=== PATIENT | male | born 1965 | race African-American/Black ===

== ENCOUNTER 2017-06-13 09:14 | Inpatient (IN) | payer OTHER ==
[2017-06-13 11:40] VITALS: BMI 24.5
--- NOTE | 2017-06-13 12:09 | HP ---
CIWA Score - CIWA Score Nausea/Vomitin Muscle Tremors: 3 Anxiety: 3 Agitation: 2 Paroxysmal Sweats: 1-Minimal Palms Moist Orientation: 0-Oriented Tacttile Disturbances: 2-Mild Itch/Numbness/Burn Auditory Disturbances: 2-Mild Harshness/Frighten Visual Disturbances: 2-Mild Sensitivity Headache: 2-Mild CIWA-Ar Total Score: 20 Admission ROS BHS - HPI Chief Complaint: I NEED HELP TO STOP DRINKING ALCOHOL AND COCAINE Allergies/Adverse Reactions: Allergies Allergy/AdvReac Type Severity Reaction Status Date / Time No Known Drug Allergies Allergy Verified 06/13/17 12:00 turkey Allergy Mild Uncoded 06/13/17 12:00 History of Present Illness: THIS 51 YEARS OLD WITH ALCOHOL AND COCAINE DEPENDENCE,SEEKING DETOX,LAST TREATMENT IN 05/2012 COMPLETED SYNCOPE NICOTINE DEPENDENCE INSOMNIA LONGEST SOBRIETY 5 YEARS Exam Limitations: No Limitations - Ebola screening Have you traveled outside of the country in the last 21 days: No Have you had contact with anyone from an Ebola affected area: No Have you been sick,other than usual withdrawal symptoms: No Do you have a fever: No - Review of Systems Constitutional: Loss of Appetite, Malaise, Night Sweats, Changes in sleep, Weakness, Unintentional Wgt. Loss EENT: reports: Nose Congestion Respiratory: reports: No Symptoms reported, Other (ASTHMA) Cardiac: reports: Palpitations GI: reports: Diarrhea, Nausea, Vomiting, Abdominal cramping : reports: No Symptoms Reported Musculoskeletal: reports: Back Pain, Muscle Pain Integumentary: reports: Dryness Neuro: reports: Headache, Tremors Endocrine: reports: No Symptoms Reported Hematology: reports: No Symptoms Reported Psychiatric: reports: No Sypmtoms Reported, Mood/Affect Appropiate, Orientated x3 (INSOMNIA) Patient History - Patient Medical History Hx Anemia: No Hx Asthma: Yes (albuterol , advair) Hx Chronic Obstructive Pulmonary Disease (COPD): No Hx Cancer: No Hx Cardiac Disorders: No Hx Congestive Heart Failure: No Hx Hypertension: No Hx Hypercholesterolemia: No Hx Pacemaker: No HX Cerebrovascular Accident: No Hx Seizures: No Hx Dementia: No Hx Diabetes: No Hx Gastrointestinal Disorders: No Hx Liver Disease: No Hx Genitourinary Disorders: No Hx Sexually Transmitted Disorders: No Hx Renal Disease (ESRD): No Hx Thyroid Disease: No Hx Human Immunodeficiency Virus (HIV): No (02/2012- negative) Hx Hepatitis C: No Hx Depression: Yes (lexapro 20mg/day) Hx Suicide Attempt: No Hx Bipolar Disorder: No Hx Schizophrenia: No Other Medical History: NO SUICIDAL,NO HOMICIDAL - Patient Surgical History Past Surgical History: No Hx Neurologic Surgery: No Hx Cataract Extraction: No Hx Cardiac Surgery: No Hx Lung Surgery: No Hx Breast Surgery: No Hx Breast Biopsy: No Hx Abdominal Surgery: No Hx Appendectomy: No Hx Cholecystectomy: No Hx Genitourinary Surgery: No Hx Section: No Hx Orthopedic Surgery: No Anesthesia Reaction: No - PPD History Documented Results: Negative w/o proof Implanted On Prior [facility] Admission?: Yes Date: 03/26/12 Results: 0 MM PPD to be Administered?: Yes - Smoking Cessation Smoking history: Current every day smoker Have you smoked in the past 12 months: Yes Aproximately how many cigarettes per day: 10 Cigars Per Day: 0 Hx Chewing Tobacco Use: No Initiated information on smoking cessation: Yes 'Breaking Loose' booklet given: 06/13/17 - Substance & Tx. History Hx Alcohol Use: Yes Hx Substance Use: Yes Substance Use Type: Alcohol, Cocaine Hx Substance Use Treatment: Yes ([facility] [place] 05/27) - Substances Abused Alcohol Route: Oral Frequency: Daily Amount used: 12PK BEER/ 1 PINT Age of first use: 24 Date of Last Use: 06/13/17 Crack Route: Smoking Frequency: Daily Amount used: $40 Age of first use: 28 Date of Last Use: 06/13/17 Family Disease History - Family Disease History Family History: Denies Admission Physical Exam [facility] - Vital Signs Vital Signs: Vital Signs - 24 hr 06/13/17 11:33 Temperature 98.5 F Pulse Rate 106 H Respiratory 18 Rate Blood Pressure 122/82 - Physical General Appearance: Yes: Moderate Distress, Tremorous, Irritable, Sweating, Anxious HEENTM: Yes: Normal ENT Inspection, BJ, Pharynx Normal Respiratory: Yes: Lungs Clear, Normal Breath Sounds, No Respiratory Distress Neck: Yes: Within Normal Limits, Supple, Trachea in good position Breast: Yes: Within Normal Limits Cardiology: Yes: Within Normal Limits, Regular Rhythm, Regular Rate, S1, S2 Abdominal: Yes: Within Normal Limits, Normal Bowel Sounds, Non Tender, Flat, Soft Genitourinary: Yes: Within Normal Limits Back: Yes: Muscle Spasm Musculoskeletal: Yes: Back pain, Muscle Pain Extremities: Yes: Tremors Neurological: Yes: licensed sales assistant II-XII NML intact, Fully Oriented, Alert, Motor Strength 5/5 Integumentary: Yes: Dry Lymphatic: Yes: Within Normal Limits - Diagnostic (1) Alcohol dependence with uncomplicated withdrawal Current Visit: Yes Status: Acute (2) Cocaine dependence Current Visit: Yes Status: Acute (3) Nicotine dependence Current Visit: Yes Status: Acute (4) Asthma Current Visit: Yes Status: Acute (5) Major depressive disorder Current Visit: No Status: Active (6) Weight loss Current Visit: Yes Status: Acute (7) Insomnia Current Visit: Yes Status: Acute Cleared for Admission S - Detox or Rehab [facility] Level of Care: Medically Managed Detox Regimen/Protocol: Librium [facility] Breath Alcohol Content Breath Alcohol Content: 0.172 Urine Drug Screen - Results Drug Screen Negative: No Urine Drug Screen Results: DORA-Cocaine
[2017-06-13] MEDS ORDERED: chlordiazePOXIDE HCL 25 MG CAPSULE PO PRN (12:20)
[2017-06-13] MEDS ORDERED: MAGNESIUM CITRATE 300 ML BOTTLE PO PRN (12:20)
[2017-06-13] MEDS ORDERED: ACETAMINOPHEN 325 MG TABLET (FP) PO PRN (12:20)
[2017-06-13] MEDS ORDERED: P-EPHED 60MG/TRIPROLIDI 2.5MG TABLET PO PRN (12:20)
[2017-06-13] MEDS ORDERED: IBUPROFEN 400 MG TABLET (FP) PO PRN (12:20)
[2017-06-13] MEDS ORDERED: LOPERAMIDE HCL 2 MG CAPSULE PO PRN (12:20)
[2017-06-13] MEDS ORDERED: MENTHOL/PHENOL 1 EACH UD MM PRN (12:20)
[2017-06-13] MEDS ORDERED: MAG HYDROX/AL HYDROX/SIMETH 30 ML UNIT-DOSE CUP PO PRN (12:20)
[2017-06-13] MEDS ORDERED: guaiFENesin/D-METHORPHAN HB 10 ML UNIT-DOSE CUPS PO PRN (12:20)
[2017-06-13] MEDS ORDERED: MAGNESIUM HYDROX 2400MG/30ML ORAL SUSPENSION 30 ML CUP PO PRN (12:20)
[2017-06-13] MEDS ORDERED: hydrOXYzine PAMOATE 50 MG CAPSULE (FP) PO PRN (12:20)
[2017-06-13] MEDS ORDERED: diphenhydrAMINE HCL 50 MG CAPSULE PO PRN (12:20)
[2017-06-13] MEDS ORDERED: chlordiazePOXIDE HCL 25 MG CAPSULE PO ONE (14:09)
[2017-06-13] MEDS: NICOTINE 21 MG/24 HOURS TOPICAL PATCH TD SCH (15:13)
[2017-06-13] MEDS: chlordiazePOXIDE HCL 25 MG CAPSULE PO SCH ×2 (17:55→22:17)
[2017-06-13] MEDS: THIAMINE HCL 100 MG TABLET (FP) PO SCH (22:18)
[2017-06-13 23:28] LABS: URINE APPEARANCE CLEAR; URINE BILIRUBIN NEGATIVE (NEGATIVE); URINE BLOOD NEGATIVE (NEGATIVE); URINE COLOR STRAW; URINE GLUCOSE (UA) NEGATIVE (NEGATIVE); URINE KETONE NEGATIVE (NEGATIVE); URINE LEUK ESTERASE NEGATIVE (NEGATIVE); URINE NITRITE NEGATIVE (NEGATIVE); URINE PROTEIN NEGATIVE (NEGATIVE); URINE UROBILINOGEN NEGATIVE mg/dL (0.2-1.0)
[2017-06-14] MEDS: chlordiazePOXIDE HCL 25 MG CAPSULE PO SCH ×4 (06:44→22:12)
[2017-06-14] MEDS: NICOTINE 21 MG/24 HOURS TOPICAL PATCH TD SCH (10:18)
[2017-06-14] MEDS: PRENATAL VITAMINS W/ FOLIC ACID TABLET (FP) PO SCH (10:18)
[2017-06-14 10:27] LABS: ALBUMIN 4.2 g/dl (3.4-5.0); ANION GAP 12 (8-16); BILIRUBIN,TOTAL 1.3 mg/dL (0.2-1.0); CALCIUM 8.7 mg/dL (8.5-10.1); CO2 23 mmol/L (21-32); CREATININE 1.1 mg/dL (0.7-1.3); GLUCOSE,RANDOM 102 mg/dL (74-106); SGOT/AST 17 U/L (15-37); SGPT/ALT 19 U/L (12-78); TOT PROT 7.6 g/dl (6.4-8.2)
[2017-06-14 10:28] LABS: ALK PHOS 61 U/L (45-117)
[2017-06-14] MEDS ORDERED: FLU VACCINE QUAD 60 MCG/0.5 ML (MDV 17-18) IM ONE (12:00)
--- NOTE | 2017-06-14 13:08 | EKG ---
Test Reason : Blood Pressure : / mmHG Vent. Rate : 080 BPM Atrial Rate : 080 BPM P-R Int : 172 ms QRS Dur : 082 ms QT Int : 390 ms P-R-T Axes : 072 070 074 degrees QTc Int : 449 ms NORMAL SINUS RHYTHM NORMAL ECG NO PREVIOUS ECGS AVAILABLE Confirmed by GABBY CHAN MD ([id number]) on 06/14/2017 1:08:16 PM Referred By: Confirmed By:GABBY CHAN MD
--- NOTE | 2017-06-14 14:03 | PN ---
[facility] CIWA - CIWA Score Nausea/Vomitin Muscle Tremors: 3 Anxiety: 3 Agitation: 2 Paroxysmal Sweats: 1-Minimal Palms Moist Orientation: 0-Oriented Tacttile Disturbances: 1-Very Mild Itch/Numbness Auditory Disturbances: 1-Very Mild Visual Disturbances: 1-Very Mild Sensitivity Headache: 2-Mild CIWA-Ar Total Score: 17 BHS Progress Note (SOAP) Subjective: ALERT,IRRITABLE,ANXIOUS,INTERRUPTED SLEEP,TREMOR,PAIN IN THE BODY Objective: 06/14/17 14:00 Vital Signs Temperature 96.3 F L 06/14/17 13:36 Pulse Rate 116 H 06/14/17 13:36 Respiratory Rate 20 06/14/17 13:36 Blood Pressure 108/72 06/14/17 13:36 O2 Sat by Pulse Oximetry (%) EKG NSR,NORMAL ECG Laboratory Last Values Sodium 135 mmol/L (136-145) L 06/14/17 06:00 Potassium 3.2 mmol/L (3.5-5.1) L D 06/14/17 06:00 Chloride 100 mmol/L (98-107) 06/14/17 06:00 Carbon Dioxide 23 mmol/L (21-32) D 06/14/17 06:00 Anion Gap 12 (8-16) 06/14/17 06:00 BUN 4 mg/dL (7-18) L D 06/14/17 06:00 Creatinine 1.1 mg/dL (0.7-1.3) 06/14/17 06:00 Creat Clearance w eGFR > 60 (>60) 06/14/17 06:00 Random Glucose 102 mg/dL (74-106) D 06/14/17 06:00 Calcium 8.7 mg/dL (8.5-10.1) 06/14/17 06:00 Total Bilirubin 1.3 mg/dL (0.2-1.0) H 06/14/17 06:00 AST 17 U/L (15-37) D 06/14/17 06:00 ALT 19 U/L (12-78) D 06/14/17 06:00 Alkaline Phosphatase 61 U/L (45-117) 06/14/17 06:00 Total Protein 7.6 g/dl (6.4-8.2) 06/14/17 06:00 Albumin 4.2 g/dl (3.4-5.0) 06/14/17 06:00 Urine Color Straw 06/13/17 22:23 Urine Appearance Clear 06/13/17 22:23 Urine pH 6.0 (5.0-8.0) 06/13/17 22:23 Ur Specific [place] <= 1.005 (1.005-1.025) 06/13/17 22:23 Urine Protein Negative (NEGATIVE) 06/13/17 22:23 Urine Glucose (UA) Negative (NEGATIVE) 06/13/17 22:23 Urine Ketones Negative (NEGATIVE) 06/13/17 22:23 Urine Blood Negative (NEGATIVE) 06/13/17 22:23 Urine Nitrite Negative (NEGATIVE) 06/13/17 22:23 Urine Bilirubin Negative (NEGATIVE) 06/13/17 22:23 Urine Urobilinogen Negative mg/dL (0.2-1.0) 06/13/17 22:23 RPR Titer Nonreactive (NONREACTIVE) 06/14/17 06:00 K IS 3.2 Assessment: 06/14/17 14:01 WITHDRAWAL SYMPTOM Plan: WITHDRAWAL SYMPTOM,HYPOKALEMIA K IS 3.2,K DUR 20 MEQ PO BID
[2017-06-14] MEDS ORDERED: POTASSIUM CHLORIDE TABS 20 MEQ TABLET.ER (FP) PO ONE (15:00)
--- NOTE | 2017-06-14 18:37 | CONSULT ---
[facility] Psychiatric Consult - Data Date of interview: 06/14/17 Admission source: [facility] Identifying data: Readmission to [facility] for this 51 y/o AA male seeking detox treatment on for alcohol and cocaine dependence.Patient is single without children,domiciled,uneployed and supporteed on SSI benefits. Substance Abuse History: Discussed with patient.Confirmed this report. Smoking Cessation. Smoking history: Current every day smoker. Have you smoked in the past 12 months: Yes. Aproximately how many cigarettes per day: 10. Cigars Per Day: 0. Hx Chewing Tobacco Use: No. Initiated information on smoking cessation : Yes. 'Breaking Loose' booklet given: 06/13/17. - Substance & Tx. History. Hx Alcohol Use: Yes. Hx Substance Use: Yes. Substance Use Type: Alcohol, Cocaine. Hx Substance Use Treatment: Yes ([facility] IN 05/27). - Substances Abused. Alcohol. Route: Oral. Frequency: Daily. Amount used: 12PK BEER/ 1 PINT. Age of first use: 24. Date of Last Use: 06/13/17. Crack. Route: Smoking. Frequency: Daily. Amount used: $40. Age of first use: 28. Date of Last Use: 06/13/17 Medical History: Bronchial asthma. Psychiatric History: Diagnosed with Bipolar Disorder.Prescribed lexapro 20 mg/ day + trazodone 100 mg/hs + zyprexa 20 mg/day.Patient is followed at [facility] in [facility].Mr Obrien reports one psychiatric hospitalization,in 2010,at the [facility].No history of suicide attempt but suicidal ideation to jump off a roof (reason of his hospitalization). Physical/Sexual Abuse/Trauma History: Patient denies. Additional Comment: Urine Drug Screen Results: DORA-Cocaine.Noted. Mental Status Exam - Mental Status Exam Alert and Oriented to: Time, Place, Person Cognitive Function: Good Patient Appearance: Well Groomed Mood: Hopeful, Euthymic Affect: Normal Range Patient Behavior: Appropriate, Cooperative (good historian) Speech Pattern: Clear Voice Loudness: Normal Thought Process: Goal Oriented Thought Disorder: Not Present Hallucinations: Denies Suicidal Ideation: Denies Homicidal Ideation: Denies Insight/Judgement: Poor Sleep: Poorly, Difficulty falling asleep Appetite: Good Muscle strength/Tone: Normal Gait/Station: Normal Psychiatric Findings - Problem List ([place] 1, 2,3) (1) Bipolar disorder Current Visit: Yes Status: Chronic (2) Alcohol dependence with uncomplicated withdrawal Current Visit: Yes Status: Acute (3) Cocaine dependence Current Visit: Yes Status: Acute (4) Nicotine dependence Current Visit: Yes Status: Acute (5) Insomnia Current Visit: Yes Status: Acute - Initial Treatment Plan Initial Treatment Plan: Psychoeducation.Detoxification.Medications : lexapro 10 mg po daily + trazodone 100 mg po hs + zyprexa 20 mg po hs (all confirmed by pharmacy claims of 06/13/17 at [facility]).Patient declines lithium ( 300 mg/day as per claims).Side effects/benfits of these drugs are discussed with patient.Made aware,in particular,of the risk for metabolic syndrome, suicidal ideation and priapism.History of good tolerability as per patient.He agrees to resume his medications in this hospital course.Observation.NO scripts needed at discharge from [facility].
[2017-06-14 20:37] LABS: MCH 34.1 pg (25.7-33.7); MCHC 34.1 g/dl (32.0-35.9); MEAN CELL VOLUME 100.2 fl (80-96); MEAN PLT VOLUME 9.6 fl (7.5-11.1); PLATELET COUNT 200 K/MM3 (134-434)
[2017-06-14] MEDS: THIAMINE HCL 100 MG TABLET (FP) PO SCH (22:12)
[2017-06-14] MEDS: OLANZapine 10 MG TABLET PO SCH (22:12)
[2017-06-14] MEDS: POTASSIUM CHLORIDE TABS 20 MEQ TABLET.ER (FP) PO SCH (22:12)
[2017-06-14] MEDS: traZODone HCL 100 MG TABLET (FP) PO SCH (22:13)
[2017-06-15] MEDS: chlordiazePOXIDE HCL 25 MG CAPSULE PO SCH ×2 (05:22→10:18)
[2017-06-15] MEDS: PRENATAL VITAMINS W/ FOLIC ACID TABLET (FP) PO SCH (10:18)
[2017-06-15] MEDS: NICOTINE 21 MG/24 HOURS TOPICAL PATCH TD SCH (10:18)
[2017-06-15] MEDS: ESCITALOPRAM OXALATE 10 MG TABLET (FP) PO SCH (10:18)
[2017-06-15] MEDS: POTASSIUM CHLORIDE TABS 20 MEQ TABLET.ER (FP) PO SCH ×2 (10:18→22:12)
--- NOTE | 2017-06-15 13:18 | PN ---
[facility] CIWA - CIWA Score Nausea/Vomitin Muscle Tremors: 2 Anxiety: 2 Agitation: 2 Paroxysmal Sweats: 1-Minimal Palms Moist Orientation: 0-Oriented Tacttile Disturbances: 1-Very Mild Itch/Numbness Auditory Disturbances: 1-Very Mild Visual Disturbances: 0-None Headache: 2-Mild CIWA-Ar Total Score: 14 BHS Progress Note (SOAP) Subjective: ALERT,IRRITABLE,ANXIOUS,INTERRUPTED SLEEP,PAIN IN THE BODY Objective: 06/15/17 13:17 Vital Signs Temperature 96.5 F L 06/15/17 11:46 Pulse Rate 77 06/15/17 11:46 Respiratory Rate 99 H 06/15/17 11:46 Blood Pressure 114/79 06/15/17 11:46 O2 Sat by Pulse Oximetry (%) Assessment: 06/15/17 13:17 WITHDRAWAL SYMPTOM Plan: CONTINUE DETOX
[2017-06-15] MEDS: chlordiazePOXIDE 5 MG CAPSULE PO SCH ×2 (19:50→22:12)
[2017-06-15] MEDS: traZODone HCL 100 MG TABLET (FP) PO SCH (22:12)
[2017-06-15] MEDS: OLANZapine 10 MG TABLET PO SCH (22:12)
[2017-06-15] MEDS: THIAMINE HCL 100 MG TABLET (FP) PO SCH (22:12)
[2017-06-16] MEDS: chlordiazePOXIDE 5 MG CAPSULE PO SCH ×2 (05:53→10:18)
[2017-06-16] MEDS: NICOTINE 21 MG/24 HOURS TOPICAL PATCH TD SCH (10:17)
[2017-06-16] MEDS: ESCITALOPRAM OXALATE 10 MG TABLET (FP) PO SCH (10:18)
[2017-06-16] MEDS: POTASSIUM CHLORIDE TABS 20 MEQ TABLET.ER (FP) PO SCH ×2 (10:18→22:29)
[2017-06-16] MEDS: PRENATAL VITAMINS W/ FOLIC ACID TABLET (FP) PO SCH (10:18)
--- NOTE | 2017-06-16 14:24 | PN ---
BHS Progress Note (SOAP) Subjective: feeling better little sweats no shakes/tremors Objective: 06/16/17 14:22 Vital Signs Temperature 97 F L 06/16/17 09:34 Pulse Rate 92 H 06/16/17 09:34 Respiratory Rate 16 06/16/17 09:34 Blood Pressure 133/70 06/16/17 09:34 O2 Sat by Pulse Oximetry (%) AAOx3 ambulating no acute distress Assessment: 06/16/17 14:22 no withdrawals noted Plan: pt may leave to rehab today
--- NOTE | 2017-06-16 14:25 | DS ---
[facility] Detox Discharge Summary Admission Date: 06/13/17 Discharge Date: 06/16/17 - History Present History: Alcohol Dependence, Cocaine Dependence - Physical Exam Results Vital Signs: Vital Signs Temperature 97 F L 06/16/17 09:34 Pulse Rate 92 H 06/16/17 09:34 Respiratory Rate 16 06/16/17 09:34 Blood Pressure 133/70 06/16/17 09:34 O2 Sat by Pulse Oximetry (%) - Treatment Hospital Course: Detox Protocol Followed, Detoxed Safely, Responded well, Discharged Condition Good, Rehab Referral Accepted - Medication Discharge Medications: Ambulatory Orders Albuterol Sulfate Inhaler - [Ventolin HFA Inhaler -] 2 inh IH Q4H PRN 03/24/12 Zolpidem Tartrate [Ambien] 10 mg PO HS 06/13/17 - AMA Did Patient Leave Against Medical Advice: No (accepted to rehab at [facility] )
[2017-06-16] MEDS: chlordiazePOXIDE HCL 10 MG CAPSULE PO SCH ×2 (17:53→22:29)
[2017-06-16] MEDS: THIAMINE HCL 100 MG TABLET (FP) PO SCH (22:29)
[2017-06-16] MEDS: traZODone HCL 100 MG TABLET (FP) PO SCH (22:29)
[2017-06-16] MEDS: OLANZapine 10 MG TABLET PO SCH (22:29)
[2017-06-17] MEDS: chlordiazePOXIDE HCL 10 MG CAPSULE PO SCH ×2 (05:44→10:00)
--- NOTE | 2017-06-17 09:22 | DS ---
[facility] Detox Discharge Summary Admission Date: 06/13/17 Discharge Date: 06/17/17 - History Present History: Alcohol Dependence, Cocaine Dependence - Physical Exam Results Vital Signs: Vital Signs Temperature 97.9 F 06/17/17 06:00 Pulse Rate 80 06/17/17 06:00 Respiratory Rate 18 06/17/17 06:00 Blood Pressure 128/76 06/17/17 06:00 O2 Sat by Pulse Oximetry (%) - Treatment Hospital Course: Detox Protocol Followed, Detoxed Safely, Responded well, Discharged Condition Good, Rehab Referral Accepted - Medication Discharge Medications: Ambulatory Orders Albuterol Sulfate Inhaler - [Ventolin HFA Inhaler -] 2 inh IH Q4H PRN 03/24/12 - AMA Did Patient Leave Against Medical Advice: No (rehab at [facility])
[2017-06-17] MEDS: NICOTINE 21 MG/24 HOURS TOPICAL PATCH TD SCH (10:00)
[2017-06-17] MEDS: POTASSIUM CHLORIDE TABS 20 MEQ TABLET.ER (FP) PO SCH (10:15)
[2017-06-17] MEDS: PRENATAL VITAMINS W/ FOLIC ACID TABLET (FP) PO SCH (10:15)
[2017-06-17] MEDS: ESCITALOPRAM OXALATE 10 MG TABLET (FP) PO SCH (10:15)
[2017-06-17 10:52] VITALS: BP 139/93; PULSE 86; TEMP 97.3
== END 2017-06-17 11:27 | disposition other institution (70) | DRG 774 ==
LOC: YASAS 09:14 → Y6N 13:28
PROVIDERS: ADMIT Internal Medicine; ATTEND Internal Medicine
PROC: HZ2ZZZZ Detoxification Services for Substance Abuse Treatment (ICD-10-PCS; principal; 2017-06-13)
DX: F10.230 Alcohol dependence with withdrawal, uncomplicated (principal); F14.20 Cocaine dependence, uncomplicated; F17.210 Nicotine dependence, cigarettes, uncomplicated; F31.9 Bipolar disorder, unspecified; G47.00 Insomnia, unspecified; J45.909 Unspecified asthma, uncomplicated; R63.4 Abnormal weight loss
CPT/HCPCS: 36415; 80053; 81003; 85027; 86593; 93005; 93010

== ENCOUNTER 2017-06-17 11:48 | Inpatient (IN) | payer OTHER ==
[2017-06-17] MEDS ORDERED: guaiFENesin/D-METHORPHAN HB 10 ML UNIT-DOSE CUPS PO PRN (15:23)
[2017-06-17] MEDS ORDERED: MENTHOL/PHENOL 1 EACH UD MM PRN (15:23)
[2017-06-17] MEDS ORDERED: P-EPHED 60MG/TRIPROLIDI 2.5MG TABLET PO PRN (15:23)
[2017-06-17] MEDS ORDERED: MAG HYDROX/AL HYDROX/SIMETH 30 ML UNIT-DOSE CUP PO PRN (15:23)
[2017-06-17] MEDS ORDERED: MAGNESIUM HYDROX 2400MG/30ML ORAL SUSPENSION 30 ML CUP PO PRN (15:23)
[2017-06-17] MEDS ORDERED: ACETAMINOPHEN 325 MG TABLET (FP) PO PRN (15:23)
[2017-06-17] MEDS ORDERED: hydrOXYzine PAMOATE 50 MG CAPSULE (FP) PO PRN (15:23)
[2017-06-17] MEDS ORDERED: MAGNESIUM CITRATE 300 ML BOTTLE PO PRN (15:23)
[2017-06-17] MEDS ORDERED: IBUPROFEN 400 MG TABLET (FP) PO PRN (15:23)
[2017-06-17] MEDS ORDERED: NICOTINE POLACRILEX 2 MG GUM BUC PRN (15:23)
[2017-06-17] MEDS ORDERED: LOPERAMIDE HCL 2 MG CAPSULE PO PRN (15:23)
--- NOTE | 2017-06-17 15:23 | HP ---
[facility] Rehab Assess/Revision - Admission History Admitted to Rehab from: [facility] [place] Date of Admission to Rehab: 06/17/2017 - Vital signs Vital Signs: Vital Signs Period Temp Pulse Resp BP Sys/Hollingsworth Pulse Ox Last 24 Hr 98.6 F 93 18 120/81 - Findings Detox History & Physical reviewed: Yes Concur with findings: Yes Comments/Additional Findings: hypokalemia noted. Will repeat. Inpatient Rehab Admission - Initial Determination Are CD services needed?: Yes Free of communicable disease: Yes Not in need of hospitalization: Yes - Rehab Admission Criteria Comorbidities: Yes Patient is meeting Inpatient Rehab admission criteria:: Yes
[2017-06-17] MEDS ORDERED: ALBUTEROL SO4 18 GM HFA INHALER IH PRN (15:27)
[2017-06-17] MEDS: diphenhydrAMINE HCL 50 MG CAPSULE PO PRN (21:51)
[2017-06-17] MEDS: THIAMINE HCL 100 MG TABLET (FP) PO SCH (21:51)
--- NOTE | 2017-06-18 06:22 | HP ---
Psychiatrist Admission - Data Date of interview: 06/18/17 Admission source: [facility] Identifying data: This is the second [facility] admission for this 51 years old single Black male, unemployed on SSI, domiciled Medical History: Significant for Bronchial asthma.Smokes 10 cigarettes daily Psychiatric History: Reports that his first psychiatric treatment was in 1984 when he was admitted to [facility] for command auditory hallucinations and suicidal ideations. He was diagnosed with Bipolar Disorder and treated with Zyprexa and Lexapro. Claims that he failed to follow up after discharge. Reports multiple subsequent admissions to various institutions([facility], [facility], [facility], [place]). Most recent one was in 2007 to [facility] for suicidal ideation. Reports receiving OPD care at [facility] in [facility] and he is prescribed Lexapro 20 mg po daily, Zyprexa 20 mg po HS and Trazadone 100 mg po HS. Denies history of suicidal attempt. At present, reports doing well. Denies experiencing psychotic, manic or depressive symptoms, S/H ideations Physical/Sexual Abuse/Trauma History: Denies history of verbal, physical or sexual abuse as well as DV relationship. No service Additional Comment: No criminal history Vital Signs: Vital Signs - 24 hr 06/17/17 06/18/17 06/18/17 12:29 00:28 04:23 Temperature 98.6 F Pulse Rate 93 H Respiratory 18 18 18 Rate Blood Pressure 120/81 Allergies/Adverse Reactions: Allergies Allergy/AdvReac Type Severity Reaction Status Date / Time No Known Drug Allergies Allergy Verified 06/17/17 12:15 turkey Allergy Mild Uncoded 06/17/17 12:15 Date of last physical exam: 06/13/17 Concur with the findings of this exam: Yes - Substance Abuse/Tx History Hx Alcohol Use: Yes Hx Substance Use: Yes Substance Use Type: Alcohol (Started drinking alcohol at age 24, consumes one pint of vodka & a 12pk of beer daily. Last drank on ), Cocaine (Started smoking crack cocaine at age 28, consumes $40 worth daily. Last smoked on ) Hx Substance Use Treatment: Yes (7 inpt detox & one inpt rehab @ [facility]) Mental Status Exam - Mental Status Exam Alert and Oriented to: Time, Place, Person Cognitive Function: Fair Patient Appearance: Well Groomed Mood: Hopeful, Euthymic Affect: Appropriate, Normal Range Patient Behavior: Cooperative Speech Pattern: Clear Voice Loudness: Normal Thought Process: Intact, Goal Oriented Hallucinations: Denies Suicidal Ideation: Denies Homicidal Ideation: Denies Insight/Judgement: Fair Sleep: Poorly Appetite: Good Muscle strength/Tone: Normal Gait/Station: Normal Psychiatric Findings - Problem List ([place] 1, 2,3) (1) Alcohol dependence Current Visit: Yes Status: Acute (2) Cocaine dependence Current Visit: No Status: Chronic (3) Nicotine dependence Current Visit: No Status: Chronic (4) Bipolar disorder Current Visit: No Status: Chronic (5) Asthma Current Visit: No Status: Chronic - Initial Treatment Plan Initial Treatment Plan: 1) Continue Lexapro 20 mg po daily, Zyprexa 20 mg po HS and Trazadone 100 mg po HS. 2) Monitor progress
[2017-06-18] MEDS: PRENATAL VITAMINS W/ FOLIC ACID TABLET (FP) PO SCH (10:22)
[2017-06-18] MEDS: ESCITALOPRAM OXALATE 10 MG TABLET (FP) PO SCH (10:23)
[2017-06-18] MEDS: NICOTINE 14 MG/24 HOURS TOPICAL PATCH TD SCH (10:24)
[2017-06-18 13:58] LABS: ANION GAP 8 (8-16); CALCIUM 8.2 mg/dL (8.5-10.1); CO2 29 mmol/L (21-32); CREATININE 0.9 mg/dL (0.7-1.3); GLUCOSE,RANDOM 140 mg/dL (74-106)
[2017-06-18] MEDS: THIAMINE HCL 100 MG TABLET (FP) PO SCH (21:15)
[2017-06-18] MEDS: OLANZapine 10 MG TABLET PO SCH (21:15)
[2017-06-18] MEDS: traZODone HCL 100 MG TABLET (FP) PO SCH (21:15)
[2017-06-19] MEDS: PRENATAL VITAMINS W/ FOLIC ACID TABLET (FP) PO SCH (09:34)
[2017-06-19] MEDS: ESCITALOPRAM OXALATE 10 MG TABLET (FP) PO SCH (09:34)
[2017-06-19] MEDS: NICOTINE 14 MG/24 HOURS TOPICAL PATCH TD SCH (09:34)
[2017-06-19] MEDS: OLANZapine 10 MG TABLET PO SCH (21:31)
[2017-06-19] MEDS: traZODone HCL 100 MG TABLET (FP) PO SCH (21:31)
[2017-06-19] MEDS: THIAMINE HCL 100 MG TABLET (FP) PO SCH (21:31)
[2017-06-20] MEDS: NICOTINE 14 MG/24 HOURS TOPICAL PATCH TD SCH (09:51)
[2017-06-20] MEDS: PRENATAL VITAMINS W/ FOLIC ACID TABLET (FP) PO SCH (09:51)
[2017-06-20] MEDS: ESCITALOPRAM OXALATE 10 MG TABLET (FP) PO SCH (09:51)
[2017-06-20] MEDS: THIAMINE HCL 100 MG TABLET (FP) PO SCH (21:23)
[2017-06-20] MEDS: OLANZapine 10 MG TABLET PO SCH (21:23)
[2017-06-20] MEDS: traZODone HCL 100 MG TABLET (FP) PO SCH (21:24)
[2017-06-21] MEDS: NICOTINE 14 MG/24 HOURS TOPICAL PATCH TD SCH (09:43)
[2017-06-21] MEDS: PRENATAL VITAMINS W/ FOLIC ACID TABLET (FP) PO SCH (09:43)
[2017-06-21] MEDS: ESCITALOPRAM OXALATE 10 MG TABLET (FP) PO SCH (09:43)
[2017-06-21] MEDS: THIAMINE HCL 100 MG TABLET (FP) PO SCH (21:12)
[2017-06-21] MEDS: traZODone HCL 100 MG TABLET (FP) PO SCH (21:13)
[2017-06-21] MEDS: OLANZapine 10 MG TABLET PO SCH (21:13)
[2017-06-22] MEDS: PRENATAL VITAMINS W/ FOLIC ACID TABLET (FP) PO SCH (09:34)
[2017-06-22] MEDS: ESCITALOPRAM OXALATE 10 MG TABLET (FP) PO SCH (09:34)
[2017-06-22] MEDS: NICOTINE 14 MG/24 HOURS TOPICAL PATCH TD SCH (09:34)
[2017-06-22] MEDS: THIAMINE HCL 100 MG TABLET (FP) PO SCH (21:20)
[2017-06-22] MEDS: OLANZapine 10 MG TABLET PO SCH (21:20)
[2017-06-22] MEDS: traZODone HCL 100 MG TABLET (FP) PO SCH (21:20)
[2017-06-23] MEDS: NICOTINE 14 MG/24 HOURS TOPICAL PATCH TD SCH (09:43)
[2017-06-23] MEDS: PRENATAL VITAMINS W/ FOLIC ACID TABLET (FP) PO SCH (09:43)
[2017-06-23] MEDS: ESCITALOPRAM OXALATE 10 MG TABLET (FP) PO SCH (09:43)
[2017-06-23] MEDS: traZODone HCL 100 MG TABLET (FP) PO SCH (21:20)
[2017-06-23] MEDS: OLANZapine 10 MG TABLET PO SCH (21:20)
[2017-06-23] MEDS: THIAMINE HCL 100 MG TABLET (FP) PO SCH (21:20)
[2017-06-24] MEDS: ESCITALOPRAM OXALATE 10 MG TABLET (FP) PO SCH (09:58)
[2017-06-24] MEDS: NICOTINE 14 MG/24 HOURS TOPICAL PATCH TD SCH (09:58)
[2017-06-24] MEDS: PRENATAL VITAMINS W/ FOLIC ACID TABLET (FP) PO SCH (09:58)
[2017-06-24] MEDS: THIAMINE HCL 100 MG TABLET (FP) PO SCH (21:07)
[2017-06-24] MEDS: OLANZapine 10 MG TABLET PO SCH (21:07)
[2017-06-24] MEDS: traZODone HCL 100 MG TABLET (FP) PO SCH (21:07)
[2017-06-24] MEDS: diphenhydrAMINE HCL 50 MG CAPSULE PO PRN (21:07)
[2017-06-25] MEDS: NICOTINE 14 MG/24 HOURS TOPICAL PATCH TD SCH (09:49)
[2017-06-25] MEDS: ESCITALOPRAM OXALATE 10 MG TABLET (FP) PO SCH (09:49)
[2017-06-25] MEDS: PRENATAL VITAMINS W/ FOLIC ACID TABLET (FP) PO SCH (09:49)
[2017-06-25] MEDS: OLANZapine 10 MG TABLET PO SCH (21:13)
[2017-06-25] MEDS: diphenhydrAMINE HCL 50 MG CAPSULE PO PRN (21:13)
[2017-06-25] MEDS: traZODone HCL 100 MG TABLET (FP) PO SCH (21:13)
[2017-06-25] MEDS: THIAMINE HCL 100 MG TABLET (FP) PO SCH (21:13)
[2017-06-26] MEDS: ESCITALOPRAM OXALATE 10 MG TABLET (FP) PO SCH (09:49)
[2017-06-26] MEDS: PRENATAL VITAMINS W/ FOLIC ACID TABLET (FP) PO SCH (09:49)
[2017-06-26] MEDS: NICOTINE 14 MG/24 HOURS TOPICAL PATCH TD SCH (09:50)
[2017-06-26] MEDS: OLANZapine 10 MG TABLET PO SCH (21:09)
[2017-06-26] MEDS: THIAMINE HCL 100 MG TABLET (FP) PO SCH (21:09)
[2017-06-26] MEDS: traZODone HCL 100 MG TABLET (FP) PO SCH (21:09)
[2017-06-27] MEDS: ESCITALOPRAM OXALATE 10 MG TABLET (FP) PO SCH (09:45)
[2017-06-27] MEDS: NICOTINE 14 MG/24 HOURS TOPICAL PATCH TD SCH (09:45)
[2017-06-27] MEDS: PRENATAL VITAMINS W/ FOLIC ACID TABLET (FP) PO SCH (09:45)
[2017-06-27] MEDS: OLANZapine 10 MG TABLET PO SCH (21:05)
[2017-06-27] MEDS: traZODone HCL 100 MG TABLET (FP) PO SCH (21:05)
[2017-06-27] MEDS: THIAMINE HCL 100 MG TABLET (FP) PO SCH (21:05)
[2017-06-28] MEDS: ESCITALOPRAM OXALATE 10 MG TABLET (FP) PO SCH (09:29)
[2017-06-28] MEDS: PRENATAL VITAMINS W/ FOLIC ACID TABLET (FP) PO SCH (09:29)
[2017-06-28] MEDS: NICOTINE 14 MG/24 HOURS TOPICAL PATCH TD SCH (09:29)
[2017-06-28] MEDS: diphenhydrAMINE HCL 50 MG CAPSULE PO PRN (21:12)
[2017-06-28] MEDS: THIAMINE HCL 100 MG TABLET (FP) PO SCH (21:12)
[2017-06-28] MEDS: traZODone HCL 100 MG TABLET (FP) PO SCH (21:12)
[2017-06-28] MEDS: OLANZapine 10 MG TABLET PO SCH (21:12)
[2017-06-29] MEDS: PRENATAL VITAMINS W/ FOLIC ACID TABLET (FP) PO SCH (09:42)
[2017-06-29] MEDS: NICOTINE 14 MG/24 HOURS TOPICAL PATCH TD SCH (09:42)
[2017-06-29] MEDS: ESCITALOPRAM OXALATE 10 MG TABLET (FP) PO SCH (09:42)
[2017-06-29] MEDS: traZODone HCL 100 MG TABLET (FP) PO SCH (21:07)
[2017-06-29] MEDS: THIAMINE HCL 100 MG TABLET (FP) PO SCH (21:07)
[2017-06-29] MEDS: diphenhydrAMINE HCL 50 MG CAPSULE PO PRN (21:07)
[2017-06-29] MEDS: OLANZapine 10 MG TABLET PO SCH (21:07)
[2017-06-30] MEDS: ESCITALOPRAM OXALATE 10 MG TABLET (FP) PO SCH (09:38)
[2017-06-30] MEDS: NICOTINE 14 MG/24 HOURS TOPICAL PATCH TD SCH (09:38)
[2017-06-30] MEDS: PRENATAL VITAMINS W/ FOLIC ACID TABLET (FP) PO SCH (09:39)
[2017-06-30] MEDS: OLANZapine 10 MG TABLET PO SCH (21:05)
[2017-06-30] MEDS: diphenhydrAMINE HCL 50 MG CAPSULE PO PRN (21:05)
[2017-06-30] MEDS: THIAMINE HCL 100 MG TABLET (FP) PO SCH (21:05)
[2017-06-30] MEDS: traZODone HCL 100 MG TABLET (FP) PO SCH (21:06)
[2017-07-01] MEDS: ESCITALOPRAM OXALATE 10 MG TABLET (FP) PO SCH (09:57)
[2017-07-01] MEDS: NICOTINE 14 MG/24 HOURS TOPICAL PATCH TD SCH (09:57)
[2017-07-01] MEDS: PRENATAL VITAMINS W/ FOLIC ACID TABLET (FP) PO SCH (09:57)
--- NOTE | 2017-07-01 15:10 | PN ---
Psychiatric Progress Note Vital Signs: Vital Signs Period Temp Pulse Resp BP Sys/Hollingsworth Pulse Ox Last 24 Hr 98.2 F 86 20-20 123/93 Date of Session: 07/01/17 Chief Complaint:: Discharge Note HPI: Patient addressing Alcohol, Cocaine Dependence comorbid with Nicotine Dependence and Bipolar Disorder ROS: Asthma was medically managed Current Medications: Active Medications Generic Name Dose Route Start Last Admin Trade Name Freq PRN Reason Stop Dose Admin Acetaminophen 650 mg 06/17/17 15:23 Tylenol - PO Q4H PRN FEVER OR PAIN Al Hydroxide/Mg Hydroxide 30 ml 06/17/17 15:23 Mylanta Oral Suspension - PO Q6H PRN DYSPEPSIA Albuterol Sulfate 2 puff 06/17/17 15:27 Ventolin Hfa Inhaler - IH Q4H PRN ASTHMA Diphenhydramine HCl 50 mg 06/17/17 15:23 06/30/17 21:05 Benadryl - PO 50 mg HSMR1 PRN Administration FOR ITCHING Escitalopram Oxalate 10 mg 06/18/17 10:00 07/01/17 09:57 Lexapro - PO 10 mg DAILY FRANCISCO Administration Eucalyptus/Menthol/Phenol/Sorbitol 1 each 06/17/17 15:23 Cepastat Lozenge - MM Q4H PRN SORE THROAT Guaifenesin 10 ml 06/17/17 15:23 Robitussin Dm - PO Q6H PRN COUGH Hydroxyzine Pamoate 50 mg 06/17/17 15:23 Vistaril - PO Q4H PRN AGITATION Ibuprofen 400 mg 06/17/17 15:23 Motrin - PO Q6H PRN PAIN Loperamide HCl 4 mg 06/17/17 15:23 Imodium - PO Q6H PRN DIARRHEA Magnesium Hydroxide 30 ml 06/17/17 15:23 Milk Of Magnesia - PO DAILY PRN CONSTIPATION Nicotine 14 mg 06/18/17 10:00 07/01/17 09:57 Nicoderm Patch - TD 14 mg DAILY FRANCISCO Administration Nicotine Polacrilex 2 mg 06/17/17 15:23 Nicorette Gum - BUC Q2H PRN NICOTINE REPLACEMENT RX Olanzapine 20 mg 06/18/17 22:00 06/30/17 21:05 Zyprexa - PO 20 mg HS FRANCISCO Administration Multivit/Folic Acid/Iron 1 tab 06/18/17 10:00 07/01/17 09:57 Vitamins (Sjr) - PO 1 tab DAILY FRANCISCO Administration Pseudoephedrine/Triprolidine 1 combo 06/17/17 15:23 Actifed - PO TID PRN NASAL CONGESTION Thiamine HCl 100 mg 06/17/17 22:00 06/30/17 21:05 Vitamin B1 - PO 100 mg HS FRANCISCO Administration Trazodone HCl 100 mg 06/18/17 22:00 06/30/17 21:06 Desyrel - PO 100 mg HS FRANCISCO Administration Current Side Effect: No Lab tests ordered: Yes Lab tests reviewed: Yes Provider note:: Patient will complete this program on 07/02/17. He has met his treatment goals and will continue to address his issues in outpatient treatment at [facility]/OPD. He verbalized understanding of the consequences of his addiction and the need to make positive changes to his lifestyle in order to maintain abstinence. He responded well to Lexapro 10 mg po daily, Zyprexa 20 mg po HS and Trazadone 100 mg po HS. Scripts for 30 days supply of these medications will be electronically transmitted to [facility] at [address] [place] [address]. He is stable for discharge on 07/02/17 Total face to face time:: 35 Mental Status Exam - Mental Status Exam Alert and Oriented to: Time, Place, Person Cognitive Function: Fair Patient Appearance: Well Groomed Mood: Hopeful, Euthymic Affect: Appropriate Patient Behavior: Cooperative Speech Pattern: Clear Voice Loudness: Normal Thought Process: Intact, Goal Oriented Thought Disorder: Not Present Hallucinations: Denies Suicidal Ideation: Denies Homicidal Ideation: Denies Insight/Judgement: Fair Sleep: Fair Appetite: Good Muscle strength/Tone: Normal Gait/Station: Normal Psychiatric Treatment Plan - Problem List (1) Alcohol dependence Current Visit: Yes (2) Cocaine dependence Current Visit: No (3) Nicotine dependence Current Visit: No (4) Bipolar disorder Current Visit: No (5) Asthma Current Visit: No Initial treatment plan: Patient is discharged tomorrow and Referred to [facility] for outpatient treatment
[2017-07-01] MEDS: OLANZapine 10 MG TABLET PO SCH (21:14)
[2017-07-01] MEDS: traZODone HCL 100 MG TABLET (FP) PO SCH (21:15)
[2017-07-01] MEDS: diphenhydrAMINE HCL 50 MG CAPSULE PO PRN (21:15)
[2017-07-01] MEDS: THIAMINE HCL 100 MG TABLET (FP) PO SCH (21:15)
[2017-07-02 06:59] VITALS: BP 149/98; PULSE 82; TEMP 98.6
[2017-07-02] MEDS: ESCITALOPRAM OXALATE 10 MG TABLET (FP) PO SCH (09:39)
[2017-07-02] MEDS: PRENATAL VITAMINS W/ FOLIC ACID TABLET (FP) PO SCH (09:39)
[2017-07-02] MEDS: NICOTINE 14 MG/24 HOURS TOPICAL PATCH TD SCH (09:40)
== END 2017-07-02 10:00 | disposition home or self-care (01) | DRG 772 ==
LOC: YASAS 11:48 → Y3W 11:49
PROVIDERS: ADMIT Psychiatry & Neurology Psychiatry; ATTEND Psychiatry & Neurology Psychiatry
PROC: HZ42ZZZ Group Counseling for Substance Abuse Treatment, Cognitive-Behavioral (ICD-10-PCS; principal; 2017-06-17)
DX: F10.20 Alcohol dependence, uncomplicated (principal); F14.20 Cocaine dependence, uncomplicated; F17.210 Nicotine dependence, cigarettes, uncomplicated; F31.9 Bipolar disorder, unspecified; J45.909 Unspecified asthma, uncomplicated
CPT/HCPCS: 36415; 80048

== ENCOUNTER 2017-09-04 10:31 | Inpatient (IN) | payer OTHER ==
[2017-09-04 11:01] VITALS: BMI 27.3
--- NOTE | 2017-09-04 15:08 | HP ---
CIWA Score - CIWA Score Nausea/Vomitin-No Nausea/No Vomiting Muscle Tremors: 4-Moderate,w/Arms Extend Anxiety: 3 Agitation: 4-Moderately Restless Paroxysmal Sweats: 3 Orientation: 0-Oriented Tacttile Disturbances: 0-None Auditory Disturbances: 0-None Visual Disturbances: 0-None Headache: 1-Very Mild CIWA-Ar Total Score: 15 Admission ROS BHS - HPI Chief Complaint: I am here to detox off the alcohol. Allergies/Adverse Reactions: Allergies Allergy/AdvReac Type Severity Reaction Status Date / Time No Known Drug Allergies Allergy Verified 09/04/17 11:39 turkey Allergy Mild Uncoded 09/04/17 11:39 History of Present Illness: pt is a 51yr old male with a history of alcohol and cocaine dependence seeking detox for treatment. Exam Limitations: No Limitations - Ebola screening Have you traveled outside of the country in the last 21 days: No (N) Have you had contact with anyone from an Ebola affected area: No Have you been sick,other than usual withdrawal symptoms: No Do you have a fever: No - Review of Systems Constitutional: Changes in sleep EENT: reports: No Symptoms Reported Respiratory: reports: No Symptoms reported Cardiac: reports: Syncope GI: reports: Diarrhea, Poor Appetite, Poor Fluid Intake : reports: No Symptoms Reported Musculoskeletal: reports: Back Pain Integumentary: reports: Flushing, Sweating Neuro: reports: Headache, Tingling, Tremors Endocrine: reports: Excessive Sweating, Flushing, Intolerance to Cold, Intolerance to Heat Hematology: reports: No Symptoms Reported Psychiatric: reports: Judgement Intact, Mood/Affect Appropiate, Orientated x3, Agitated, Anxious Other Systems: Reviewed and Negative Patient History - Patient Medical History Hx Anemia: No Hx Asthma: Yes Hx Chronic Obstructive Pulmonary Disease (COPD): No Hx Cancer: No Hx Cardiac Disorders: No Hx Congestive Heart Failure: No Hx Hypertension: No Hx Hypercholesterolemia: No Hx Pacemaker: No HX Cerebrovascular Accident: No Hx Seizures: No Hx Dementia: No Hx Diabetes: No Hx Gastrointestinal Disorders: No Hx Liver Disease: No Hx Genitourinary Disorders: No Hx Sexually Transmitted Disorders: No Hx Renal Disease (ESRD): No Hx Thyroid Disease: No Hx Human Immunodeficiency Virus (HIV): No (negative) Hx Hepatitis C: No (negative) Hx Depression: Yes Hx Suicide Attempt: Yes (denies any S/H ideation today. ) Hx Bipolar Disorder: No Hx Schizophrenia: No - Patient Surgical History Past Surgical History: No Hx Neurologic Surgery: No Hx Cataract Extraction: No Hx Cardiac Surgery: No Hx Lung Surgery: No Hx Breast Surgery: No Hx Breast Biopsy: No Hx Abdominal Surgery: No Hx Appendectomy: No Hx Cholecystectomy: No Hx Genitourinary Surgery: No Hx Section: No Hx Orthopedic Surgery: No Anesthesia Reaction: No - PPD History Previous Implant?: Yes Documented Results: Negative w/proof Implanted On Prior [facility] Admission?: Yes Date: 06/15/17 Results: 0 mm PPD to be Administered?: No - Reproductive History Patient is a Female of Child Bearing Age (11 -55 yrs old): No - Smoking Cessation Smoking history: Former smoker Have you smoked in the past 12 months: No Aproximately how many cigarettes per day: 10 If you are a former smoker, when did you quit?: 09/26 Cigars Per Day: 0 Hx Chewing Tobacco Use: No Initiated information on smoking cessation: No - Substance & Tx. History Hx Alcohol Use: Yes Hx Substance Use: Yes Substance Use Type: Alcohol, Cocaine Hx Substance Use Treatment: Yes ([facility] detox 06/2017) - Substances Abused Alcohol Route: Oral Frequency: Daily Amount used: vodka(2 pints)/beer(2-6pks-12 oz cans) Age of first use: 25 Date of Last Use: 09/04/17 Cocaine Route: Inhalation Frequency: Daily Amount used: $100 Age of first use: 30 Date of Last Use: 09/04/17 Family Disease History - Family Disease History Family Disease History: [place]: Father (prostate ca 1991 ) Admission Physical Exam [facility] - Vital Signs Vital Signs: Vital Signs - 24 hr 09/04/17 10:58 Temperature 97.3 F L Pulse Rate 86 Respiratory 20 Rate Blood Pressure 117/80 - Physical General Appearance: Yes: Appropriately Dressed, Moderate Distress, Tremorous, Irritable, Sweating, Anxious HEENTM: Yes: Hearing grossly Normal, Normal Voice, Nasal Congestion, Rhinorrhea Respiratory: Yes: Lungs Clear, Normal Breath Sounds, No Respiratory Distress Neck: Yes: No masses,lesions,Nodules Breast: Yes: Within Normal Limits Cardiology: Yes: Regular Rhythm, Regular Rate, S1, S2 Abdominal: Yes: Normal Bowel Sounds, Non Tender, Soft Genitourinary: Yes: Within Normal Limits Back: Yes: Normal Inspection Musculoskeletal: Yes: full range of Motion, Gait Steady, Back pain Extremities: Yes: Normal Capillary Refill, Normal Inspection, Tremors Neurological: Yes: Fully Oriented, Alert, Normal Response Integumentary: Yes: Normal Color, Diaphoresis Lymphatic: Yes: Within Normal Limits - Diagnostic (1) Major depressive disorder Current Visit: No Status: Active (2) Insomnia Current Visit: No Status: Acute (3) Weight loss Current Visit: No Status: Acute (4) Alcohol dependence with uncomplicated withdrawal Current Visit: Yes Status: Chronic (5) Asthma Current Visit: Yes Status: Chronic Qualifiers: Asthma severity: mild (6) Bipolar disorder Current Visit: No Status: Chronic (7) Cocaine dependence Current Visit: Yes Status: Chronic Qualifiers: Substance use status: uncomplicated Qualified Code(s): F14.20 - Cocaine dependence, uncomplicated (8) Nicotine dependence Current Visit: Yes Status: Chronic Qualifiers: Nicotine product type: cigarettes Substance use status: uncomplicated Qualified Code(s): F17.210 - Nicotine dependence, cigarettes, uncomplicated Cleared for Admission [facility] - Detox or Rehab [facility] Level of Care: Medically Managed Detox Regimen/Protocol: Librium [facility] Breath Alcohol Content Breath Alcohol Content: 0.186 Urine Drug Screen - Results Drug Screen Negative: No Urine Drug Screen Results: DORA-Cocaine
[2017-09-04] MEDS ORDERED: MAGNESIUM HYDROX 2400MG/30ML ORAL SUSPENSION 30 ML CUP PO PRN (15:10)
[2017-09-04] MEDS ORDERED: guaiFENesin/D-METHORPHAN HB 10 ML UNIT-DOSE CUPS PO PRN (15:10)
[2017-09-04] MEDS ORDERED: P-EPHED 60MG/TRIPROLIDI 2.5MG TABLET PO PRN (15:10)
[2017-09-04] MEDS ORDERED: MENTHOL/PHENOL 1 EACH UD MM PRN (15:10)
[2017-09-04] MEDS ORDERED: chlordiazePOXIDE HCL 25 MG CAPSULE PO ONE (15:10)
[2017-09-04] MEDS ORDERED: IBUPROFEN 400 MG TABLET (FP) PO PRN (15:10)
[2017-09-04] MEDS ORDERED: chlordiazePOXIDE HCL 25 MG CAPSULE PO PRN (15:10)
[2017-09-04] MEDS ORDERED: ACETAMINOPHEN 325 MG TABLET (FP) PO PRN (15:10)
[2017-09-04] MEDS ORDERED: MAG HYDROX/AL HYDROX/SIMETH 30 ML UNIT-DOSE CUP PO PRN (15:10)
[2017-09-04] MEDS ORDERED: hydrOXYzine PAMOATE 50 MG CAPSULE (FP) PO PRN (15:10)
[2017-09-04] MEDS ORDERED: MAGNESIUM CITRATE 300 ML BOTTLE PO PRN (15:10)
[2017-09-04] MEDS ORDERED: LOPERAMIDE HCL 2 MG CAPSULE PO PRN (15:10)
[2017-09-04] MEDS ORDERED: ALBUTEROL SO4 18 GM HFA INHALER IH PRN (15:12)
--- NOTE | 2017-09-04 17:16 | CONSULT ---
[facility] Psychiatric Consult - Data Date of interview: 09/04/17 Admission source: [facility] Identifying data: Pt. is a 51 year old single male, with no kids, unemployed, with pending SSI. This is one of patient's multiple admission to [facility]. Pt. admitted to for alcohol and cocaine dependence. Substance Abuse History: Following information confirmed with Mr. Scott: Smoking Cessation. Smoking history: Former smoker. Have you smoked in the past 12 months: No. Aproximately how many cigarettes per day: 10. If you are a former smoker, when did you quit?: 09/26. - Substance & Tx. History. Hx Alcohol Use: Yes. Hx Substance Use: Yes. Substance Use Type: Alcohol, Cocaine. Hx Substance Use Treatment: Yes ([facility] detox 06/2017). Alcohol : Route: Oral Frequency: Daily. Amount used: vodka(2 pints)/beer(2-6pks-12 oz cans). Age of first use: 25. Date of Last Use: 09/04/17. Cocaine: Route: Inhalation Frequency: Daily. Amount used: $100 Age of first use: 30. Date of Last Use: 09/04/17 Medical History: Asthma Psychiatric History: Pt. reports an extensive history of past psychiatric hospitalization consisting of approximately 15 hospitalizations. Patient's most recent hospitalization was at [facility] in [facility] of 2016. Pt. states he was admitted for depression, anxiety and command auditory hallucinations of the voices telling him to hurt himself. Pt.reports three suicide attempts in 2016 which consisted of jumping off the roof, jumping in front of a train and cutting self but states he was stopped by a friend during all encounters. Pt. is currently seeing a psychiatrist at the [facility] in [place]. Patient's current medication are Lexapro 20mg qam, Zyprexa 20mg qhs, and trazodone 100mg qhs. Physical/Sexual Abuse/Trauma History: Denies. Mental Status Exam - Mental Status Exam Alert and Oriented to: Time, Person Cognitive Function: Good Patient Appearance: Well Groomed Mood: Hopeful Affect: Appropriate Patient Behavior: Appropriate, Cooperative Speech Pattern: Clear, Appropriate Voice Loudness: Normal Thought Process: Goal Oriented Thought Disorder: Not Present Hallucinations: Denies Suicidal Ideation: Denies Homicidal Ideation: Denies Insight/Judgement: Poor Sleep: Poorly Appetite: Fair Muscle strength/Tone: Normal Gait/Station: Normal Psychiatric Findings - Problem List ([place] 1, 2,3) (1) Alcohol dependence with uncomplicated withdrawal Current Visit: Yes Status: Acute (2) Cocaine dependence Current Visit: Yes Status: Acute Qualifiers: Substance use status: uncomplicated Qualified Code(s): F14.20 - Cocaine dependence, uncomplicated (3) Nicotine dependence Current Visit: Yes Status: Chronic Qualifiers: Nicotine product type: cigarettes Substance use status: uncomplicated Qualified Code(s): F17.210 - Nicotine dependence, cigarettes, uncomplicated (4) Insomnia Current Visit: Yes Status: Acute (5) Bipolar disorder Current Visit: Yes Status: Chronic (6) Major depressive disorder Current Visit: Yes Status: Active - Initial Treatment Plan Initial Treatment Plan: Psychoeducation reviewed. Detox in progress. [employer] to resume patient's medication. Lexapro 20mg po daily + zyprexa 20mg po hs+ trazodone 100mg po hs. Pharmacy claims reviewed. Benefits and side effects discussed. Pt. made aware of the risk for metabolic syndrome,suicidal ideation, and priapism. Verbal consent given. Pt. agreeable with plan. Will continue to monitor patient.
[2017-09-04] MEDS: chlordiazePOXIDE HCL 25 MG CAPSULE PO SCH ×2 (17:23→22:11)
[2017-09-04] MEDS: THIAMINE HCL 100 MG TABLET (FP) PO SCH (22:11)
[2017-09-04] MEDS: traZODone HCL 100 MG TABLET (FP) PO SCH (22:11)
[2017-09-04] MEDS: OLANZapine 10 MG TABLET PO SCH (22:11)
[2017-09-05 01:59] LABS: URINE APPEARANCE CLEAR; URINE BILIRUBIN NEGATIVE (NEGATIVE); URINE BLOOD NEGATIVE (NEGATIVE); URINE COLOR COLORLESS; URINE GLUCOSE (UA) NEGATIVE (NEGATIVE); URINE KETONE NEGATIVE (NEGATIVE); URINE LEUK ESTERASE NEGATIVE (NEGATIVE); URINE NITRITE NEGATIVE (NEGATIVE); URINE PROTEIN NEGATIVE (NEGATIVE); URINE UROBILINOGEN NEGATIVE mg/dL (0.2-1.0)
[2017-09-05] MEDS: chlordiazePOXIDE HCL 25 MG CAPSULE PO SCH ×4 (05:09→22:19)
[2017-09-05 08:57] LABS: URINE LEUK ESTERASE Negative (NEGATIVE)
[2017-09-05 09:24] LABS: HIV 1 & 2 AB NEGATIVE; HIV 1 AGp24 NEGATIVE
[2017-09-05 10:09] LABS: MCH 31.4 pg (25.7-33.7); MCHC 32.8 g/dl (32.0-35.9); MEAN CELL VOLUME 95.6 fl (80-96); MEAN PLT VOLUME 8.9 fl (7.5-11.1); PLATELET COUNT 243 K/MM3 (134-434); RDW 13.4 % (11.9-15.9); WHITE BLOOD COUNT 8.8 K/mm3 (4.0-10.0)
[2017-09-05] MEDS: PRENATAL VITAMINS W/ FOLIC ACID TABLET (FP) PO SCH (10:31)
[2017-09-05] MEDS: ESCITALOPRAM OXALATE 20 MG TABLET (FP) PO SCH (10:31)
[2017-09-05] MEDS: NICOTINE 21 MG/24 HOURS TOPICAL PATCH TD SCH (10:32)
--- NOTE | 2017-09-05 10:47 | PN ---
S CIWA - CIWA Score Nausea/Vomitin-No Nausea/No Vomiting Muscle Tremors: 4-Moderate,w/Arms Extend Anxiety: 3 Agitation: 3 Paroxysmal Sweats: 3 Orientation: 0-Oriented Tacttile Disturbances: 0-None Auditory Disturbances: 0-None Visual Disturbances: 0-None Headache: 0-None Present CIWA-Ar Total Score: 13 BHS Progress Note (SOAP) Subjective: sweats agitation body aches mild shakes Objective: 09/05/17 10:46 Vital Signs Temperature 97.2 F L 09/05/17 09:57 Pulse Rate 105 H 09/05/17 09:57 Respiratory Rate 20 09/05/17 09:57 Blood Pressure 108/73 09/05/17 09:57 O2 Sat by Pulse Oximetry (%) Laboratory Tests 09/04/17 09/04/17 09/05/17 12:15 15:19 06:00 WBC 8.8 D RBC 4.81 Hgb 15.1 Hct 46.0 MCV 95.6 MCH 31.4 MCHC 32.8 RDW 13.4 Plt Count 243 D MPV 8.9 Sodium Potassium Chloride Urine Color Colorless Urine Appearance Clear Urine pH 5.0 Ur Specific [place] 1.002 Urine Protein Negative Urine Glucose (UA) Negative Urine Ketones Negative Urine Blood Negative Urine Nitrite Negative Urine Bilirubin Negative Urine Urobilinogen Negative Ur Leukocyte Esterase Negative HIV 1&2 Antibody Screen Negative HIV P24 Antigen Negative 09/05/17 06:00 WBC RBC Hgb Hct MCV MCH MCHC RDW Plt Count MPV Sodium 140 Potassium 4.2 Chloride 105 Urine Color Urine Appearance Urine pH Ur Specific [place] Urine Protein Urine Glucose (UA) Urine Ketones Urine Blood Urine Nitrite Urine Bilirubin Urine Urobilinogen Ur Leukocyte Esterase HIV 1&2 Antibody Screen HIV P24 Antigen rest of labs pending aaox3 ambulating no acute distress Assessment: 09/05/17 10:47 withdrawal sx Plan: continue detox increase fluids
[2017-09-05 10:54] LABS: ALBUMIN 4.3 g/dl (3.4-5.0); ALK PHOS 84 U/L (45-117); ANION GAP 14 (8-16); BILIRUBIN,TOTAL 0.8 mg/dL (0.2-1.0); CALCIUM 8.9 mg/dL (8.5-10.1); CO2 21 mmol/L (21-32); CREATININE 0.9 mg/dL (0.7-1.3); GLUCOSE,RANDOM 80 mg/dL (74-106); SGOT/AST 20 U/L (15-37); SGPT/ALT 27 U/L (12-78)
--- NOTE | 2017-09-05 14:02 | EKG ---
Test Reason : Blood Pressure : / mmHG Vent. Rate : 086 BPM Atrial Rate : 086 BPM P-R Int : 158 ms QRS Dur : 082 ms QT Int : 368 ms P-R-T Axes : 045 045 057 degrees QTc Int : 440 ms NORMAL SINUS RHYTHM CANNOT RULE OUT ANTERIOR INFARCT , AGE UNDETERMINED ABNORMAL ECG WHEN COMPARED WITH ECG OF 13-JUN-2017 14:23, NO SIGNIFICANT CHANGE WAS FOUND Confirmed by GABBY CHAN MD ([id number]) on 09/05/2017 2:01:56 PM Referred By: Confirmed By:GABBY CHAN MD
[2017-09-05] MEDS: traZODone HCL 100 MG TABLET (FP) PO SCH (22:19)
[2017-09-05] MEDS: THIAMINE HCL 100 MG TABLET (FP) PO SCH (22:19)
[2017-09-05] MEDS: OLANZapine 10 MG TABLET PO SCH (22:19)
[2017-09-06] MEDS: chlordiazePOXIDE HCL 25 MG CAPSULE PO SCH ×2 (05:10→10:20)
[2017-09-06] MEDS: NICOTINE 21 MG/24 HOURS TOPICAL PATCH TD SCH (10:21)
[2017-09-06] MEDS: ESCITALOPRAM OXALATE 20 MG TABLET (FP) PO SCH (10:21)
[2017-09-06] MEDS: PRENATAL VITAMINS W/ FOLIC ACID TABLET (FP) PO SCH (10:21)
--- NOTE | 2017-09-06 17:08 | PN ---
S CIWA - CIWA Score Nausea/Vomitin-No Nausea/No Vomiting Muscle Tremors: 3 Anxiety: 4-Mod. Anxious/Guarded Agitation: 3 Paroxysmal Sweats: 3 Orientation: 0-Oriented Tacttile Disturbances: 0-None Auditory Disturbances: 0-None Visual Disturbances: 0-None Headache: 0-None Present CIWA-Ar Total Score: 13 BHS Progress Note (SOAP) Subjective: Sweating,interrupted sleep,restless,tremors,anxiety Objective: 09/06/17 17:07 Vital Signs - 8 hr 09/06/17 09/06/17 10:00 15:27 Temperature 96.0 F L 97.7 F Pulse Rate 90 93 H Respiratory 18 20 Rate Blood Pressure 142/86 110/82 Laboratory Tests 09/04/17 09/04/17 09/05/17 12:15 15:19 06:00 WBC 8.8 D RBC 4.81 Hgb 15.1 Hct 46.0 MCV 95.6 MCH 31.4 MCHC 32.8 RDW 13.4 Plt Count 243 D MPV 8.9 Sodium Potassium Chloride Carbon Dioxide Anion Gap BUN Creatinine Creat Clearance w eGFR Random Glucose Calcium Total Bilirubin AST ALT Alkaline Phosphatase Total Protein Albumin Urine Color Colorless Urine Appearance Clear Urine pH 5.0 Ur Specific [place] 1.002 Urine Protein Negative Urine Glucose (UA) Negative Urine Ketones Negative Urine Blood Negative Urine Nitrite Negative Urine Bilirubin Negative Urine Urobilinogen Negative Ur Leukocyte Esterase Negative RPR Titer HIV 1&2 Antibody Screen Negative HIV P24 Antigen Negative 09/05/17 09/05/17 06:00 06:00 WBC RBC Hgb Hct MCV MCH MCHC RDW Plt Count MPV Sodium 140 Potassium 4.2 Chloride 105 Carbon Dioxide 21 D Anion Gap 14 BUN 11 Creatinine 0.9 Creat Clearance w eGFR > 60 Random Glucose 80 D Calcium 8.9 Total Bilirubin 0.8 D AST 20 ALT 27 D Alkaline Phosphatase 84 D Total Protein 8.0 Albumin 4.3 Urine Color Urine Appearance Urine pH Ur Specific [place] Urine Protein Urine Glucose (UA) Urine Ketones Urine Blood Urine Nitrite Urine Bilirubin Urine Urobilinogen Ur Leukocyte Esterase RPR Titer Nonreactive HIV 1&2 Antibody Screen HIV P24 Antigen labs noted Assessment: 09/06/17 17:07 Withdrawal sx. Plan: Continue detox
[2017-09-06] MEDS: chlordiazePOXIDE 5 MG CAPSULE PO SCH ×2 (17:39→22:22)
[2017-09-06] MEDS: OLANZapine 10 MG TABLET PO SCH (22:22)
[2017-09-06] MEDS: traZODone HCL 100 MG TABLET (FP) PO SCH (22:22)
[2017-09-06] MEDS: THIAMINE HCL 100 MG TABLET (FP) PO SCH (22:22)
[2017-09-07] MEDS: chlordiazePOXIDE 5 MG CAPSULE PO SCH ×2 (05:05→10:17)
--- NOTE | 2017-09-07 10:05 | PN ---
BHS Progress Note (SOAP) Subjective: Sweating,interrupted sleep,restless Objective: 09/07/17 10:05 Vital Signs - 8 hr 09/07/17 06:51 Temperature 98.1 F Pulse Rate 75 Respiratory 18 Rate Blood Pressure 136/81 Laboratory Tests 09/04/17 09/04/17 09/05/17 12:15 15:19 06:00 WBC 8.8 D RBC 4.81 Hgb 15.1 Hct 46.0 MCV 95.6 MCH 31.4 MCHC 32.8 RDW 13.4 Plt Count 243 D MPV 8.9 Sodium Potassium Chloride Carbon Dioxide Anion Gap BUN Creatinine Creat Clearance w eGFR Random Glucose Calcium Total Bilirubin AST ALT Alkaline Phosphatase Total Protein Albumin Urine Color Colorless Urine Appearance Clear Urine pH 5.0 Ur Specific [place] 1.002 Urine Protein Negative Urine Glucose (UA) Negative Urine Ketones Negative Urine Blood Negative Urine Nitrite Negative Urine Bilirubin Negative Urine Urobilinogen Negative Ur Leukocyte Esterase Negative RPR Titer HIV 1&2 Antibody Screen Negative HIV P24 Antigen Negative 09/05/17 09/05/17 06:00 06:00 WBC RBC Hgb Hct MCV MCH MCHC RDW Plt Count MPV Sodium 140 Potassium 4.2 Chloride 105 Carbon Dioxide 21 D Anion Gap 14 BUN 11 Creatinine 0.9 Creat Clearance w eGFR > 60 Random Glucose 80 D Calcium 8.9 Total Bilirubin 0.8 D AST 20 ALT 27 D Alkaline Phosphatase 84 D Total Protein 8.0 Albumin 4.3 Urine Color Urine Appearance Urine pH Ur Specific [place] Urine Protein Urine Glucose (UA) Urine Ketones Urine Blood Urine Nitrite Urine Bilirubin Urine Urobilinogen Ur Leukocyte Esterase RPR Titer Nonreactive HIV 1&2 Antibody Screen HIV P24 Antigen labs noted Assessment: 09/07/17 10:05 Withdrawal sx. Plan: Continue detox
[2017-09-07] MEDS: PRENATAL VITAMINS W/ FOLIC ACID TABLET (FP) PO SCH (10:16)
[2017-09-07] MEDS: ESCITALOPRAM OXALATE 20 MG TABLET (FP) PO SCH (10:16)
[2017-09-07] MEDS: NICOTINE 21 MG/24 HOURS TOPICAL PATCH TD SCH (13:25)
[2017-09-07] MEDS: chlordiazePOXIDE HCL 10 MG CAPSULE PO SCH ×2 (17:22→22:13)
[2017-09-07] MEDS: OLANZapine 10 MG TABLET PO SCH (22:13)
[2017-09-07] MEDS: THIAMINE HCL 100 MG TABLET (FP) PO SCH (22:13)
[2017-09-07] MEDS: traZODone HCL 100 MG TABLET (FP) PO SCH (22:13)
[2017-09-08] MEDS: chlordiazePOXIDE HCL 10 MG CAPSULE PO SCH ×2 (05:40→10:48)
[2017-09-08] MEDS: ESCITALOPRAM OXALATE 20 MG TABLET (FP) PO SCH (10:48)
[2017-09-08] MEDS: PRENATAL VITAMINS W/ FOLIC ACID TABLET (FP) PO SCH (10:48)
[2017-09-08] MEDS: NICOTINE 21 MG/24 HOURS TOPICAL PATCH TD SCH (10:50)
--- NOTE | 2017-09-08 13:26 | PN ---
BHS Progress Note (SOAP) Subjective: interrupted sleep,lbp, Objective: 09/08/17 13:24 Vital Signs Temperature 97.2 F L 09/08/17 09:29 Pulse Rate 82 09/08/17 09:29 Respiratory Rate 18 09/08/17 09:29 Blood Pressure 131/81 09/08/17 09:29 O2 Sat by Pulse Oximetry (%) Laboratory Tests 09/04/17 09/04/17 09/05/17 12:15 15:19 06:00 WBC 8.8 D RBC 4.81 Hgb 15.1 Hct 46.0 MCV 95.6 MCH 31.4 MCHC 32.8 RDW 13.4 Plt Count 243 D MPV 8.9 Sodium Potassium Chloride Carbon Dioxide Anion Gap BUN Creatinine Creat Clearance w eGFR Random Glucose Calcium Total Bilirubin AST ALT Alkaline Phosphatase Total Protein Albumin Urine Color Colorless Urine Appearance Clear Urine pH 5.0 Ur Specific [place] 1.002 Urine Protein Negative Urine Glucose (UA) Negative Urine Ketones Negative Urine Blood Negative Urine Nitrite Negative Urine Bilirubin Negative Urine Urobilinogen Negative Ur Leukocyte Esterase Negative RPR Titer HIV 1&2 Antibody Screen Negative HIV P24 Antigen Negative 09/05/17 09/05/17 06:00 06:00 WBC RBC Hgb Hct MCV MCH MCHC RDW Plt Count MPV Sodium 140 Potassium 4.2 Chloride 105 Carbon Dioxide 21 D Anion Gap 14 BUN 11 Creatinine 0.9 Creat Clearance w eGFR > 60 Random Glucose 80 D Calcium 8.9 Total Bilirubin 0.8 D AST 20 ALT 27 D Alkaline Phosphatase 84 D Total Protein 8.0 Albumin 4.3 Urine Color Urine Appearance Urine pH Ur Specific [place] Urine Protein Urine Glucose (UA) Urine Ketones Urine Blood Urine Nitrite Urine Bilirubin Urine Urobilinogen Ur Leukocyte Esterase RPR Titer Nonreactive HIV 1&2 Antibody Screen HIV P24 Antigen pt aox3 in nad ambulating Assessment: 09/08/17 13:25 withdrawal sx's Plan: cont. detox increase fluids motrin prn d/c in am
[2017-09-08] MEDS: THIAMINE HCL 100 MG TABLET (FP) PO SCH (22:16)
[2017-09-08] MEDS: traZODone HCL 100 MG TABLET (FP) PO SCH (22:17)
[2017-09-08] MEDS: OLANZapine 10 MG TABLET PO SCH (22:17)
[2017-09-09] MEDS: NICOTINE 21 MG/24 HOURS TOPICAL PATCH TD SCH (10:26)
[2017-09-09] MEDS: PRENATAL VITAMINS W/ FOLIC ACID TABLET (FP) PO SCH (10:26)
[2017-09-09] MEDS: ESCITALOPRAM OXALATE 20 MG TABLET (FP) PO SCH (10:27)
[2017-09-09 11:08] VITALS: BP 111/77; PULSE 90; TEMP 97.3
--- NOTE | 2017-09-09 13:17 | DS ---
[facility] Detox Discharge Summary Admission Date: 09/04/17 - History Present History: Alcohol Dependence, Cocaine Dependence Pertinent Past History: Asthma - Physical Exam Results Vital Signs: Vital Signs Temperature 97.3 F L 09/09/17 10:00 Pulse Rate 90 09/09/17 10:00 Respiratory Rate 20 09/09/17 10:00 Blood Pressure 111/77 09/09/17 10:00 O2 Sat by Pulse Oximetry (%) Pertinent Admission Physical Exam Findings: Withdrawal symptoms Laboratory Tests 09/04/17 09/04/17 09/05/17 12:15 15:19 06:00 WBC 8.8 D RBC 4.81 Hgb 15.1 Hct 46.0 MCV 95.6 MCH 31.4 MCHC 32.8 RDW 13.4 Plt Count 243 D MPV 8.9 Sodium Potassium Chloride Carbon Dioxide Anion Gap BUN Creatinine Creat Clearance w eGFR Random Glucose Calcium Total Bilirubin AST ALT Alkaline Phosphatase Total Protein Albumin Urine Color Colorless Urine Appearance Clear Urine pH 5.0 Ur Specific [place] 1.002 Urine Protein Negative Urine Glucose (UA) Negative Urine Ketones Negative Urine Blood Negative Urine Nitrite Negative Urine Bilirubin Negative Urine Urobilinogen Negative Ur Leukocyte Esterase Negative RPR Titer HIV 1&2 Antibody Screen Negative HIV P24 Antigen Negative 09/05/17 09/05/17 06:00 06:00 WBC RBC Hgb Hct MCV MCH MCHC RDW Plt Count MPV Sodium 140 Potassium 4.2 Chloride 105 Carbon Dioxide 21 D Anion Gap 14 BUN 11 Creatinine 0.9 Creat Clearance w eGFR > 60 Random Glucose 80 D Calcium 8.9 Total Bilirubin 0.8 D AST 20 ALT 27 D Alkaline Phosphatase 84 D Total Protein 8.0 Albumin 4.3 Urine Color Urine Appearance Urine pH Ur Specific [place] Urine Protein Urine Glucose (UA) Urine Ketones Urine Blood Urine Nitrite Urine Bilirubin Urine Urobilinogen Ur Leukocyte Esterase RPR Titer Nonreactive HIV 1&2 Antibody Screen HIV P24 Antigen Labs noted - Treatment Hospital Course: Detox Protocol Followed, Detoxed Safely, Responded well, Discharged Condition Good - Medication Discharge Medications: Ambulatory Orders Albuterol Sulfate Inhaler - [Ventolin HFA Inhaler -] 2 inh IH Q4H PRN 03/24/12 Escitalopram Oxalate [Lexapro -] 20 mg PO DAILY 06/17/17 Olanzapine [Zyprexa] 20 mg PO HS 06/17/17 Trazodone HCl 100 mg PO HS 06/17/17 - Diagnosis (1) Major depressive disorder Status: Chronic (2) Insomnia Status: Acute (3) Alcohol dependence with uncomplicated withdrawal Status: Acute (4) Asthma Status: Chronic Qualifiers: Asthma severity: mild Asthma complication type: unspecified (5) Bipolar disorder Status: Chronic Qualifiers: Most recent bipolar episode type: most recent episode unspecified type (6) Cocaine dependence Status: Chronic Qualifiers: Substance use status: uncomplicated Qualified Code(s): F14.20 - Cocaine dependence, uncomplicated (7) Nicotine dependence Status: Chronic Qualifiers: Nicotine product type: cigarettes Substance use status: uncomplicated Qualified Code(s): F17.210 - Nicotine dependence, cigarettes, uncomplicated - AMA Did Patient Leave Against Medical Advice: No (F/U with PCP within 1 week)
== END 2017-09-09 12:05 | disposition other institution (70) | DRG 774 ==
LOC: YASAS 10:31 → Y6N 11:58
PROVIDERS: ADMIT Internal Medicine; ATTEND Internal Medicine
PROC: HZ2ZZZZ Detoxification Services for Substance Abuse Treatment (ICD-10-PCS; principal; 2017-09-04)
DX: F10.230 Alcohol dependence with withdrawal, uncomplicated (principal); F14.20 Cocaine dependence, uncomplicated; F17.210 Nicotine dependence, cigarettes, uncomplicated; F31.9 Bipolar disorder, unspecified; G47.00 Insomnia, unspecified; J45.909 Unspecified asthma, uncomplicated; Z91.5 Personal history of self-harm
CPT/HCPCS: 36415; 80053; 81003; 85027; 86593; 87389; 93005; 93010

== ENCOUNTER 2017-09-09 12:23 | Inpatient (IN) | payer OTHER ==
[2017-09-09] MEDS ORDERED: ACETAMINOPHEN 325 MG TABLET (FP) PO PRN (12:28)
[2017-09-09] MEDS ORDERED: MAGNESIUM CITRATE 300 ML BOTTLE PO PRN (12:28)
[2017-09-09] MEDS ORDERED: P-EPHED 60MG/TRIPROLIDI 2.5MG TABLET PO PRN (12:28)
[2017-09-09] MEDS ORDERED: MAG HYDROX/AL HYDROX/SIMETH 30 ML UNIT-DOSE CUP PO PRN (12:28)
[2017-09-09] MEDS ORDERED: LOPERAMIDE HCL 2 MG CAPSULE PO PRN (12:28)
[2017-09-09] MEDS ORDERED: MENTHOL/PHENOL 1 EACH UD MM PRN (12:28)
[2017-09-09] MEDS ORDERED: MAGNESIUM HYDROX 2400MG/30ML ORAL SUSPENSION 30 ML CUP PO PRN (12:28)
[2017-09-09] MEDS ORDERED: IBUPROFEN 400 MG TABLET (FP) PO PRN (12:28)
[2017-09-09] MEDS ORDERED: guaiFENesin/D-METHORPHAN HB 10 ML UNIT-DOSE CUPS PO PRN (12:28)
[2017-09-09] MEDS ORDERED: ALBUTEROL SO4 18 GM HFA INHALER IH PRN (12:36)
--- NOTE | 2017-09-09 13:49 | HP ---
Psychiatrist Admission - Data Date of interview: 09/09/17 Admission source: Identifying data: This is the third inpatient rehanbilitation admission for this 51 year old AA single without children male, who is unemployed and domiciled. Medical History: Bronchial astma. Psychiatric History: Patient reports first psychiatric treatment in 1988 was admitted to [facility] to address depressed mood and auditory hallucinations, reports several subsequent psychiatric hospitalizations aroubd 10-15 with most recent at [facility] in 08/31, reports was depressed and had command hallucinations "voices telling to hurt myself". Reports he ewas diagnosed as bipolar, depression and anxiety, he sees psychiatrist at [facility] in [facility] and currently on Zyprexa 20 mg po hs and Lexapro 20 mg po daily. He continued medications while in detox at [facility]. Physical/Sexual Abuse/Trauma History: Patient denies. Allergies/Adverse Reactions: Allergies Allergy/AdvReac Type Severity Reaction Status Date / Time No Known Drug Allergies Allergy Verified 09/04/17 11:39 turkey Allergy Mild Uncoded 09/04/17 11:39 Date of last physical exam: 09/04/17 Concur with the findings of this exam: Yes - Substance Abuse/Tx History Hx Alcohol Use: Yes (daily 2 pints of vodka, 2-6 packs 12 oz of beer ) Hx Substance Use: Yes Substance Use Type: Cocaine ($100 daily use) Hx Substance Use Treatment: Yes ([facility] x 2) Mental Status Exam - Mental Status Exam Alert and Oriented to: Time, Place, Person Cognitive Function: Fair Patient Appearance: Well Groomed Mood: Hopeful Affect: Appropriate, Mood Congruent Patient Behavior: Appropriate, Cooperative Speech Pattern: Clear, Appropriate Voice Loudness: Normal Thought Process: Intact, Goal Oriented Thought Disorder: Not Present Hallucinations: Denies, Auditory (3 days ago "mumbling") Suicidal Ideation: Denies Homicidal Ideation: Denies Insight/Judgement: Fair Sleep: Fair Appetite: Poor, Weight loss Muscle strength/Tone: Normal Gait/Station: Normal Psychiatric Findings - Problem List ([place] 1, 2,3) (1) Alcohol dependence Current Visit: Yes Status: Acute (2) Cocaine dependence Current Visit: Yes Status: Chronic Qualifiers: (3) Bipolar disorder Current Visit: No Status: Chronic - Initial Treatment Plan Initial Treatment Plan: to continue Zyprexa and Lexapro, monitor progress as needed.
--- NOTE | 2017-09-09 16:36 | HP ---
[facility] Rehab Assess/Revision - Admission History Admitted to Rehab from: [facility] Date of Admission to Rehab: 09/09/17 - Vital signs Vital Signs: Vital Signs Period Temp Pulse Resp BP Sys/[place] Pulse Ox Last 24 Hr 97.6 F 100 18 120/79 - Findings Detox History & Physical reviewed: Yes Concur with findings: Yes Comments/Additional Findings: transferred from detox to rehab admission as per protocol
--- NOTE | 2017-09-09 16:38 | HP ---
[facility] Rehab Assess/Revision - Vital signs Vital Signs: Vital Signs Period Temp Pulse Resp BP Sys/[place] Pulse Ox Last 24 Hr 97.6 F 100 18 120/79 Inpatient Rehab Admission - Initial Determination Are CD services needed?: Yes Free of communicable disease: Yes Not in need of hospitalization: Yes - Rehab Admission Criteria Previous failed treatment: Yes Poor recovery environment: Yes Comorbidities: Yes Lacks judgement: No Patient is meeting Inpatient Rehab admission criteria:: Yes
[2017-09-09] MEDS: OLANZapine 10 MG TABLET PO SCH (21:33)
[2017-09-09] MEDS: THIAMINE HCL 100 MG TABLET (FP) PO SCH (21:33)
[2017-09-09] MEDS: traZODone HCL 100 MG TABLET (FP) PO SCH (21:33)
[2017-09-10] MEDS: PRENATAL VITAMINS W/ FOLIC ACID TABLET (FP) PO SCH (10:10)
[2017-09-10] MEDS: ESCITALOPRAM OXALATE 20 MG TABLET (FP) PO SCH (10:10)
[2017-09-10] MEDS: traZODone HCL 100 MG TABLET (FP) PO SCH (21:26)
[2017-09-10] MEDS: THIAMINE HCL 100 MG TABLET (FP) PO SCH (21:26)
[2017-09-10] MEDS: OLANZapine 10 MG TABLET PO SCH (21:26)
[2017-09-11] MEDS: PRENATAL VITAMINS W/ FOLIC ACID TABLET (FP) PO SCH (10:47)
[2017-09-11] MEDS: ESCITALOPRAM OXALATE 20 MG TABLET (FP) PO SCH (10:47)
[2017-09-11] MEDS: THIAMINE HCL 100 MG TABLET (FP) PO SCH (21:26)
[2017-09-11] MEDS: OLANZapine 10 MG TABLET PO SCH (21:27)
[2017-09-11] MEDS: traZODone HCL 100 MG TABLET (FP) PO SCH (21:27)
[2017-09-12 07:01] VITALS: BP 136/93; PULSE 84; TEMP 98
[2017-09-12] MEDS: ESCITALOPRAM OXALATE 20 MG TABLET (FP) PO SCH (09:24)
[2017-09-12] MEDS: PRENATAL VITAMINS W/ FOLIC ACID TABLET (FP) PO SCH (09:24)
--- NOTE | 2017-09-12 11:36 | PN ---
[facility] Progress Note Note: patient left treatment AMA stated " I have to go to court today", he refused prescriptions for current medications stating that " I have all my meds at home ".
== END 2017-09-12 09:25 | disposition left against medical advice (07) | DRG 770 ==
LOC: YASAS 12:23 → Y5N 12:24
PROVIDERS: ADMIT Psychiatry & Neurology Psychiatry; ATTEND Psychiatry & Neurology Psychiatry
PROC: HZ42ZZZ Group Counseling for Substance Abuse Treatment, Cognitive-Behavioral (ICD-10-PCS; principal; 2017-09-09)
DX: F10.20 Alcohol dependence, uncomplicated (principal); F14.20 Cocaine dependence, uncomplicated; F31.9 Bipolar disorder, unspecified

== ENCOUNTER 2018-08-28 10:27 | Inpatient (IN) | payer OTHER ==
[2018-08-28 11:01] VITALS: BMI 22.8
--- NOTE | 2018-08-28 11:53 | HP ---
CIWA Score Nausea/Vomitin Muscle Tremors: None Anxiety: 3 Agitation: 1-Slight > Activity Paroxysmal Sweats: 2 Orientation: 0-Oriented Tacttile Disturbances: 0-None Auditory Disturbances: 0-None Visual Disturbances: 0-None Headache: 0-None Present CIWA-Ar Total Score: 8 - Admission Criteria OASAS Guidelines: Admission for Medically Managed Detox: Requires at least one of the followin. CIWA greater than 12 2. Seizures within the past 24 hours 3. Delirium tremens within the past 24 hours 4. Hallucinations within the past 24 hours 5. Acute intervention needed for co occurring medical disorder 6. Acute intervention needed for co occurring psychiatric disorder 7. Severe withdrawal that cannot be handled at a lower level of care (continued vomiting, continued diarrhea, abnormal vital signs) requiring intravenous medication and/or fluids 8. Admission ROS S - HPI Allergies/Adverse Reactions: Allergies Allergy/AdvReac Type Severity Reaction Status Date / Time No Known Drug Allergies Allergy Verified 08/28/18 11:26 History of Present Illness: patient here requesting detox from ETOH use , reports 2-3 pints and 2 x 6-pk / day since 1999 when his father , prior detox x 7 , most recently 2017 at this facility , sober x 1 year , relapsed 1 month ago , current symptoms as above , latest use this morning , reports chills and tremors if not drinking , denies seizures, + blackouts, denies falls while intoxicated . MARIA A 0.068 cocaine : 4 bags/day since 1999 tobacco - denies PMHX : asthma , depression, anxiety PShx : denies meds: zyprexa, lexapro, trazodone - did not bring meds Shx : lives alone , finances lifestyle through public assistance funds. Exam Limitations: No Limitations - Ebola screening Have you traveled outside of the country in the last 21 days: No Have you had contact with anyone from an Ebola affected area: No Have you been sick,other than usual withdrawal symptoms: No Do you have a fever: No - Review of Systems Constitutional: See HPI EENT: reports: Other (denies vision loss) Respiratory: reports: No Symptoms reported Cardiac: reports: No Symptoms Reported GI: reports: See HPI : reports: No Symptoms Reported Integumentary: reports: No Symptoms Reported Endocrine: reports: No Symptoms Reported Psychiatric: reports: Orientated x3, Agitated, Anxious Patient History - Patient Medical History Hx Anemia: No Hx Asthma: No Hx Chronic Obstructive Pulmonary Disease (COPD): No Hx Cancer: No Hx Cardiac Disorders: No Hx Congestive Heart Failure: No Hx Hypertension: No Hx Hypercholesterolemia: No Hx Pacemaker: No HX Cerebrovascular Accident: No Hx Seizures: No Hx Dementia: No Hx Diabetes: No Hx Gastrointestinal Disorders: No Hx Liver Disease: No Hx Genitourinary Disorders: No Hx Sexually Transmitted Disorders: No Hx Renal Disease (ESRD): No Hx Thyroid Disease: No Hx Human Immunodeficiency Virus (HIV): No (negative) Hx Hepatitis C: No (negative) Hx Depression: Yes Hx Suicide Attempt: No Hx Bipolar Disorder: No Hx Schizophrenia: No - Patient Surgical History Past Surgical History: No Hx Neurologic Surgery: No Hx Cataract Extraction: No Hx Cardiac Surgery: No Hx Lung Surgery: No Hx Breast Surgery: No Hx Breast Biopsy: No Hx Abdominal Surgery: No Hx Appendectomy: No Hx Cholecystectomy: No Hx Genitourinary Surgery: No Hx Section: No Hx Orthopedic Surgery: No Anesthesia Reaction: No - PPD History Previous Implant?: Yes Documented Results: Negative w/o proof Implanted On Prior R Admission?: Yes Date: 06/15/17 Results: 0 mm - Smoking Cessation Smoking history: Current some day smoker Have you smoked in the past 12 months: No Aproximately how many cigarettes per day: 2 If you are a former smoker, when did you quit?: 09/26 Cigars Per Day: 0 Hx Chewing Tobacco Use: No Initiated information on smoking cessation: No - Substances Abused Alcohol Frequency: Daily Amount used: 6PK BEER/ 2 PINTS RUM Age of first use: 21 Date of Last Use: 08/28/18 Cocaine Route: Inhalation Frequency: Daily Amount used: 3 BAGS Age of first use: 24 Date of Last Use: 08/28/18 Family Disease History - Family Disease History Family Disease History: CA: Father (prostate ca 1990 ) Admission Physical Exam BHS - Vital Signs Vital Signs: Vital Signs - 24 hr 08/28/18 11:00 Temperature 96.9 F L Pulse Rate 98 H Respiratory 18 Rate Blood Pressure 131/69 - Physical General Appearance: Yes: Mild Distress, Anxious HEENTM: Yes: EOMI, Normocephalic, Normal Voice Respiratory: Yes: Chest Non-Tender, Lungs Clear, Normal Breath Sounds Neck: Yes: No masses,lesions,Nodules, Trachea in good position Cardiology: Yes: Regular Rhythm, Regular Rate, S1, S2, Tachycardia Abdominal: Yes: Normal Bowel Sounds, Soft Back: Yes: Normal Inspection Musculoskeletal: Yes: full range of Motion Extremities: Yes: Normal Capillary Refill Neurological: Yes: Alert, Motor Strength 5/5 - Diagnostic (1) Alcohol dependence with uncomplicated withdrawal Current Visit: Yes Status: Acute (2) Asthma Current Visit: No Status: Chronic Qualifiers: Asthma severity: mild Asthma complication type: unspecified (3) Cocaine dependence Current Visit: Yes Status: Chronic Qualifiers: Substance use status: uncomplicated Qualified Code(s): F14.20 - Cocaine dependence, uncomplicated BHS Breath Alcohol Content Breath Alcohol Content: 0.068 Urine Drug Screen - Results Drug Screen Negative: No Urine Drug Screen Results: DORA-Cocaine
[2018-08-28] MEDS ORDERED: chlordiazePOXIDE HCL 25 MG CAPSULE PO PRN (11:57)
[2018-08-28] MEDS ORDERED: ACETAMINOPHEN 325 MG TABLET (FP) PO PRN (11:57)
[2018-08-28] MEDS ORDERED: MENTHOL/PHENOL 1 EACH UD MM PRN (11:57)
[2018-08-28] MEDS ORDERED: MAGNESIUM CITRATE 300 ML BOTTLE PO PRN (11:57)
[2018-08-28] MEDS ORDERED: P-EPHED 60MG/TRIPROLIDI 2.5MG TABLET PO PRN (11:57)
[2018-08-28] MEDS ORDERED: MAGNESIUM HYDROX 2400MG/30ML ORAL SUSPENSION 30 ML CUP PO PRN (11:57)
[2018-08-28] MEDS ORDERED: guaiFENesin/D-METHORPHAN HB 10 ML UNIT-DOSE CUPS PO PRN (11:57)
[2018-08-28] MEDS ORDERED: MAG HYDROX/AL HYDROX/SIMETH 30 ML UNIT-DOSE CUP PO PRN (11:57)
[2018-08-28] MEDS ORDERED: IBUPROFEN 400 MG TABLET (FP) PO PRN (11:57)
[2018-08-28] MEDS ORDERED: ALBUTEROL SO4 8 GM HFA INHALER IH PRN (11:58)
[2018-08-28] MEDS: chlordiazePOXIDE HCL 25 MG CAPSULE PO SCH ×2 (17:23→22:22)
--- NOTE | 2018-08-28 17:46 | CONSULT ---
[facility] Psychiatric Consult - Data Date of interview: 08/28/18 Admission source: [facility] Identifying data: This is one of multiple admissions to [facility] for this 52 y/ o AA male seeking detoxification treatment, on 3 , for alcohol and cocaine dependence. Patient is single without children, domiciled, unemployed and supported on welfare. Substance Abuse History: Confirmed by the patient. Details in current [facility] report : Smoking history: Current some day smoker. Have you smoked in the past 12 months: No. Aproximately how many cigarettes per day: 2. If you are a former smoker, when did you quit?: 09/26. Cigars Per Day: 0. Hx Chewing Tobacco Use: No. Initiated information on smoking cessation: Yes. - Substances Abused. Alcohol. Frequency: Daily. Amount used: 6PK BEER/ 2 PINTS RUM. Age of first use: 21. Date of Last Use: 08/28/18. Cocaine. Route: Inhalation. Frequency: Daily. Amount used: 3 BAGS. Age of first use: 24. Date of Last Use: 08/28/18 Medical History: Bronchial asthma. Psychiatric History: History of multiple psychiatric hospitalizations ([facility], [facility], [facility]). Patient is diagnosed with Bipolar Disorder. Sees a psychiatrist at the [facility] in [facility]. Maintained on a regimen of citalopram 20 mg/day + trazodone 50 mg/hs + zyprexa 15 mg/day. Mr Monsivais admits to a history of multiple suicide attempts (overdose, ideation to defenestrate, self- mutilation, deliberate jump onto path on oncoming traffic). Last suicide attempt reported to having occurred in 2017 (exposure to traffic). Physical/Sexual Abuse/Trauma History: Patient denies. Additional Comment: Urine Drug Screen Results: DORA-Cocaine. Noted. Mental Status Exam - Mental Status Exam Alert and Oriented to: Time, Place, Person Cognitive Function: Good Patient Appearance: Well Groomed Mood: Nervous, Withdrawn Affect: Mood Congruent, Constricted Patient Behavior: Fatigued, Cooperative Speech Pattern: Clear, Appropriate Voice Loudness: Normal Thought Process: Goal Oriented Thought Disorder: Not Present Hallucinations: Denies Suicidal Ideation: Denies Homicidal Ideation: Denies Insight/Judgement: Poor Sleep: Fair Appetite: Good Muscle strength/Tone: Normal Gait/Station: Other (not observed. Resting in bed during interview.) Psychiatric Findings - Problem List ([place] 1, 2,3) (1) Alcohol dependence with uncomplicated withdrawal Current Visit: Yes Status: Acute (2) Cocaine dependence Current Visit: Yes Status: Chronic Qualifiers: Substance use status: uncomplicated Qualified Code(s): F14.20 - Cocaine dependence, uncomplicated (3) Substance induced mood disorder Current Visit: Yes Status: Acute (4) Schizoaffective disorder Current Visit: Yes Status: Chronic Comment: As per patient. (5) Insomnia Current Visit: Yes Status: Acute - Initial Treatment Plan Initial Treatment Plan: Psychoeducation. Seep hygiene. Detoxification in progress. Medications : citalopram 20 mg po daily + trazodone 50 mg po hs + zyprexa 10 mg po hs. Side effects/benefits of each medication are discussed with the patient. Risk of priapism, cardiovascular adverse events and metabolic syndrome : discussed with patient. Mr Monsivais is in agreement with this plan of care. Observation. Pharmacy claims of 08/07/18 at [facility] : reviewed (citalopram 20 mg/day + olanzapine 20 mg/hs + trazodone 50 mg/hs).
[2018-08-28] MEDS ORDERED: MELATONIN 5 MG TABLETS PO PRN (22:00)
[2018-08-28] MEDS: traZODone HCL 50 MG TABLET (FP) PO SCH (22:22)
[2018-08-28] MEDS: OLANZapine 10 MG TABLET PO SCH (22:22)
[2018-08-28] MEDS: THIAMINE HCL 100 MG TABLET (FP) PO SCH (22:22)
[2018-08-29] MEDS: chlordiazePOXIDE HCL 25 MG CAPSULE PO SCH ×4 (05:20→22:33)
[2018-08-29] MEDS ORDERED: ESCITALOPRAM OXALATE 20 MG TABLET (FP) PO SCH (10:00)
[2018-08-29] MEDS: PRENATAL VITAMINS W/ FOLIC ACID TABLET (FP) PO SCH (10:27)
[2018-08-29 11:00] LABS: ALBUMIN 4.1 g/dl (3.4-5.0); ALK PHOS 67 U/L (45-117); ANION GAP 11 MMOL/L (8-16); BILIRUBIN,TOTAL 0.8 mg/dL (0.2-1); BLOOD UREA NITROGEN 11 mg/dL (7-18); CALCIUM 8.8 mg/dL (8.5-10.1); CHLORIDE 104 mmol/L (98-107); CO2 24 mmol/L (21-32); CREATININE 1.1 mg/dL (0.55-1.3); GLUCOSE,RANDOM 87 mg/dL (74-106); POTASSIUM 3.4 mmol/L (3.5-5.1); SGOT/AST 26 U/L (15-37); SGPT/ALT 23 U/L (13-61); SODIUM 139 mmol/L (136-145); TOT PROT 7.2 g/dl (6.4-8.2)
--- NOTE | 2018-08-29 11:00 | PN ---
BHS CIWA - CIWA Score Nausea/Vomitin Muscle Tremors: 2 Anxiety: 2 Agitation: 2 Paroxysmal Sweats: 2 Orientation: 0-Oriented Tacttile Disturbances: 1-Very Mild Itch/Numbness Auditory Disturbances: 0-None Visual Disturbances: 0-None Headache: 2-Mild CIWA-Ar Total Score: 13 BHS Progress Note (SOAP) Subjective: Interrupted sleep, tremors, sweats, fatigue Objective: 08/29/18 11:00 Vital Signs Temperature 97.8 F 08/29/18 09:44 Pulse Rate 86 08/29/18 09:44 Respiratory Rate 18 08/29/18 09:44 Blood Pressure 109/70 08/29/18 09:44 O2 Sat by Pulse Oximetry (%) Labs pending Assessment: 08/29/18 11:00 Withdrawal sx Plan: Continue detox
[2018-08-29 11:10] LABS: HEMOGLOBIN 13.8 GM/dL (11.7-16.9); MEAN PLT VOLUME 9.4 fl (7.5-11.1); PLATELET COUNT 198 K/MM3 (134-434)
[2018-08-29 11:13] LABS: HEMATOCRIT 42.1 % (35.4-49); MCH 33.1 pg (25.7-33.7); MCHC 32.7 g/dl (32.0-35.9); MEAN CELL VOLUME 101.3 fl (80-96); RBC 4.16 M/mm3 (4.00-5.60); RDW 13.2 % (11.9-15.9); WHITE BLOOD COUNT 6.6 K/mm3 (4.0-10.0)
[2018-08-29] MEDS: THIAMINE HCL 100 MG TABLET (FP) PO SCH (22:33)
[2018-08-29] MEDS: OLANZapine 10 MG TABLET PO SCH (22:33)
[2018-08-29] MEDS: traZODone HCL 50 MG TABLET (FP) PO SCH (22:33)
[2018-08-30] MEDS: chlordiazePOXIDE HCL 25 MG CAPSULE PO SCH ×2 (06:16→10:25)
[2018-08-30] MEDS: PRENATAL VITAMINS W/ FOLIC ACID TABLET (FP) PO SCH (10:25)
[2018-08-30] MEDS ORDERED: POTASSIUM CHLORIDE TABS 20 MEQ TABLET.ER (FP) PO ONE ×2 (16:12→21:00)
--- NOTE | 2018-08-30 16:15 | PN ---
[facility] CIWA - CIWA Score Nausea/Vomitin-Mild Nausea/No Vomiting Muscle Tremors: 2 Anxiety: 2 Agitation: 2 Paroxysmal Sweats: 2 Orientation: 0-Oriented Tacttile Disturbances: 0-None Auditory Disturbances: 0-None Visual Disturbances: 0-None Headache: 0-None Present CIWA-Ar Total Score: 9 S Progress Note (SOAP) Subjective: Tremor, chills, sweating, diarrhea, interrupted sleep Objective: 08/30/18 16:10 Last Vital Signs Temp Pulse Resp BP Pulse Ox 97.3 F L 91 H 18 101/70 08/30/18 13:16 08/30/18 13:16 08/30/18 13:16 08/30/18 13:16 Laboratory Tests 08/29/18 08/29/18 08/29/18 05:30 05:30 05:30 WBC 6.6 RBC 4.16 Hgb 13.8 Hct 42.1 MCV 101.3 H MCH 33.1 MCHC 32.7 RDW 13.2 Plt Count 198 MPV 9.4 Sodium 139 Potassium 3.4 L Chloride 104 Carbon Dioxide 24 Anion Gap 11 BUN 11 Creatinine 1.1 Creat Clearance w eGFR > 60 Random Glucose 87 Calcium 8.8 Total Bilirubin 0.8 AST 26 ALT 23 Alkaline Phosphatase 67 Total Protein 7.2 Albumin 4.1 RPR Titer Nonreactive Labs reviewed: K 3.4 Assessment: 08/30/18 16:10 Withdrawal symptoms Noted with hypokalemia Plan: Continue detox Hypokalemia: K Dur 40 Meq PO x 2 doses (give at least 4 hrs apart, will give 2 doses as patient c/o diarrhea), repeat serum K level in AM
[2018-08-30] MEDS: chlordiazePOXIDE 5 MG CAPSULE PO SCH ×2 (17:35→22:31)
[2018-08-30] MEDS: traZODone HCL 50 MG TABLET (FP) PO SCH (22:31)
[2018-08-30] MEDS: OLANZapine 10 MG TABLET PO SCH (22:31)
[2018-08-30] MEDS: THIAMINE HCL 100 MG TABLET (FP) PO SCH (22:35)
[2018-08-31] MEDS: chlordiazePOXIDE 5 MG CAPSULE PO SCH ×2 (05:16→10:12)
--- NOTE | 2018-08-31 09:49 | PN ---
BHS Progress Note (SOAP) Subjective: mild headaches feeling better today no tremor less sweat longest sobriety 5 years patient wants to return to community self help group and attend meeting Objective: 08/31/18 09:50 Vital Signs Temperature 96.6 F L 08/31/18 09:47 Pulse Rate 80 08/31/18 09:47 Respiratory Rate 16 08/31/18 09:47 Blood Pressure 105/60 08/31/18 09:47 O2 Sat by Pulse Oximetry (%) Laboratory Last Values WBC 6.6 K/mm3 (4.0-10.0) 08/29/18 05:30 RBC 4.16 M/mm3 (4.00-5.60) 08/29/18 05:30 Hgb 13.8 GM/dL (11.7-16.9) 08/29/18 05:30 Hct 42.1 % (35.4-49) 08/29/18 05:30 MCV 101.3 fl (80-96) H 08/29/18 05:30 MCH 33.1 pg (25.7-33.7) 08/29/18 05:30 MCHC 32.7 g/dl (32.0-35.9) 08/29/18 05:30 RDW 13.2 % (11.9-15.9) 08/29/18 05:30 Plt Count 198 K/MM3 (134-434) 08/29/18 05:30 MPV 9.4 fl (7.5-11.1) 08/29/18 05:30 Sodium 139 mmol/L (136-145) 08/29/18 05:30 Potassium 3.4 mmol/L (3.5-5.1) L 08/29/18 05:30 Chloride 104 mmol/L (98-107) 08/29/18 05:30 Carbon Dioxide 24 mmol/L (21-32) 08/29/18 05:30 Anion Gap 11 MMOL/L (8-16) 08/29/18 05:30 BUN 11 mg/dL (7-18) 08/29/18 05:30 Creatinine 1.1 mg/dL (0.55-1.3) 08/29/18 05:30 Creat Clearance w eGFR > 60 (>60) 08/29/18 05:30 Random Glucose 87 mg/dL (74-106) 08/29/18 05:30 Calcium 8.8 mg/dL (8.5-10.1) 08/29/18 05:30 Total Bilirubin 0.8 mg/dL (0.2-1) 08/29/18 05:30 AST 26 U/L (15-37) 08/29/18 05:30 ALT 23 U/L (13-61) 08/29/18 05:30 Alkaline Phosphatase 67 U/L (45-117) 08/29/18 05:30 Total Protein 7.2 g/dl (6.4-8.2) 08/29/18 05:30 Albumin 4.1 g/dl (3.4-5.0) 08/29/18 05:30 RPR Titer Nonreactive (NONREACTIVE) 08/29/18 05:30 lab noted 08/31/18 09:50 repeat K+ pending Assessment: 08/31/18 09:50 mild withdrawal sx low K+_ Plan: medically supervised detox K+ repat pending
[2018-08-31] MEDS: PRENATAL VITAMINS W/ FOLIC ACID TABLET (FP) PO SCH (10:12)
[2018-08-31 10:33] LABS: ANION GAP 6 MMOL/L (8-16); BLOOD UREA NITROGEN 15 mg/dL (7-18); CALCIUM 8.5 mg/dL (8.5-10.1); CHLORIDE 108 mmol/L (98-107); CO2 26 mmol/L (21-32); CREATININE 0.9 mg/dL (0.55-1.3); GLUCOSE,RANDOM 71 mg/dL (74-106); POTASSIUM 4.4 mmol/L (3.5-5.1); SODIUM 140 mmol/L (136-145)
[2018-08-31] MEDS: chlordiazePOXIDE HCL 10 MG CAPSULE PO SCH ×2 (17:09→22:31)
[2018-08-31] MEDS: THIAMINE HCL 100 MG TABLET (FP) PO SCH (22:31)
[2018-08-31] MEDS: traZODone HCL 50 MG TABLET (FP) PO SCH (22:31)
[2018-08-31] MEDS: OLANZapine 10 MG TABLET PO SCH (22:31)
[2018-09-01] MEDS: chlordiazePOXIDE HCL 10 MG CAPSULE PO SCH ×2 (05:22→10:15)
[2018-09-01] MEDS: PRENATAL VITAMINS W/ FOLIC ACID TABLET (FP) PO SCH (10:14)
--- NOTE | 2018-09-01 11:45 | DS ---
[facility] Detox Discharge Summary Admission Date: 08/28/18 Discharge Date: 09/01/18 - History Present History: Alcohol Dependence Additional Comments: 52 years old male admitted on 08/28/18 for alcohol withdrawal stabilization completed alcohol detox regimen tolerated well after no acute distress aftercare [facility] - Physical Exam Results Vital Signs: Vital Signs Temperature 97.9 F 09/01/18 06:16 Pulse Rate 66 09/01/18 06:16 Respiratory Rate 18 09/01/18 06:16 Blood Pressure 139/90 09/01/18 06:16 O2 Sat by Pulse Oximetry (%) Pertinent Admission Physical Exam Findings: alcohol withdrawal sx Vital Signs Temperature 97.9 F 09/01/18 06:16 Pulse Rate 66 09/01/18 06:16 Respiratory Rate 18 09/01/18 06:16 Blood Pressure 139/90 09/01/18 06:16 O2 Sat by Pulse Oximetry (%) Laboratory Last Values WBC 6.6 K/mm3 (4.0-10.0) 08/29/18 05:30 RBC 4.16 M/mm3 (4.00-5.60) 08/29/18 05:30 Hgb 13.8 GM/dL (11.7-16.9) 08/29/18 05:30 Hct 42.1 % (35.4-49) 08/29/18 05:30 MCV 101.3 fl (80-96) H 08/29/18 05:30 MCH 33.1 pg (25.7-33.7) 08/29/18 05:30 MCHC 32.7 g/dl (32.0-35.9) 08/29/18 05:30 RDW 13.2 % (11.9-15.9) 08/29/18 05:30 Plt Count 198 K/MM3 (134-434) 08/29/18 05:30 MPV 9.4 fl (7.5-11.1) 08/29/18 05:30 Sodium 140 mmol/L (136-145) 08/31/18 07:00 Potassium 4.4 mmol/L (3.5-5.1) 08/31/18 07:00 Chloride 108 mmol/L (98-107) H 08/31/18 07:00 Carbon Dioxide 26 mmol/L (21-32) 08/31/18 07:00 Anion Gap 6 MMOL/L (8-16) L 08/31/18 07:00 BUN 15 mg/dL (7-18) 08/31/18 07:00 Creatinine 0.9 mg/dL (0.55-1.3) 08/31/18 07:00 Creat Clearance w eGFR > 60 (>60) 08/31/18 07:00 Random Glucose 71 mg/dL (74-106) L 08/31/18 07:00 Calcium 8.5 mg/dL (8.5-10.1) 08/31/18 07:00 Total Bilirubin 0.8 mg/dL (0.2-1) 08/29/18 05:30 AST 26 U/L (15-37) 08/29/18 05:30 ALT 23 U/L (13-61) 08/29/18 05:30 Alkaline Phosphatase 67 U/L (45-117) 08/29/18 05:30 Total Protein 7.2 g/dl (6.4-8.2) 08/29/18 05:30 Albumin 4.1 g/dl (3.4-5.0) 08/29/18 05:30 RPR Titer Nonreactive (NONREACTIVE) 08/29/18 05:30 lab noted - Treatment Hospital Course: Detox Protocol Followed, Detoxed Safely, Responded well, Discharged Condition Good, Rehab Referral Accepted Patient has Accepted a [facility] Referral to[facility] - Medication Discharge Medications: Ambulatory Orders Escitalopram Oxalate [Lexapro -] 20 mg PO DAILY 06/17/17 Olanzapine [Zyprexa] 20 mg PO HS 06/17/17 traZODone HCL [Trazodone HCl] 100 mg PO HS 06/17/17 Albuterol Sulfate Inhaler - [Ventolin HFA Inhaler -] 2 inh IH Q4H PRN #1 inhaler 08/31/18 - Diagnosis (1) Alcohol dependence with uncomplicated withdrawal Current Visit: Yes Status: Acute (2) Substance induced mood disorder Current Visit: Yes Status: Suspected (3) Nicotine dependence Current Visit: Yes Status: Acute Qualifiers: Nicotine product type: cigarettes Substance use status: in withdrawal Qualified Code(s): F17.213 - Nicotine dependence, cigarettes, with withdrawal (4) Weight loss Current Visit: Yes Status: Acute (5) Asthma Current Visit: Yes Status: Chronic Qualifiers: Asthma severity: mild Asthma persistence: intermittent Asthma complication type: unspecified Qualified Code(s): J45.20 - Mild intermittent asthma, uncomplicated - AMA Did Patient Leave Against Medical Advice: No
[2018-09-01 14:04] VITALS: BP 116/73; PULSE 86; TEMP 96.1
== END 2018-09-01 15:30 | disposition other institution (70) | DRG 774 ==
LOC: YASAS 10:27 → Y3N 12:31
PROC: HZ2ZZZZ Detoxification Services for Substance Abuse Treatment (ICD-10-PCS; principal; 2018-08-28)
DX: F10.230 Alcohol dependence with withdrawal, uncomplicated (principal); F10.282 Alcohol dependence with alcohol-induced sleep disorder; F14.20 Cocaine dependence, uncomplicated; F17.213 Nicotine dependence, cigarettes, with withdrawal; F19.24 Other psychoactive substance dependence with psychoactive substance-induced mood disorder; F33.9 Major depressive disorder, recurrent, unspecified; F25.9 Schizoaffective disorder, unspecified; J45.20 Mild intermittent asthma, uncomplicated; R19.7 Diarrhea, unspecified; E87.6 Hypokalemia; R00.0 Tachycardia, unspecified
CPT/HCPCS: 36415; 80048; 80053; 85027; 86593

== ENCOUNTER 2018-09-01 15:36 | Inpatient (IN) | payer OTHER ==
--- NOTE | 2018-09-01 11:48 | HP ---
[facility] Rehab Assess/Revision - Admission History Admitted to Rehab from: [facility] Date of Admission to Rehab: 09/01/18 - Findings Detox History & Physical reviewed: Yes Concur with findings: Yes Comments/Additional Findings: transferred from detox to rehab admission as per protocol Inpatient Rehab Admission - Initial Determination Are CD services needed?: Yes Free of communicable disease: Yes Not in need of hospitalization: Yes - Rehab Admission Criteria Previous failed treatment: Yes Poor recovery environment: Yes Comorbidities: Yes Lacks judgement: No Patient is meeting Inpatient Rehab admission criteria:: Yes
[~2018-09-01 15:36] MED LIST: ACETAMINOPHEN 325 MG TABLET (FP) PO PRN; ALBUTEROL SO4 8 GM HFA INHALER IH PRN; IBUPROFEN 400 MG TABLET (FP) PO PRN; LOPERAMIDE HCL 2 MG CAPSULE PO PRN; MAG HYDROX/AL HYDROX/SIMETH 30 ML UNIT-DOSE CUP PO PRN; MAGNESIUM CITRATE 300 ML BOTTLE PO PRN; MAGNESIUM HYDROX 2400MG/30ML ORAL SUSPENSION 30 ML CUP PO PRN; MENTHOL/PHENOL 1 EACH UD MM PRN; NICOTINE 14 MG/24 HOURS TOPICAL PATCH TD PRN; NICOTINE POLACRILEX 2 MG GUM BUC PRN; P-EPHED 60MG/TRIPROLIDI 2.5MG TABLET PO PRN; guaiFENesin/D-METHORPHAN HB 10 ML UNIT-DOSE CUPS PO PRN
--- NOTE | 2018-09-01 16:56 | HP ---
Psychiatrist Admission - Data Date of interview: 09/01/18 Admission source: [facility] Identifying data: Patient is a 52 year old single male, father of two, unemployed, domiciled, and is supported by public assistance. This is one of multiple admissions to rehab at [facility]. Patient admitted to for alcohol and cocaine dependence. Medical History: Asthma Psychiatric History: Patient's first psychiatric contact was at 25 years of age at [facility] after contemplating suicide. He was admitted to the psychiatric unit, prescribed zyprexa and lexapro, and diagnosed with schizoaffective disorder. After discharge he continued outpatient psychiatric treatment at [facility]. Patient's most recent psychiatric hospitalization was at [facility] last month for mood instability and command auditory hallucinations of voices telling him to hurt himself. Patient is also known to Health system. Current outpatient psychiatric care is provided at [facility]. He is currently prescribed Celexa 20mg daily + Zyprexa 20mg HS + Trazdone 50mg HS. Pharmacy claims reviewed and verified. Pt. was seen by Dr. Reyes in detox. Dr. Reyes noted read and appreciated. At present, he reports stable mood and denies psychotic symptoms. Patient denies h/o suicide attempt. Physical/Sexual Abuse/Trauma History: Denies. Allergies/Adverse Reactions: Allergies Allergy/AdvReac Type Severity Reaction Status Date / Time No Known Drug Allergies Allergy Verified 08/28/18 11:26 Date of last physical exam: 08/28/18 Concur with the findings of this exam: Yes - Substance Abuse/Tx History Hx Alcohol Use: Yes (2 six packs daily) Hx Substance Use: Yes (Cocaine- one bag daily) Substance Use Type: Cocaine Hx Substance Use Treatment: Yes ([facility]) Mental Status Exam - Mental Status Exam Alert and Oriented to: Time, Place, Person Cognitive Function: Good Patient Appearance: Well Groomed Mood: Euthymic Affect: Appropriate Patient Behavior: Appropriate, Cooperative Speech Pattern: Clear, Appropriate Voice Loudness: Normal Thought Process: Intact, Goal Oriented Thought Disorder: Not Present Hallucinations: Denies Suicidal Ideation: Denies Homicidal Ideation: Denies Insight/Judgement: Poor Sleep: Fair Appetite: Fair Muscle strength/Tone: Normal Gait/Station: Normal Psychiatric Findings - Problem List ([place] 1, 2,3) (1) Alcohol dependence Current Visit: Yes Status: Acute (2) Cocaine dependence Current Visit: Yes Status: Chronic Qualifiers: Substance use status: uncomplicated Qualified Code(s): F14.20 - Cocaine dependence, uncomplicated (3) Schizoaffective disorder Current Visit: Yes Status: Chronic Comment: As per patient. - Initial Treatment Plan Initial Treatment Plan: Psychoeducation provided. Rehab in progress. Will continue current medications of Celexa 20mg + Trazdone 50mg. Will increase zyprexa 10mg to 20mg qhs. Benefits and side effects discussed. Verbal consent given.
[2018-09-01] MEDS: THIAMINE HCL 100 MG TABLET (FP) PO SCH (21:01)
[2018-09-01] MEDS: OLANZapine 10 MG TABLET PO SCH (21:01)
[2018-09-01] MEDS: traZODone HCL 50 MG TABLET (FP) PO SCH (21:01)
[2018-09-01] MEDS ORDERED: MELATONIN 5 MG TABLETS PO PRN (22:00)
[2018-09-02] MEDS: CITALOPRAM HYDROBROMIDE 20 MG TABLET (FP) PO SCH (09:52)
[2018-09-02] MEDS: PRENATAL VITAMINS W/ FOLIC ACID TABLET (FP) PO SCH (09:52)
[2018-09-02] MEDS: OLANZapine 10 MG TABLET PO SCH (21:44)
[2018-09-02] MEDS: THIAMINE HCL 100 MG TABLET (FP) PO SCH (21:44)
[2018-09-02] MEDS: traZODone HCL 50 MG TABLET (FP) PO SCH (21:44)
[2018-09-03] MEDS: PRENATAL VITAMINS W/ FOLIC ACID TABLET (FP) PO SCH (10:16)
[2018-09-03] MEDS: CITALOPRAM HYDROBROMIDE 20 MG TABLET (FP) PO SCH (10:16)
[2018-09-03] MEDS: OLANZapine 10 MG TABLET PO SCH (22:05)
[2018-09-03] MEDS: THIAMINE HCL 100 MG TABLET (FP) PO SCH (22:05)
[2018-09-03] MEDS: traZODone HCL 50 MG TABLET (FP) PO SCH (22:05)
[2018-09-04] MEDS: PRENATAL VITAMINS W/ FOLIC ACID TABLET (FP) PO SCH (09:59)
[2018-09-04] MEDS: CITALOPRAM HYDROBROMIDE 20 MG TABLET (FP) PO SCH (09:59)
[2018-09-04] MEDS: THIAMINE HCL 100 MG TABLET (FP) PO SCH (21:49)
[2018-09-04] MEDS: OLANZapine 10 MG TABLET PO SCH (21:49)
[2018-09-04] MEDS: traZODone HCL 50 MG TABLET (FP) PO SCH (21:49)
[2018-09-05] MEDS: CITALOPRAM HYDROBROMIDE 20 MG TABLET (FP) PO SCH (10:05)
[2018-09-05] MEDS: PRENATAL VITAMINS W/ FOLIC ACID TABLET (FP) PO SCH (10:05)
[2018-09-05] MEDS: traZODone HCL 50 MG TABLET (FP) PO SCH (21:59)
[2018-09-05] MEDS: THIAMINE HCL 100 MG TABLET (FP) PO SCH (21:59)
[2018-09-05] MEDS: OLANZapine 10 MG TABLET PO SCH (21:59)
[2018-09-06] MEDS: CITALOPRAM HYDROBROMIDE 20 MG TABLET (FP) PO SCH (10:21)
[2018-09-06] MEDS: PRENATAL VITAMINS W/ FOLIC ACID TABLET (FP) PO SCH (10:21)
[2018-09-06] MEDS: traZODone HCL 50 MG TABLET (FP) PO SCH (21:24)
[2018-09-06] MEDS: THIAMINE HCL 100 MG TABLET (FP) PO SCH (21:24)
[2018-09-06] MEDS: OLANZapine 10 MG TABLET PO SCH (21:24)
[2018-09-07] MEDS: PRENATAL VITAMINS W/ FOLIC ACID TABLET (FP) PO SCH (10:20)
[2018-09-07] MEDS: CITALOPRAM HYDROBROMIDE 20 MG TABLET (FP) PO SCH (10:20)
[2018-09-07] MEDS: traZODone HCL 50 MG TABLET (FP) PO SCH (21:23)
[2018-09-07] MEDS: OLANZapine 10 MG TABLET PO SCH (21:23)
[2018-09-07] MEDS: THIAMINE HCL 100 MG TABLET (FP) PO SCH (21:23)
[2018-09-08] MEDS: PRENATAL VITAMINS W/ FOLIC ACID TABLET (FP) PO SCH (10:28)
[2018-09-08] MEDS: CITALOPRAM HYDROBROMIDE 20 MG TABLET (FP) PO SCH (10:28)
[2018-09-08] MEDS: traZODone HCL 50 MG TABLET (FP) PO SCH (21:17)
[2018-09-08] MEDS: OLANZapine 10 MG TABLET PO SCH (21:17)
[2018-09-08] MEDS: THIAMINE HCL 100 MG TABLET (FP) PO SCH (21:17)
[2018-09-09] MEDS: PRENATAL VITAMINS W/ FOLIC ACID TABLET (FP) PO SCH (09:45)
[2018-09-09] MEDS: CITALOPRAM HYDROBROMIDE 20 MG TABLET (FP) PO SCH (09:45)
[2018-09-09] MEDS: THIAMINE HCL 100 MG TABLET (FP) PO SCH (21:42)
[2018-09-09] MEDS: traZODone HCL 50 MG TABLET (FP) PO SCH (21:42)
[2018-09-09] MEDS: OLANZapine 10 MG TABLET PO SCH (21:42)
[2018-09-10] MEDS: PRENATAL VITAMINS W/ FOLIC ACID TABLET (FP) PO SCH (10:19)
[2018-09-10] MEDS: CITALOPRAM HYDROBROMIDE 20 MG TABLET (FP) PO SCH (10:19)
[2018-09-10] MEDS: OLANZapine 10 MG TABLET PO SCH (21:19)
[2018-09-10] MEDS: THIAMINE HCL 100 MG TABLET (FP) PO SCH (21:19)
[2018-09-10] MEDS: traZODone HCL 50 MG TABLET (FP) PO SCH (21:20)
[2018-09-11] MEDS: PRENATAL VITAMINS W/ FOLIC ACID TABLET (FP) PO SCH (10:12)
[2018-09-11] MEDS: CITALOPRAM HYDROBROMIDE 20 MG TABLET (FP) PO SCH (10:12)
[2018-09-11] MEDS: THIAMINE HCL 100 MG TABLET (FP) PO SCH (21:10)
[2018-09-11] MEDS: OLANZapine 10 MG TABLET PO SCH (21:10)
[2018-09-11] MEDS: traZODone HCL 50 MG TABLET (FP) PO SCH (21:10)
[2018-09-12] MEDS: PRENATAL VITAMINS W/ FOLIC ACID TABLET (FP) PO SCH (09:43)
[2018-09-12] MEDS: CITALOPRAM HYDROBROMIDE 20 MG TABLET (FP) PO SCH (09:43)
[2018-09-12] MEDS ORDERED: PT OWN MED DRAWER 7, Y5N ONE (20:14)
[2018-09-12] MEDS: traZODone HCL 50 MG TABLET (FP) PO SCH (21:11)
[2018-09-12] MEDS: OLANZapine 10 MG TABLET PO SCH (21:11)
[2018-09-12] MEDS: THIAMINE HCL 100 MG TABLET (FP) PO SCH (21:11)
--- NOTE | 2018-09-13 06:34 | PN ---
Psychiatric Progress Note Vital Signs: Vital Signs Period Temp Pulse Resp BP Sys/Hollingsworth Pulse Ox Last 24 Hr 98 F 76 17-18 120/78 Date of Session: 09/13/18 Chief Complaint:: Discharge Note HPI: Patient addressing Alcohol and Cocaine Dependence comorbid with Nicotine Dependence and Schizoaffective Disorder ROS: Asthma Current Medications: Active Medications Generic Name Dose Route Start Last Admin Trade Name Freq PRN Reason Stop Dose Admin Acetaminophen 650 mg 09/01/18 11:48 Tylenol - PO Q4H PRN FEVER Al Hydroxide/Mg Hydroxide 30 ml 09/01/18 11:48 Mylanta Oral Suspension - PO Q6H PRN DYSPEPSIA Albuterol Sulfate 2 puff 09/01/18 11:49 Ventolin Hfa Inhaler - IH Q4H PRN ASTHMA Citalopram Hydrobromide 20 mg 09/02/18 10:00 09/12/18 09:43 Celexa - PO 20 mg DAILY FRANCISCO Administration Eucalyptus/Menthol/Phenol/Sorbitol 1 each 09/01/18 11:48 Cepastat Lozenge - MM Q4H PRN SORE THROAT Guaifenesin 10 ml 09/01/18 11:48 Robitussin Dm - PO Q6H PRN COUGH Ibuprofen 400 mg 09/01/18 11:48 Motrin - PO Q6H PRN Pain Level 4-6 Loperamide HCl 4 mg 09/01/18 11:48 Imodium - PO Q6H PRN DIARRHEA Magnesium Citrate 300 ml 09/01/18 11:48 Citroma - PO Q48H PRN CONSTIPATION Magnesium Hydroxide 30 ml 09/01/18 11:48 Milk Of Magnesia - PO DAILY PRN CONSTIPATION Melatonin 5 mg 09/01/18 22:00 Melatonin PO HS PRN INSOMNIA Nicotine 14 mg 09/01/18 11:48 Nicoderm Patch - TD DAILY PRN WITHDRAWAL(CONT SUBST) Nicotine Polacrilex 2 mg 09/01/18 11:48 Nicorette Gum - BUC Q2H PRN NICOTINE REPLACEMENT RX Olanzapine 20 mg 09/01/18 22:00 09/12/18 21:11 Zyprexa - PO 20 mg HS FRANCISCO Administration Multivit/Folic Acid/Iron 1 tab 09/02/18 10:00 09/12/18 09:43 Vitamins (Sjr) - PO 1 tab DAILY FRANCISCO Administration Pseudoephedrine/Triprolidine 1 combo 09/01/18 11:48 Actifed - PO TID PRN NASAL CONGESTION Thiamine HCl 100 mg 09/01/18 22:00 09/12/18 21:11 Vitamin B1 - PO 100 mg HS FRANCISCO Administration Trazodone HCl 50 mg 09/01/18 22:00 09/12/18 21:11 Desyrel - PO 50 mg HS FRANCISCO Administration Current Side Effect: No Lab tests ordered: Yes Lab tests reviewed: Yes Provider note:: Patient will complete this program on 09/14/18. He has met his treatment goals and will continue to address his issues in outpatient treatnent at [facility] [address] [facility], [place] [address]. 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 He responded well to Celexa 20 mg po daily, Trazadone 50 mg po HS and Zyprexa 20 mg po HS. Scripts for 30 days supply of these medications will be electronically transmited to [facility] at [address] [place] [address]. He is stable for discharge on 09/14/18 Total face to face time:: 35 Mental Status Exam - Mental Status Exam Alert and Oriented to: Time, Place, Person Cognitive Function: Fair Patient Appearance: Well Groomed Mood: Hopeful, Euthymic Affect: Appropriate Patient Behavior: Cooperative Speech Pattern: Clear Voice Loudness: Normal Thought Process: Intact, Goal Oriented Thought Disorder: Not Present Hallucinations: Denies Suicidal Ideation: Denies Homicidal Ideation: Denies Insight/Judgement: Fair Sleep: Fair Appetite: Good Muscle strength/Tone: Normal Gait/Station: Normal Psychiatric Treatment Plan - Problem List (1) Alcohol dependence Current Visit: Yes (2) Cocaine dependence Current Visit: Yes Qualifiers: Substance use status: uncomplicated Qualified Code(s): F14.20 - Cocaine dependence, uncomplicated (3) Nicotine dependence Current Visit: No Qualifiers: Nicotine product type: cigarettes Substance use status: in withdrawal Qualified Code(s): F17.213 - Nicotine dependence, cigarettes, with withdrawal (4) Schizoaffective disorder Current Visit: Yes Comment: As per patient. (5) Asthma Current Visit: No Qualifiers: Asthma severity: mild Asthma persistence: intermittent Asthma complication type: unspecified Qualified Code(s): J45.20 - Mild intermittent asthma, uncomplicated Initial treatment plan: Patient will be discharged tomorrow and referred to [facility] in the [place] for outpatient treatment
[2018-09-13 06:55] VITALS: BP 127/95; PULSE 81; TEMP 98
[2018-09-13] MEDS: PRENATAL VITAMINS W/ FOLIC ACID TABLET (FP) PO SCH (09:43)
[2018-09-13] MEDS: CITALOPRAM HYDROBROMIDE 20 MG TABLET (FP) PO SCH (09:43)
[2018-09-13] MEDS: traZODone HCL 50 MG TABLET (FP) PO SCH (21:10)
[2018-09-13] MEDS: OLANZapine 10 MG TABLET PO SCH (21:10)
[2018-09-13] MEDS: THIAMINE HCL 100 MG TABLET (FP) PO SCH (21:10)
== END 2018-09-14 08:50 | disposition home or self-care (01) | DRG 772 ==
LOC: YASAS 15:36 → Y3W 15:37
PROVIDERS: ADMIT Psychiatry & Neurology Psychiatry; ATTEND Psychiatry & Neurology Psychiatry
PROC: HZ42ZZZ Group Counseling for Substance Abuse Treatment, Cognitive-Behavioral (ICD-10-PCS; principal; 2018-09-01)
DX: F10.20 Alcohol dependence, uncomplicated (principal); F14.20 Cocaine dependence, uncomplicated; F17.213 Nicotine dependence, cigarettes, with withdrawal; F25.9 Schizoaffective disorder, unspecified; J45.20 Mild intermittent asthma, uncomplicated

== ENCOUNTER 2019-02-13 14:09 | Inpatient (IN) | payer OTHER ==
[2019-02-13 16:10] VITALS: BMI 21.9
--- NOTE | 2019-02-13 18:01 | HP ---
CIWA Score Nausea/Vomitin Muscle Tremors: 2 Anxiety: 2 Agitation: 1-Slight > Activity Paroxysmal Sweats: 2 Orientation: 0-Oriented Tacttile Disturbances: 2-Mild Itch/Numbness/Burn Auditory Disturbances: 2-Mild Harshness/Frighten Visual Disturbances: 0-None Headache: 0-None Present CIWA-Ar Total Score: 14 - Admission Criteria OASAS Guidelines: Admission for Medically Managed Detox: Requires at least one of the followin. CIWA greater than 12 2. Seizures within the past 24 hours 3. Delirium tremens within the past 24 hours 4. Hallucinations within the past 24 hours 5. Acute intervention needed for co occurring medical disorder 6. Acute intervention needed for co occurring psychiatric disorder 7. Severe withdrawal that cannot be handled at a lower level of care (continued vomiting, continued diarrhea, abnormal vital signs) requiring intravenous medication and/or fluids 8. Patient presents the following: CIWA greater than 12 Admission Criteria Met: Admission criteria met Admission ROS S - HPI Chief Complaint: I am here to seek help and to get myself better and to go into rehab after detox Allergies/Adverse Reactions: Allergies Allergy/AdvReac Type Severity Reaction Status Date / Time No Known Drug Allergies Allergy Verified 02/13/19 16:04 History of Present Illness: Patient is a 66 year old AA man who presents for detox from alcohol. His last treatment was in August of last year at [facility]. He reports previous blackouts and withdrawal related seizures. - Ebola screening Have you traveled outside of the country in the last 21 days: No (N) Have you had contact with anyone from an Ebola affected area: No Have you been sick,other than usual withdrawal symptoms: No Do you have a fever: No - Review of Systems Constitutional: Chills, Loss of Appetite, Changes in sleep, Unintentional Wgt. Loss EENT: reports: Nose Congestion (from recent cold) Respiratory: reports: No Symptoms reported Cardiac: reports: No Symptoms Reported GI: reports: Poor Appetite, Poor Fluid Intake, Abdominal cramping : reports: No Symptoms Reported Musculoskeletal: reports: Back Pain, Joint Pain, Muscle Pain, Muscle Weakness Integumentary: reports: No Symptoms Reported Neuro: reports: Seizure (last episode a month ago) Endocrine: reports: No Symptoms Reported Hematology: reports: No Symptoms Reported Psychiatric: reports: Anxious, Depressed Other Systems: Reviewed and Negative Patient History - Patient Medical History Hx Anemia: No Hx Asthma: Yes Hx Chronic Obstructive Pulmonary Disease (COPD): No Hx Cancer: No Hx Cardiac Disorders: No Hx Congestive Heart Failure: No Hx Hypertension: No Hx Hypercholesterolemia: No Hx Pacemaker: No HX Cerebrovascular Accident: No Hx Seizures: No Hx Dementia: No Hx Diabetes: No Hx Gastrointestinal Disorders: No Hx Liver Disease: No Hx Genitourinary Disorders: No Hx Sexually Transmitted Disorders: No Hx Renal Disease (ESRD): No Hx Thyroid Disease: No Hx Human Immunodeficiency Virus (HIV): No Hx Hepatitis C: No Hx Depression: Yes Hx Suicide Attempt: No Hx Bipolar Disorder: Yes Hx Schizophrenia: Yes - Patient Surgical History Past Surgical History: No - PPD History Previous Implant?: Yes Documented Results: Negative w/proof Implanted On Prior R Admission?: Yes Date: 08/30/18 Results: 0 mm PPD to be Administered?: No - Smoking Cessation Smoking history: Current some day smoker Have you smoked in the past 12 months: No Aproximately how many cigarettes per day: 3 Cigars Per Day: 0 Hx Chewing Tobacco Use: No Initiated information on smoking cessation: Yes 'Breaking Loose' booklet given: 02/13/19 - Substances abused Alcohol Substance route: Oral Frequency: Daily Amount used: 1 PT RUM, 6 PK BEER Age of first use: 20 Date of last use: 02/13/19 Crack Substance route: Smoking Frequency: Daily Amount used: $100 Age of first use: 20 Date of last use: 02/13/19 Family Disease History - Family Disease History Family Disease History: CA: Father (prostate ca 1990 ) Admission Physical Exam S - Vital Signs Vital Signs: Vital Signs - 24 hr 02/13/19 02/13/19 16:04 16:54 Temperature 97.4 F L 97.4 F L Pulse Rate 90 90 Respiratory 18 18 Rate Blood Pressure 116/79 116/99 - Physical General Appearance: Yes: No Apparent Distress HEENTM: Yes: EOMI, Hearing grossly Normal, Normocephalic, Normal Voice, BJ Respiratory: Yes: Chest Non-Tender, Lungs Clear, Normal Breath Sounds, No Respiratory Distress, No Accessory Muscle Use Neck: Yes: No masses,lesions,Nodules, Supple Breast: Yes: Breast Exam Deferred Cardiology: Yes: Regular Rhythm, Regular Rate Abdominal: Yes: Normal Bowel Sounds, Non Tender, Soft Genitourinary: Yes: Within Normal Limits Back: Yes: Normal Inspection Musculoskeletal: Yes: full range of Motion, Gait Steady, Pelvis Stable Extremities: Yes: Normal Capillary Refill, Normal Inspection, Non-Tender Neurological: Yes: sole filler II-XII NML intact, Fully Oriented, Alert, Normal Mood/ Affect, Normal Response Integumentary: Yes: Normal Color Lymphatic: Yes: Within Normal Limits - Diagnostic (1) Alcohol dependence with uncomplicated withdrawal Current Visit: Yes Status: Acute (2) Nicotine dependence Current Visit: No Status: Acute Qualifiers: Nicotine product type: cigarettes Substance use status: uncomplicated Qualified Code(s): F17.210 - Nicotine dependence, cigarettes, uncomplicated (3) Major depressive disorder Current Visit: Yes Status: Chronic (4) Schizoaffective disorder Current Visit: Yes Status: Chronic Comment: As per patient. Cleared for Admission S - Detox or Rehab [facility] Level of Care: Medically Managed Detox Regimen/Protocol: Librium Breathalyzer - Breathalyzer Breathalyzer: 0 Urine Drug Screen - Test Device Lot number: [id number] Expiration date: 11/12/20 - Control Is test valid?: Yes - Results Drug screen NEGATIVE: No Urine drug screen results: DORA-Cocaine Inpatient Rehab Admission - Rehab Decision to Admit Inpatient rehab admission?: No - Initial Determination Are CD services needed?: Yes Free of communicable disease: Yes Not in need of hospitalization: Yes
[2019-02-13] MEDS ORDERED: IBUPROFEN 400 MG TABLET (FP) PO PRN ×2 (18:04)
[2019-02-13] MEDS ORDERED: NICOTINE POLACRILEX 2 MG GUM BUC PRN (18:04)
[2019-02-13] MEDS ORDERED: ONDANSETRON *ODT* 4 MG TABLET SL PRN (18:04)
[2019-02-13] MEDS ORDERED: ACETAMINOPHEN 325 MG TABLET (FP) PO PRN ×2 (18:04)
[2019-02-13] MEDS ORDERED: MAG HYDROX/AL HYDROX/SIMETH 30 ML UNIT-DOSE CUP PO PRN (18:04)
[2019-02-13] MEDS ORDERED: MELATONIN 5 MG TABLETS PO PRN (18:04)
[2019-02-13] MEDS ORDERED: chlordiazePOXIDE HCL 25 MG CAPSULE PO ONE (18:04)
[2019-02-13] MEDS ORDERED: hydrOXYzine PAMOATE 50 MG CAPSULE (FP) PO PRN (18:04)
[2019-02-13] MEDS ORDERED: BISMUTH SUBSALICYLATE 524 MG/30 ML UD PO PRN (18:04)
[2019-02-13] MEDS ORDERED: chlordiazePOXIDE HCL 10 MG CAPSULE PO PRN (18:04)
[2019-02-13] MEDS ORDERED: MAGNESIUM HYDROX 2400MG/30ML ORAL SUSPENSION 30 ML CUP PO PRN (18:04)
[2019-02-13] MEDS ORDERED: MAGNESIUM CITRATE 300 ML BOTTLE PO PRN (18:04)
[2019-02-13] MEDS ORDERED: MENTHOL/PHENOL 1 EACH UD MM PRN (18:04)
[2019-02-13] MEDS ORDERED: METHOCARBAMOL 500 MG TABLET PO PRN (18:04)
[2019-02-13] MEDS ORDERED: ALBUTEROL SO4 8 GM HFA INHALER IH PRN (18:07)
[2019-02-13] MEDS: THIAMINE HCL 100 MG TABLET (FP) PO SCH (22:40)
[2019-02-13] MEDS: chlordiazePOXIDE HCL 25 MG CAPSULE PO SCH (22:40)
[2019-02-14] MEDS: chlordiazePOXIDE HCL 25 MG CAPSULE PO SCH ×2 (05:51→13:14)
[2019-02-14] MEDS: PRENATAL VITAMINS W/ FOLIC ACID TABLET (FP) PO SCH (09:39)
[2019-02-14 10:52] LABS: HEMATOCRIT 43.8 % (35.4-49); HEMOGLOBIN 14.9 GM/dL (11.7-16.9); MEAN PLT VOLUME 8.8 fl (7.5-11.1); PLATELET COUNT 192 K/MM3 (134-434); RBC 4.38 M/mm3 (4.00-5.60); WHITE BLOOD COUNT 4.2 K/mm3 (4.0-10.0)
[2019-02-14 11:10] LABS: ALBUMIN 3.4 g/dl (3.4-5.0); BILIRUBIN,TOTAL 1.2 mg/dL (0.2-1); CALCIUM 8.9 mg/dL (8.5-10.1); POTASSIUM 3.6 mmol/L (3.5-5.1); TOT PROT 6.6 g/dl (6.4-8.2)
--- NOTE | 2019-02-14 13:40 | CONSULT ---
[facility] Psychiatric Consult - Data Date of interview: 02/14/19 Admission source: Self-referred Identifying data: Mr Monsivais is a 53 years old single Black male, father of 2 children, unnemployed on public assistance, domiciled seeking detox treatment for alcohol and cocaine Substance Abuse History: Reports history of alcohol and crack cocaine use. Refer to addiction counselor's summary for further information Medical History: Significant for bronchial asthma. Smokes 3 cigarettes daily Psychiatric History: Reports that his first psychiatric treatment was in 1984 when he was admitted to [facility] for command auditory hallucinations and suicidal ideations. He was diagnosed with Bipolar Schizophrenia and treated with Zyprexa and Lexapro. Reports multiple subsequent admissions to various institutions([facility], [facility], [facility], [facility]). Most recent one was in 2017 to [facility] for depression and suicidal. Reports receiving outpatient treatment at [facility] and he is prescribed Celexa 20 mg po daily, Zyprexa 20 mg po HS and Trazadone 50 mg po HS. Denies history of suicidal attempt. Denies experiencing psychotic, manic or depressive symptoms, S/H ideations. However, reports feeling anxious and sleeping poorly Physical/Sexual Abuse/Trauma History: Denies history of verbal, physical or sexual abuse as well as DV relationship. No service Additional Comment: Denies criminal history Mental Status Exam - Mental Status Exam Alert and Oriented to: Time, Place, Person Cognitive Function: Fair Patient Appearance: Well Groomed Mood: Anxious Affect: Appropriate Patient Behavior: Cooperative Speech Pattern: Clear Voice Loudness: Normal Thought Process: Intact, Goal Oriented Hallucinations: Denies Suicidal Ideation: Denies Homicidal Ideation: Denies Insight/Judgement: Poor Sleep: Poorly Appetite: Poor Muscle strength/Tone: Normal Gait/Station: Normal Psychiatric Findings - Problem List ([place] 1, 2,3) (1) Schizoaffective disorder Current Visit: Yes Status: Chronic Comment: As per patient. (2) Substance-induced anxiety disorder Current Visit: Yes Status: Acute (3) Substance-induced sleep disorder Current Visit: Yes Status: Acute (4) Alcohol dependence with uncomplicated withdrawal Current Visit: Yes Status: Acute (5) Cocaine dependence Current Visit: No Status: Acute Qualifiers: Substance use status: uncomplicated Qualified Code(s): F14.20 - Cocaine dependence, uncomplicated (6) Nicotine dependence Current Visit: No Status: Chronic Qualifiers: Nicotine product type: cigarettes Substance use status: uncomplicated Qualified Code(s): F17.210 - Nicotine dependence, cigarettes, uncomplicated (7) Asthma Current Visit: No Status: Chronic Qualifiers: Asthma severity: mild Asthma persistence: intermittent Asthma complication type: unspecified Qualified Code(s): J45.20 - Mild intermittent asthma, uncomplicated - Initial Treatment Plan Initial Treatment Plan: 1) Continue Celexa 20 mg po daily, Zyprexa 20 mg po HS and Trazadone 50 mg po HS. 2) Continue inpatient detoxification
--- NOTE | 2019-02-14 13:49 | PN ---
[facility] CIWA - CIWA Score Nausea/Vomitin-Mild Nausea/No Vomiting Muscle Tremors: 3 Anxiety: 1-Mildly Anxious Agitation: 0-Normal Activity Paroxysmal Sweats: 3 Orientation: 0-Oriented Tacttile Disturbances: 0-None Auditory Disturbances: 0-None Visual Disturbances: 0-None Headache: 0-None Present CIWA-Ar Total Score: 8 S Progress Note (SOAP) Subjective: sweats tremors Objective: 02/14/19 13:47 A & O x 3 Gait steady not in acute distress Vital Signs Temperature 97.2 F L 02/14/19 13:11 Pulse Rate 87 02/14/19 13:11 Respiratory Rate 18 02/14/19 13:11 Blood Pressure 92/64 02/14/19 13:11 O2 Sat by Pulse Oximetry (%) Laboratory Last Values WBC 4.2 K/mm3 (4.0-10.0) 02/14/19 07:40 RBC 4.38 M/mm3 (4.00-5.60) 02/14/19 07:40 Hgb 14.9 GM/dL (11.7-16.9) 02/14/19 07:40 Hct 43.8 % (35.4-49) 02/14/19 07:40 MCV 100.0 fl (80-96) H 02/14/19 07:40 MCH 34.0 pg (25.7-33.7) H 02/14/19 07:40 MCHC 34.0 g/dl (32.0-35.9) 02/14/19 07:40 RDW 13.0 % (11.9-15.9) 02/14/19 07:40 Plt Count 192 K/MM3 (134-434) 02/14/19 07:40 MPV 8.8 fl (7.5-11.1) 02/14/19 07:40 Sodium 142 mmol/L (136-145) 02/14/19 07:40 Potassium 3.6 mmol/L (3.5-5.1) 02/14/19 07:40 Chloride 105 mmol/L (98-107) 02/14/19 07:40 Carbon Dioxide 28 mmol/L (21-32) 02/14/19 07:40 Anion Gap 9 MMOL/L (8-16) 02/14/19 07:40 BUN 10 mg/dL (7-18) 02/14/19 07:40 Creatinine 1.0 mg/dL (0.55-1.3) 02/14/19 07:40 Est GFR (CKD-EPI)AfAm 99.15 02/14/19 07:40 Est GFR (CKD-EPI)NonAf 85.55 02/14/19 07:40 Random Glucose 119 mg/dL (74-106) H 02/14/19 07:40 Calcium 8.9 mg/dL (8.5-10.1) 02/14/19 07:40 Total Bilirubin 1.2 mg/dL (0.2-1) H 02/14/19 07:40 AST 21 U/L (15-37) 02/14/19 07:40 ALT 15 U/L (13-61) 02/14/19 07:40 Alkaline Phosphatase 90 U/L (45-117) 02/14/19 07:40 Total Protein 6.6 g/dl (6.4-8.2) 02/14/19 07:40 Albumin 3.4 g/dl (3.4-5.0) 02/14/19 07:40 labs noted, high blood glucose Assessment: 02/14/19 13:49 withdrawal sx elevated blood sugar without dx of DM Plan: continue detox Increase po hydration
[2019-02-14] MEDS: traZODone HCL 50 MG TABLET (FP) PO SCH (22:10)
[2019-02-14] MEDS: THIAMINE HCL 100 MG TABLET (FP) PO SCH (22:10)
[2019-02-14] MEDS: chlordiazePOXIDE 5 MG CAPSULE PO SCH (22:10)
[2019-02-14] MEDS: OLANZapine 10 MG TABLET PO SCH (22:10)
[2019-02-15] MEDS: chlordiazePOXIDE 5 MG CAPSULE PO SCH ×2 (05:59→15:20)
[2019-02-15] MEDS: PRENATAL VITAMINS W/ FOLIC ACID TABLET (FP) PO SCH (10:08)
[2019-02-15] MEDS: CITALOPRAM HYDROBROMIDE 20 MG TABLET (FP) PO SCH (10:09)
--- NOTE | 2019-02-15 10:44 | PN ---
S CIWA - CIWA Score Nausea/Vomitin-No Nausea/No Vomiting Muscle Tremors: 2 Anxiety: 1-Mildly Anxious Agitation: 2 Paroxysmal Sweats: 1-Minimal Palms Moist Orientation: 0-Oriented Tacttile Disturbances: 0-None Auditory Disturbances: 0-None Visual Disturbances: 0-None Headache: 0-None Present CIWA-Ar Total Score: 6 [facility] Progress Note (SOAP) Subjective: feeling better today tolerate food and fluid well Objective: 02/15/19 10:44 Vital Signs Temperature 97.4 F L 02/15/19 09:08 Pulse Rate 81 02/15/19 09:08 Respiratory Rate 18 02/15/19 09:08 Blood Pressure 104/70 02/15/19 09:08 O2 Sat by Pulse Oximetry (%) Laboratory Last Values WBC 4.2 K/mm3 (4.0-10.0) 02/14/19 07:40 RBC 4.38 M/mm3 (4.00-5.60) 02/14/19 07:40 Hgb 14.9 GM/dL (11.7-16.9) 02/14/19 07:40 Hct 43.8 % (35.4-49) 02/14/19 07:40 MCV 100.0 fl (80-96) H 02/14/19 07:40 MCH 34.0 pg (25.7-33.7) H 02/14/19 07:40 MCHC 34.0 g/dl (32.0-35.9) 02/14/19 07:40 RDW 13.0 % (11.9-15.9) 02/14/19 07:40 Plt Count 192 K/MM3 (134-434) 02/14/19 07:40 MPV 8.8 fl (7.5-11.1) 02/14/19 07:40 Sodium 142 mmol/L (136-145) 02/14/19 07:40 Potassium 3.6 mmol/L (3.5-5.1) 02/14/19 07:40 Chloride 105 mmol/L (98-107) 02/14/19 07:40 Carbon Dioxide 28 mmol/L (21-32) 02/14/19 07:40 Anion Gap 9 MMOL/L (8-16) 02/14/19 07:40 BUN 10 mg/dL (7-18) 02/14/19 07:40 Creatinine 1.0 mg/dL (0.55-1.3) 02/14/19 07:40 Est GFR (CKD-EPI)AfAm 99.15 02/14/19 07:40 Est GFR (CKD-EPI)NonAf 85.55 02/14/19 07:40 Random Glucose 119 mg/dL (74-106) H 02/14/19 07:40 Calcium 8.9 mg/dL (8.5-10.1) 02/14/19 07:40 Total Bilirubin 1.2 mg/dL (0.2-1) H 02/14/19 07:40 AST 21 U/L (15-37) 02/14/19 07:40 ALT 15 U/L (13-61) 02/14/19 07:40 Alkaline Phosphatase 90 U/L (45-117) 02/14/19 07:40 Total Protein 6.6 g/dl (6.4-8.2) 02/14/19 07:40 Albumin 3.4 g/dl (3.4-5.0) 02/14/19 07:40 RPR Titer Nonreactive (NONREACTIVE) 02/14/19 07:40 lab noted Assessment: 02/15/19 10:44 alcohol withdrawal sx Plan: continue detox
[2019-02-15] MEDS ORDERED: chlordiazePOXIDE HCL 10 MG CAPSULE PO PRN (21:00)
[2019-02-15] MEDS: traZODone HCL 50 MG TABLET (FP) PO SCH (22:03)
[2019-02-15] MEDS: chlordiazePOXIDE HCL 10 MG CAPSULE PO SCH (22:03)
[2019-02-15] MEDS: OLANZapine 10 MG TABLET PO SCH (22:03)
[2019-02-15] MEDS: THIAMINE HCL 100 MG TABLET (FP) PO SCH (22:03)
[2019-02-16] MEDS: chlordiazePOXIDE HCL 10 MG CAPSULE PO SCH ×2 (05:15→12:55)
[2019-02-16] MEDS: PRENATAL VITAMINS W/ FOLIC ACID TABLET (FP) PO SCH (10:02)
[2019-02-16] MEDS: CITALOPRAM HYDROBROMIDE 20 MG TABLET (FP) PO SCH (10:02)
[2019-02-16 12:52] VITALS: BP 125/82; PULSE 97; TEMP 98.8
--- NOTE | 2019-02-16 15:00 | DS ---
[facility] Detox Discharge Summary Admission Date: 02/13/19 Discharge Date: 02/16/19 - History Present History: Alcohol Dependence Additional Comments: [facility] FOR AFTERCARE. PATIENT WAS DISCHARGED FROM DETOX UNIT TO BE TAKEN OVER TO REHAB UNIT IN STABLE MEDICAL CONDITION. Pertinent Past History: Major Depressive Disorder, Nicotine Dependence, Schizoaffective Disorder, History of Seizures (Due to Withdrawal), History Of Blackouts, Asthma. - Physical Exam Results Vital Signs: Vital Signs Temperature 98.8 F 02/16/19 12:51 Pulse Rate 97 H 02/16/19 12:51 Respiratory Rate 18 02/16/19 12:51 Blood Pressure 125/82 02/16/19 12:51 O2 Sat by Pulse Oximetry (%) Pertinent Admission Physical Exam Findings: WITHDRAWAL SYMPTOMS. Laboratory Tests 02/14/19 02/14/19 02/14/19 07:40 07:40 07:40 WBC 4.2 RBC 4.38 Hgb 14.9 Hct 43.8 MCV 100.0 H MCH 34.0 H MCHC 34.0 RDW 13.0 Plt Count 192 MPV 8.8 Sodium 142 Potassium 3.6 Chloride 105 Carbon Dioxide 28 Anion Gap 9 BUN 10 Creatinine 1.0 Est GFR (CKD-EPI)AfAm 99.15 Est GFR (CKD-EPI)NonAf 85.55 Random Glucose 119 H Calcium 8.9 Total Bilirubin 1.2 H AST 21 ALT 15 Alkaline Phosphatase 90 Total Protein 6.6 Albumin 3.4 RPR Titer Nonreactive LABS NOTED. - Treatment Hospital Course: Detox Protocol Followed, Detoxed Safely, Responded well, Discharged Condition Good, Rehab Referral Accepted Patient has Accepted a Rehab Referral to: [facility] ([place], [place]). - Medication Discharge Medications: Ambulatory Orders Escitalopram Oxalate [Lexapro -] 20 mg PO DAILY 06/17/17 Albuterol Sulfate Inhaler - [Ventolin HFA Inhaler -] 2 inh IH Q4H PRN #1 inhaler 08/31/18 Olanzapine [Zyprexa] 20 mg PO HS #30 tablet 09/13/18 - Diagnosis (1) Alcohol dependence with uncomplicated withdrawal Current Visit: Yes Status: Acute (2) Major depressive disorder Current Visit: Yes Status: Chronic (3) Schizoaffective disorder Current Visit: Yes Status: Chronic Qualifiers: Schizoaffective disorder type: unspecified Qualified Code(s): F25.9 - Schizoaffective disorder, unspecified (4) Nicotine dependence Current Visit: Yes Status: Chronic Qualifiers: Nicotine product type: cigarettes Substance use status: uncomplicated Qualified Code(s): F17.210 - Nicotine dependence, cigarettes, uncomplicated (5) Substance-induced anxiety disorder Current Visit: Yes Status: Acute (6) Substance-induced sleep disorder Current Visit: Yes Status: Acute (7) Asthma Current Visit: Yes Status: Chronic Qualifiers: Asthma severity: mild Asthma persistence: intermittent Asthma complication type: unspecified Qualified Code(s): J45.20 - Mild intermittent asthma, uncomplicated - AMA Did Patient Leave Against Medical Advice: No
== END 2019-02-16 02:44 | disposition other institution (70) | DRG 774 ==
LOC: YASAS 14:09 → Y3N 18:37
PROVIDERS: ADMIT Surgery; ATTEND Surgery
PROC: HZ2ZZZZ Detoxification Services for Substance Abuse Treatment (ICD-10-PCS; principal; 2019-02-13)
DX: F10.230 Alcohol dependence with withdrawal, uncomplicated (principal); F14.20 Cocaine dependence, uncomplicated; F17.210 Nicotine dependence, cigarettes, uncomplicated; F19.280 Other psychoactive substance dependence with psychoactive substance-induced anxiety disorder; F19.282 Other psychoactive substance dependence with psychoactive substance-induced sleep disorder; F20.9 Schizophrenia, unspecified; F33.9 Major depressive disorder, recurrent, unspecified; F31.9 Bipolar disorder, unspecified; J45.20 Mild intermittent asthma, uncomplicated; R73.9 Hyperglycemia, unspecified
CPT/HCPCS: 36415; 80053; 85027; 86593

== ENCOUNTER 2019-02-16 14:52 | Inpatient (IN) | payer OTHER ==
[2019-02-16] MEDS ORDERED: MAGNESIUM CITRATE 300 ML BOTTLE PO PRN (15:03)
[2019-02-16] MEDS ORDERED: NICOTINE POLACRILEX 2 MG GUM BUC PRN (15:03)
[2019-02-16] MEDS ORDERED: guaiFENesin 200 MG/10 ML 10 ML UNIT-DOSE CUPS PO PRN (15:03)
[2019-02-16] MEDS ORDERED: P-EPHED 60MG/TRIPROLIDI 2.5MG TABLET PO PRN (15:03)
[2019-02-16] MEDS ORDERED: MENTHOL/PHENOL 1 EACH UD MM PRN (15:03)
[2019-02-16] MEDS ORDERED: ACETAMINOPHEN 325 MG TABLET (FP) PO PRN (15:03)
[2019-02-16] MEDS ORDERED: IBUPROFEN 400 MG TABLET (FP) PO PRN (15:03)
[2019-02-16] MEDS ORDERED: LOPERAMIDE HCL 2 MG CAPSULE PO PRN (15:03)
[2019-02-16] MEDS ORDERED: MAG HYDROX/AL HYDROX/SIMETH 30 ML UNIT-DOSE CUP PO PRN (15:03)
[2019-02-16] MEDS ORDERED: MAGNESIUM HYDROX 2400MG/30ML ORAL SUSPENSION 30 ML CUP PO PRN (15:03)
[2019-02-16] MEDS ORDERED: ALBUTEROL SO4 8 GM HFA INHALER IH PRN (15:04)
--- NOTE | 2019-02-16 15:06 | HP ---
[facility] Rehab Assess/Revision - Admission History Admitted to Rehab from: [facility] Date of Admission to Rehab: 02/16/2019 - Vital signs Vital Signs: NOTED; STABLE. - Findings Detox History & Physical reviewed: Yes Concur with findings: Yes Comments/Additional Findings: PATIENT'S MEDICAL / MEDICATION HISTORY REVIEWED PRIOR TO DISCHARGE FROM DETOX UNIT. PATIENT WAS DISCHARGED FROM DETOX UNIT TO BE TAKEN OVER TO REHAB UNIT IN STABLE MEDICAL CONDITION. Inpatient Rehab Admission - Rehab Decision to Admit Inpatient rehab admission?: Yes - Initial Determination Are CD services needed?: Yes Free of communicable disease: Yes Not in need of hospitalization: Yes - Rehab Admission Criteria Previous failed treatment: Yes Poor recovery environment: Yes Comorbidities: Yes Lacks judgement: No Patient is meeting Inpatient Rehab admission criteria:: Yes
[2019-02-16] MEDS: THIAMINE HCL 100 MG TABLET (FP) PO SCH (21:16)
[2019-02-16] MEDS ORDERED: MELATONIN 5 MG TABLETS PO PRN (22:00)
[2019-02-17] MEDS: PRENATAL VITAMINS W/ FOLIC ACID TABLET (FP) PO SCH (10:03)
--- NOTE | 2019-02-17 13:40 | CONSULT ---
[facility] Psychiatric Consult - Data Date of interview: 02/17/19 Admission source: 3N Identifying data: Mr Monsivais is a 53 years old single Black male, father of 2 children, unnemployed on public assistance, domiciled seeking detox treatment for alcohol and cocaine Substance Abuse History: Reports history of alcohol and crack cocaine use. Refer to addiction counselor's summary for further information Medical History: Significant for bronchial asthma. Smokes 3 cigarettes daily Psychiatric History: Patient recently seen by insurance underwriter sales on 02/14/19 while in detox. History remains consistent. Reports that his first psychiatric treatment was in 1984 when he was admitted to [facility] for command auditory hallucinations and suicidal ideations. He was diagnosed with Bipolar Schizophrenia and treated with Zyprexa and Lexapro. Reports multiple subsequent admissions to various institutions([facility], [facility], [facility], [place], [facility]). Most recent one was in 2017 to [facility] for depression and suicidal. Reports receiving outpatient treatment at [facility] and he is prescribed Celexa 20 mg po daily, Zyprexa 20 mg po HS and Trazadone 50 mg po HS. As mentioned previously, he was seen by insurance underwriter sales on 01/14 while in detox and he was continue on Celexa 20 mg/day, Zyprexa 20 mg/hs and Trazadone 50 mg/hs. Denies history of suicidal attempt. Denies experiencing psychotic, manic or depressive symptoms, S/H ideations. However, reports feeling anxious and sleeping poorly Physical/Sexual Abuse/Trauma History: Denies history of verbal, physical or sexual abuse as well as DV relationship. No service Additional Comment: Denies criminal history Mental Status Exam - Mental Status Exam Alert and Oriented to: Time, Place, Person Cognitive Function: Fair Patient Appearance: Well Groomed Mood: Hopeful, Euthymic Affect: Appropriate Patient Behavior: Cooperative Speech Pattern: Clear Voice Loudness: Normal Thought Process: Intact Thought Disorder: Not Present Hallucinations: Denies Suicidal Ideation: Denies Homicidal Ideation: Denies Insight/Judgement: Fair Sleep: Poorly Appetite: Good Muscle strength/Tone: Normal Gait/Station: Normal Psychiatric Findings - Problem List ([place] 1, 2,3) (1) Schizoaffective disorder Current Visit: No Status: Chronic Qualifiers: Schizoaffective disorder type: unspecified Qualified Code(s): F25.9 - Schizoaffective disorder, unspecified Comment: As per patient. (2) Bipolar disorder Current Visit: No Status: Ruled-out (3) Substance-induced sleep disorder Current Visit: No Status: Acute (4) Alcohol dependence Current Visit: No Status: Acute (5) Cocaine dependence Current Visit: No Status: Chronic Qualifiers: Substance use status: uncomplicated Qualified Code(s): F14.20 - Cocaine dependence, uncomplicated (6) Nicotine dependence Current Visit: No Status: Chronic Qualifiers: Nicotine product type: cigarettes Substance use status: uncomplicated Qualified Code(s): F17.210 - Nicotine dependence, cigarettes, uncomplicated (7) Asthma Current Visit: No Status: Chronic Qualifiers: Asthma severity: mild Asthma persistence: intermittent Asthma complication type: unspecified Qualified Code(s): J45.20 - Mild intermittent asthma, uncomplicated - Initial Treatment Plan Initial Treatment Plan: 1) Continue Celexa 20 mg po daily, Zyprexa 20 mg po HS and Trazadone 50 mg po HS. 2) Continue inpatient rehabilitation
[2019-02-17] MEDS: ESCITALOPRAM OXALATE 20 MG TABLET (FP) PO SCH (14:50)
[2019-02-17] MEDS: THIAMINE HCL 100 MG TABLET (FP) PO SCH (21:16)
[2019-02-17] MEDS: OLANZapine 10 MG TABLET PO SCH (21:17)
[2019-02-17] MEDS: traZODone HCL 50 MG TABLET (FP) PO SCH (21:17)
[2019-02-18] MEDS: ESCITALOPRAM OXALATE 20 MG TABLET (FP) PO SCH (09:58)
[2019-02-18] MEDS: PRENATAL VITAMINS W/ FOLIC ACID TABLET (FP) PO SCH (09:58)
[2019-02-18] MEDS: OLANZapine 10 MG TABLET PO SCH (21:23)
[2019-02-18] MEDS: THIAMINE HCL 100 MG TABLET (FP) PO SCH (21:23)
[2019-02-18] MEDS: traZODone HCL 50 MG TABLET (FP) PO SCH (21:24)
[2019-02-19] MEDS: PRENATAL VITAMINS W/ FOLIC ACID TABLET (FP) PO SCH (10:09)
[2019-02-19] MEDS: ESCITALOPRAM OXALATE 20 MG TABLET (FP) PO SCH (10:10)
[2019-02-19] MEDS: THIAMINE HCL 100 MG TABLET (FP) PO SCH (21:20)
[2019-02-19] MEDS: OLANZapine 10 MG TABLET PO SCH (21:20)
[2019-02-19] MEDS: traZODone HCL 50 MG TABLET (FP) PO SCH (21:20)
[2019-02-20] MEDS: PRENATAL VITAMINS W/ FOLIC ACID TABLET (FP) PO SCH (09:50)
[2019-02-20] MEDS: ESCITALOPRAM OXALATE 20 MG TABLET (FP) PO SCH (09:50)
[2019-02-20] MEDS: OLANZapine 10 MG TABLET PO SCH (21:29)
[2019-02-20] MEDS: THIAMINE HCL 100 MG TABLET (FP) PO SCH (21:29)
[2019-02-20] MEDS: traZODone HCL 50 MG TABLET (FP) PO SCH (21:29)
[2019-02-21] MEDS: PRENATAL VITAMINS W/ FOLIC ACID TABLET (FP) PO SCH (09:42)
[2019-02-21] MEDS: ESCITALOPRAM OXALATE 20 MG TABLET (FP) PO SCH (09:42)
[2019-02-21] MEDS: traZODone HCL 50 MG TABLET (FP) PO SCH (21:11)
[2019-02-21] MEDS: THIAMINE HCL 100 MG TABLET (FP) PO SCH (21:11)
[2019-02-21] MEDS: OLANZapine 10 MG TABLET PO SCH (21:13)
[2019-02-22] MEDS: PRENATAL VITAMINS W/ FOLIC ACID TABLET (FP) PO SCH (10:03)
[2019-02-22] MEDS: ESCITALOPRAM OXALATE 20 MG TABLET (FP) PO SCH (10:03)
[2019-02-22] MEDS: OLANZapine 10 MG TABLET PO SCH (21:10)
[2019-02-22] MEDS: THIAMINE HCL 100 MG TABLET (FP) PO SCH (21:10)
[2019-02-22] MEDS: traZODone HCL 50 MG TABLET (FP) PO SCH (21:10)
[2019-02-23] MEDS: ESCITALOPRAM OXALATE 20 MG TABLET (FP) PO SCH (10:26)
[2019-02-23] MEDS: PRENATAL VITAMINS W/ FOLIC ACID TABLET (FP) PO SCH (10:26)
[2019-02-23] MEDS: THIAMINE HCL 100 MG TABLET (FP) PO SCH (21:16)
[2019-02-23] MEDS: OLANZapine 10 MG TABLET PO SCH (21:16)
[2019-02-23] MEDS: traZODone HCL 50 MG TABLET (FP) PO SCH (21:16)
[2019-02-24] MEDS: PRENATAL VITAMINS W/ FOLIC ACID TABLET (FP) PO SCH (09:46)
[2019-02-24] MEDS: ESCITALOPRAM OXALATE 20 MG TABLET (FP) PO SCH (09:46)
[2019-02-24] MEDS: THIAMINE HCL 100 MG TABLET (FP) PO SCH (21:15)
[2019-02-24] MEDS: OLANZapine 10 MG TABLET PO SCH (21:15)
[2019-02-24] MEDS: traZODone HCL 50 MG TABLET (FP) PO SCH (21:15)
[2019-02-25] MEDS: ESCITALOPRAM OXALATE 20 MG TABLET (FP) PO SCH (10:05)
[2019-02-25] MEDS: PRENATAL VITAMINS W/ FOLIC ACID TABLET (FP) PO SCH (10:05)
[2019-02-25] MEDS: THIAMINE HCL 100 MG TABLET (FP) PO SCH (21:21)
[2019-02-25] MEDS: traZODone HCL 50 MG TABLET (FP) PO SCH (21:21)
[2019-02-25] MEDS: OLANZapine 10 MG TABLET PO SCH (21:21)
[2019-02-26] MEDS: ESCITALOPRAM OXALATE 20 MG TABLET (FP) PO SCH (09:58)
[2019-02-26] MEDS: PRENATAL VITAMINS W/ FOLIC ACID TABLET (FP) PO SCH (09:58)
[2019-02-26] MEDS: THIAMINE HCL 100 MG TABLET (FP) PO SCH (21:16)
[2019-02-26] MEDS: OLANZapine 10 MG TABLET PO SCH (21:16)
[2019-02-26] MEDS: traZODone HCL 50 MG TABLET (FP) PO SCH (21:16)
[2019-02-27] MEDS: PRENATAL VITAMINS W/ FOLIC ACID TABLET (FP) PO SCH (09:49)
[2019-02-27] MEDS: ESCITALOPRAM OXALATE 20 MG TABLET (FP) PO SCH (09:49)
[2019-02-27] MEDS: traZODone HCL 50 MG TABLET (FP) PO SCH (21:21)
[2019-02-27] MEDS: OLANZapine 10 MG TABLET PO SCH (21:21)
[2019-02-27] MEDS: THIAMINE HCL 100 MG TABLET (FP) PO SCH (21:22)
[2019-02-28] MEDS: ESCITALOPRAM OXALATE 20 MG TABLET (FP) PO SCH (10:01)
[2019-02-28] MEDS: PRENATAL VITAMINS W/ FOLIC ACID TABLET (FP) PO SCH (10:01)
[2019-02-28] MEDS: traZODone HCL 50 MG TABLET (FP) PO SCH (21:24)
[2019-02-28] MEDS: OLANZapine 10 MG TABLET PO SCH (21:24)
[2019-02-28] MEDS: THIAMINE HCL 100 MG TABLET (FP) PO SCH (21:24)
[2019-03-01] MEDS: ESCITALOPRAM OXALATE 20 MG TABLET (FP) PO SCH (10:27)
[2019-03-01] MEDS: PRENATAL VITAMINS W/ FOLIC ACID TABLET (FP) PO SCH (10:27)
--- NOTE | 2019-03-01 17:16 | PN ---
[facility] Progress Note Note: Patient is scheduled for discharge tomorrow. Scripts for 30 days supply of medications(Lexapro 20 mg/day, Zyprexa 20 mg/HS, Trazadone 50 mg/hs) will be electronically transmitted to [facility] at [address] [place] [address] [place] [address]
[2019-03-01] MEDS: OLANZapine 10 MG TABLET PO SCH (21:09)
[2019-03-01] MEDS: THIAMINE HCL 100 MG TABLET (FP) PO SCH (21:09)
[2019-03-01] MEDS: traZODone HCL 50 MG TABLET (FP) PO SCH (21:09)
[2019-03-02 06:45] VITALS: BP 131/80; PULSE 81; TEMP 98.1
--- NOTE | 2019-03-02 09:32 | PN ---
[facility] Progress Note (SOAP) Subjective: PT COMPLETED REHAB AND DISCHARGED TODAY. PT MET WITH HIS COUNSELOR MS STEVENSONAdri JAIME AND PT WILL BE RETURNING TO HIS PROGRAM AT [facility] [place] [facility] FOR CD AFTERCARE AND PCP DR. SILVER AT [facility] FOR MEDICAL MANAGEMENT. PT IS ALERT O X 3. DENIES S/H/I. Objective: 03/02/19 09:29 Vital Signs - 24 hr 03/02/19 03/02/19 03/02/19 00:30 03:30 06:44 Temperature 98.1 F Pulse Rate 81 Respiratory 18 18 18 Rate Blood Pressure 131/80 Assessment: 03/02/19 09:29 NAD MEDICALLY STABLE Plan: FOLLOW UP WITH CD AFTERCARE RECOMMENDED. FOLLOW UP WITH MEDICAL MANAGEMENT WITH PCP WITHIN 1 WEEK AFTERCARE.
[2019-03-02] MEDS: ESCITALOPRAM OXALATE 20 MG TABLET (FP) PO SCH (09:40)
[2019-03-02] MEDS: PRENATAL VITAMINS W/ FOLIC ACID TABLET (FP) PO SCH (09:40)
== END 2019-03-02 09:45 | disposition home or self-care (01) | DRG 772 ==
LOC: YASAS 14:52 → Y5N 14:54
PROVIDERS: ADMIT Neuromusculoskeletal Medicine & OMM; ATTEND Neuromusculoskeletal Medicine & OMM
PROC: HZ42ZZZ Group Counseling for Substance Abuse Treatment, Cognitive-Behavioral (ICD-10-PCS; principal; 2019-02-16)
DX: F10.20 Alcohol dependence, uncomplicated (principal); F14.20 Cocaine dependence, uncomplicated; F17.210 Nicotine dependence, cigarettes, uncomplicated; F25.9 Schizoaffective disorder, unspecified; F19.282 Other psychoactive substance dependence with psychoactive substance-induced sleep disorder; J45.20 Mild intermittent asthma, uncomplicated

== ENCOUNTER 2019-08-14 09:44 | Inpatient (IN) | payer OTHER ==
[2019-08-14 10:30] VITALS: BMI 20.8
--- NOTE | 2019-08-14 11:03 | HP ---
CIWA Score Nausea/Vomitin Muscle Tremors: 2 Anxiety: 1-Mildly Anxious Agitation: 1-Slight > Activity Paroxysmal Sweats: 2 Orientation: 0-Oriented Tacttile Disturbances: 1-Very Mild Itch/Numbness Auditory Disturbances: 1-Very Mild Visual Disturbances: 1-Very Mild Sensitivity Headache: 1-Very Mild CIWA-Ar Total Score: 13 - Admission Criteria OASAS Guidelines: Admission for Medically Managed Detox: Requires at least one of the followin. CIWA greater than 12 2. Seizures within the past 24 hours 3. Delirium tremens within the past 24 hours 4. Hallucinations within the past 24 hours 5. Acute intervention needed for co occurring medical disorder 6. Acute intervention needed for co occurring psychiatric disorder 7. Severe withdrawal that cannot be handled at a lower level of care (continued vomiting, continued diarrhea, abnormal vital signs) requiring intravenous medication and/or fluids 8. Patient presents the following: CIWA greater than 12 Admission Criteria Met: Admission criteria met Admitting History and Physical - Smoking History Smoking history: Current some day smoker Have you smoked in the past 12 months: No Aproximately how many cigarettes per day: 3 If you are a former smoker, when did you quit?: 09/26 - Alcohol/Substance Use Hx Alcohol Use: Yes (2 six packs daily) Admission [facility] Chief Complaint: I am here to seek help and make myself better. Allergies/Adverse Reactions: Allergies Allergy/AdvReac Type Severity Reaction Status Date / Time No Known Drug Allergies Allergy Verified 08/14/19 10:17 History of Present Illness: Patient is a 53 year old man who presents for detox from alcohol. His last treatment was in February of this year following which he went to rehab. He denies alcohol related seizures but reports blackouts, last episode a couple of days ago. Exam Limitations: No Limitations - Ebola screening Have you traveled outside of the country in the last 21 days: No Have you had contact with anyone from an Ebola affected area: No Have you been sick,other than usual withdrawal symptoms: No Do you have a fever: No - Review of Systems Constitutional: Chills, Loss of Appetite, Unintentional Wgt. Loss EENT: reports: No Symptoms Reported Respiratory: reports: No Symptoms reported Cardiac: reports: No Symptoms Reported GI: reports: Diarrhea, Nausea, Poor Appetite, Poor Fluid Intake, Abdominal cramping : reports: No Symptoms Reported Musculoskeletal: reports: Back Pain, Joint Pain (both hips), Muscle Pain, Muscle Weakness Integumentary: reports: Dryness Neuro: reports: Headache, Numbness, Tremors Endocrine: reports: No Symptoms Reported Hematology: reports: No Symptoms Reported Psychiatric: reports: Anxious, Depressed Other Systems: Reviewed and Negative Patient History - Patient Medical History Hx Anemia: No Hx Asthma: Yes Hx Chronic Obstructive Pulmonary Disease (COPD): No Hx Cancer: No Hx Cardiac Disorders: No Hx Congestive Heart Failure: No Hx Hypertension: No Hx Hypercholesterolemia: No Hx Pacemaker: No HX Cerebrovascular Accident: No Hx Seizures: No Hx Dementia: No Hx Diabetes: No Hx Gastrointestinal Disorders: No Hx Liver Disease: No Hx Genitourinary Disorders: No Hx Sexually Transmitted Disorders: No Hx Renal Disease (ESRD): No Hx Thyroid Disease: No Hx Human Immunodeficiency Virus (HIV): No Hx Hepatitis C: No Hx Depression: Yes Hx Suicide Attempt: Yes (attempted to jump off a roof last year) Hx Bipolar Disorder: Yes Hx Schizophrenia: Yes - Patient Surgical History Past Surgical History: No Anesthesia Reaction: No - PPD History Previous Implant?: Yes Documented Results: Negative w/proof Implanted On Prior R Admission?: Yes Date: 08/30/18 Results: 0 mm PPD to be Administered?: No - Smoking Cessation Smoking history: Former smoker Have you smoked in the past 12 months: Yes Aproximately how many cigarettes per day: 20 If you are a former smoker, when did you quit?: may Cigars Per Day: 0 Hx Chewing Tobacco Use: No Initiated information on smoking cessation: Yes 'Breaking Loose' booklet given: 08/14/19 - Substances abused Alcohol Substance route: Oral Frequency: Daily Amount used: 1 PT RUM, (2)6 PK BEER 16oz Age of first use: 20 Date of last use: 08/14/19 Crack Substance route: Smoking Frequency: Daily Amount used: $100 Age of first use: 20 Date of last use: 02/13/19 Cocaine Substance route: Inhalation Frequency: 3-6 times per week Amount used: $80 Age of first use: 16 Date of last use: 08/14/19 Admission Physical Exam BHS - Vital Signs Vital Signs: Vital Signs - 24 hr 08/14/19 10:25 Temperature 97.2 F L Pulse Rate 98 H Respiratory 18 Rate Blood Pressure 115/79 - Physical General Appearance: Yes: No Apparent Distress HEENTM: Yes: Hearing grossly Normal, Normocephalic, Normal Voice, BJ, Pharynx Normal, Tm's normal Respiratory: Yes: Chest Non-Tender, Lungs Clear, Normal Breath Sounds, No Respiratory Distress, No Accessory Muscle Use Neck: Yes: No masses,lesions,Nodules, Supple Breast: Yes: Breast Exam Deferred Cardiology: Yes: Regular Rhythm, Regular Rate, S1, S2 Abdominal: Yes: Normal Bowel Sounds, Non Tender, Soft Genitourinary: Yes: Within Normal Limits Back: Yes: Normal Inspection Musculoskeletal: Yes: full range of Motion, Gait Steady, Pelvis Stable Extremities: Yes: Non-Tender, Tremors Neurological: Yes: geodesist II-XII NML intact, Fully Oriented, Alert, Normal Mood/ Affect, Normal Response Integumentary: Yes: Dry Lymphatic: Yes: Within Normal Limits - Diagnostic (1) Alcohol dependence with uncomplicated withdrawal Current Visit: Yes Status: Acute (2) Cocaine dependence Current Visit: Yes Status: Acute Qualifiers: Substance use status: uncomplicated Qualified Code(s): F14.20 - Cocaine dependence, uncomplicated (3) Nicotine dependence Current Visit: No Status: Chronic Qualifiers: Nicotine product type: cigarettes Substance use status: uncomplicated Qualified Code(s): F17.210 - Nicotine dependence, cigarettes, uncomplicated Cleared for Admission S - Detox or Rehab [facility] Level of Care: Medically Managed Claeared for Rehab Admission: No Breathalyzer - Breathalyzer Breathalyzer: 0.076 Urine Drug Screen - Test Device Lot number: [id number] Expiration date: 04/14/21 - Control Is test valid?: Yes - Results Drug screen NEGATIVE: No Urine drug screen results: [facility] Inpatient Rehab Admission - Rehab Decision to Admit Inpatient rehab admission?: No
[2019-08-14] MEDS ORDERED: MAGNESIUM HYDROX 2400MG/30ML ORAL SUSPENSION 30 ML CUP PO PRN (11:19)
[2019-08-14] MEDS ORDERED: IBUPROFEN 400 MG TABLET (FP) PO PRN (11:19)
[2019-08-14] MEDS ORDERED: NICOTINE POLACRILEX 2 MG GUM BUC PRN (11:19)
[2019-08-14] MEDS ORDERED: hydrOXYzine PAMOATE 25 MG CAPSULE (FP) PO PRN (11:19)
[2019-08-14] MEDS ORDERED: METHOCARBAMOL 500 MG TABLET PO PRN (11:19)
[2019-08-14] MEDS ORDERED: LORazepam 1 MG TABLET PO PRN (11:19)
[2019-08-14] MEDS ORDERED: MAGNESIUM CITRATE 300 ML BOTTLE PO PRN (11:19)
[2019-08-14] MEDS ORDERED: BISMUTH SUBSALICYLATE 524 MG/30 ML UD PO PRN (11:19)
[2019-08-14] MEDS ORDERED: MAG HYDROX/AL HYDROX/SIMETH 30 ML UNIT-DOSE CUP PO PRN (11:19)
[2019-08-14] MEDS ORDERED: ACETAMINOPHEN 325 MG TABLET (FP) PO PRN ×2 (11:19)
[2019-08-14] MEDS ORDERED: ONDANSETRON *ODT* 4 MG TABLET SL PRN (11:19)
[2019-08-14] MEDS ORDERED: MENTHOL/PHENOL 1 EACH UD MM PRN (11:19)
[2019-08-14] MEDS ORDERED: ALBUTEROL SO4 8 GM HFA INHALER IH PRN (11:22)
[2019-08-14] MEDS ORDERED: LORazepam 2 MG TABLET PO ONE (11:30)
[2019-08-14] MEDS: NICOTINE 7 MG/24 HOURS TOPICAL PATCH TD SCH (12:13)
[2019-08-14] MEDS: LORazepam 2 MG TABLET PO SCH ×2 (18:19→22:45)
[2019-08-14] MEDS ORDERED: traZODone HCL 100 MG TABLET (FP) PO PRN (22:00)
[2019-08-14] MEDS: THIAMINE HCL 100 MG TABLET (FP) PO SCH (22:45)
[2019-08-15] MEDS: LORazepam 2 MG TABLET PO SCH ×4 (05:57→22:28)
[2019-08-15] MEDS: NICOTINE 7 MG/24 HOURS TOPICAL PATCH TD SCH (10:53)
[2019-08-15] MEDS: PRENATAL VITAMINS W/ FOLIC ACID TABLET (FP) PO SCH (10:55)
--- NOTE | 2019-08-15 11:46 | CONSULT ---
[facility] Psychiatric Consult - Data Date of interview: 08/15/19 Admission source: [facility] Identifying data: Patient is a 53 year old single male, father of two, unemployed, domiciled, and is supported by [facility]. This is one of multiple admissions for patient. Patient admitted to for alcohol and cocaine dependence. Substance Abuse History: Smoking Cessation. Smoking history: Former smoker. Have you smoked in the past 12 months: Yes. Aproximately how many cigarettes per day: 20. If you are a former smoker, when did you quit?: may. Cigars Per Day: 0. Hx Chewing Tobacco Use: No. Initiated information on smoking cessation: Yes. 'Breaking Loose' booklet given: 08/14/19. - Substances abused. Alcohol. Substance route: Oral. Frequency: Daily. Amount used: 1 PT RUM, (2)6 PK BEER 16oz. Age of first use: 20. Date of last use: 08/14/19. Crack. Substance route: Smoking. Frequency: Daily. Amount used: $100. Age of first use: 20. Date of last use: 02/13/19. Cocaine. Substance route: Inhalation. Frequency: 3-6 times per week. Amount used: $80. Age of first use: 16. Date of last use: 08/14/19 Medical History: Significant for bronchial asthma Psychiatric History: Patient's first psychiatric contact occured at 18 years of age after he was admitted to [facility] after endorsing voices telling him to hurt himself. He was diagnosed with schizophrenia and treated with lexapro and zyprexa. Througout the years Mr. Monsivais has been hospitalized at multiple hospitals including [facility], [facility], and [facility] ([facility] His most recent psychiatric hospitalization was at [facility] 1.5 years ago after experiencing disturbances of auditory hallucinations. Mr. Monsivais also reports symtoms of paranoid ideation, thinking people are out to kill him when off his medications. Patient reports history of three suicide attempts (overdose, jumping in front of a moving vehicle in a front of a train). Mr. Monsivais is not currently followed by a psychiatric provider. States that he most recently received a refill of celexa 20mg + Zyprexa 20mg + Trazodone 50mg from [facility] but has not taken the medications in approximately one week. At present, patient denies auditory/ visual hallucinations, suicidal/homicidal ideation. Physical/Sexual Abuse/Trauma History: denies. Mental Status Exam - Mental Status Exam Alert and Oriented to: Time, Place, Person Cognitive Function: Good Mood: Withdrawn Affect: Mood Congruent Patient Behavior: Appropriate, Cooperative Speech Pattern: Appropriate Voice Loudness: Normal Thought Process: Goal Oriented Thought Disorder: Not Present Hallucinations: Denies Suicidal Ideation: Denies Homicidal Ideation: Denies Insight/Judgement: Poor Sleep: Poorly Appetite: Fair Muscle strength/Tone: Normal Gait/Station: Normal Psychiatric Findings - Problem List ([place] 1, 2,3) (1) Alcohol dependence with uncomplicated withdrawal Current Visit: Yes Status: Acute (2) Cocaine dependence Current Visit: Yes Status: Acute Qualifiers: Substance use status: uncomplicated Qualified Code(s): F14.20 - Cocaine dependence, uncomplicated (3) Substance-induced sleep disorder Current Visit: Yes Status: Acute (4) Schizoaffective disorder Current Visit: Yes Status: Chronic Qualifiers: Schizoaffective disorder type: unspecified Qualified Code(s): F25.9 - Schizoaffective disorder, unspecified Comment: As per patient. - Initial Treatment Plan Initial Treatment Plan: Psychoeducation provided. Detoxification in progress. Will order Celexa 20mg + Zyprexa 20mg + Trazodone 50mg HS PRN ( patient's request). Benefits and side effects discussed. Verbal consent given.
[2019-08-15 12:47] LABS: HEMATOCRIT 41.6 % (35.4-49); HEMOGLOBIN 14.3 GM/dL (11.7-16.9); MCH 34.9 pg (25.7-33.7); MCHC 34.2 g/dl (32.0-35.9); MEAN CELL VOLUME 101.9 fl (80-96); MEAN PLT VOLUME 8.7 fl (7.5-11.1); PLATELET COUNT 192 K/MM3 (134-434); RBC 4.09 M/mm3 (4.00-5.60); RDW 13.7 % (11.9-15.9); WHITE BLOOD COUNT 4.3 K/mm3 (4.0-10.0)
[2019-08-15 12:55] LABS: ALBUMIN 3.4 g/dl (3.4-5.0); BILIRUBIN,TOTAL 0.9 mg/dL (0.2-1); CALCIUM 8.4 mg/dL (8.5-10.1); CREATININE 0.8 mg/dL (0.55-1.3); POTASSIUM 4.1 mmol/L (3.5-5.1); TOT PROT 6.1 g/dl (6.4-8.2)
--- NOTE | 2019-08-15 13:02 | PN ---
S CIWA - CIWA Score Nausea/Vomitin-No Nausea/No Vomiting Muscle Tremors: 3 Anxiety: 3 Agitation: 3 Paroxysmal Sweats: 3 Orientation: 0-Oriented Tacttile Disturbances: 0-None Auditory Disturbances: 0-None Visual Disturbances: 0-None Headache: 0-None Present CIWA-Ar Total Score: 12 S Progress Note (SOAP) Subjective: sweats body aches interrupted sleep agitation Objective: 08/15/19 13:01 Vital Signs Temperature 96.9 F L 08/15/19 09:55 Pulse Rate 102 H 08/15/19 09:55 Respiratory Rate 18 08/15/19 09:55 Blood Pressure 120/76 08/15/19 09:55 O2 Sat by Pulse Oximetry (%) Laboratory Tests 08/15/19 08/15/19 07:50 07:50 WBC 4.3 RBC 4.09 Hgb 14.3 Hct 41.6 MCV 101.9 H MCH 34.9 H MCHC 34.2 RDW 13.7 Plt Count 192 MPV 8.7 Sodium 143 Potassium 4.1 Chloride 109 H Carbon Dioxide 29 Anion Gap 5 L BUN 14.0 Creatinine 0.8 Est GFR (CKD-EPI)AfAm 118.20 Est GFR (CKD-EPI)NonAf 101.99 Random Glucose 82 Calcium 8.4 L Total Bilirubin 0.9 AST 26 ALT 27 Alkaline Phosphatase 101 Total Protein 6.1 L Albumin 3.4 labs noted aaox3 ambulating no acute distress Assessment: 08/15/19 13:01 withdrawals Plan: continue detox increase fluids
[2019-08-15] MEDS ORDERED: traZODone HCL 50 MG TABLET (FP) PO PRN (22:00)
[2019-08-15] MEDS: OLANZapine 10 MG TABLET PO SCH (22:28)
[2019-08-15] MEDS: THIAMINE HCL 100 MG TABLET (FP) PO SCH (22:28)
[2019-08-15] MEDS: MELATONIN 5 MG TABLETS PO PRN (22:29)
[2019-08-16] MEDS: LORazepam 1 MG TABLET PO SCH ×4 (05:14→22:17)
[2019-08-16] MEDS: NICOTINE 7 MG/24 HOURS TOPICAL PATCH TD SCH (10:11)
[2019-08-16] MEDS: PRENATAL VITAMINS W/ FOLIC ACID TABLET (FP) PO SCH (10:11)
--- NOTE | 2019-08-16 10:28 | PN ---
[facility] CIWA - CIWA Score Nausea/Vomitin-No Nausea/No Vomiting Muscle Tremors: 3 Anxiety: 2 Agitation: 3 Paroxysmal Sweats: 2 Orientation: 0-Oriented Tacttile Disturbances: 0-None Auditory Disturbances: 0-None Visual Disturbances: 0-None Headache: 0-None Present CIWA-Ar Total Score: 10 S Progress Note (SOAP) Subjective: diarrhea sweats body aches Objective: 08/16/19 10:28 Vital Signs Temperature 97.3 F L 08/16/19 09:23 Pulse Rate 82 08/16/19 09:23 Respiratory Rate 18 08/16/19 09:23 Blood Pressure 124/92 08/16/19 09:23 O2 Sat by Pulse Oximetry (%) Laboratory Tests 08/15/19 08/15/19 08/15/19 07:50 07:50 07:50 WBC 4.3 RBC 4.09 Hgb 14.3 Hct 41.6 MCV 101.9 H MCH 34.9 H MCHC 34.2 RDW 13.7 Plt Count 192 MPV 8.7 Sodium 143 Potassium 4.1 Chloride 109 H Carbon Dioxide 29 Anion Gap 5 L BUN 14.0 Creatinine 0.8 Est GFR (CKD-EPI)AfAm 118.20 Est GFR (CKD-EPI)NonAf 101.99 Random Glucose 82 Calcium 8.4 L Total Bilirubin 0.9 AST 26 ALT 27 Alkaline Phosphatase 101 Total Protein 6.1 L Albumin 3.4 HIV 1&2 Antibody Screen Negative HIV P24 Antigen Negative labs noted aaox3 ambulating no acute distress Assessment: 08/16/19 10:28 withdrawals Plan: continue detox increase fluids pepto prn
[2019-08-16] MEDS: THIAMINE HCL 100 MG TABLET (FP) PO SCH (22:17)
[2019-08-16] MEDS: OLANZapine 10 MG TABLET PO SCH (22:17)
[2019-08-16] MEDS: MELATONIN 5 MG TABLETS PO PRN (22:17)
[2019-08-17] MEDS ORDERED: LORazepam 0.5 MG TABLET PO PRN
[2019-08-17] MEDS: LORazepam 0.5 MG TABLET PO SCH ×4 (05:26→22:10)
[2019-08-17] MEDS: NICOTINE 7 MG/24 HOURS TOPICAL PATCH TD SCH (10:34)
[2019-08-17] MEDS: PRENATAL VITAMINS W/ FOLIC ACID TABLET (FP) PO SCH (10:34)
--- NOTE | 2019-08-17 10:40 | PN ---
S CIWA - CIWA Score Nausea/Vomitin-No Nausea/No Vomiting Muscle Tremors: 1-None Visible, but [place] Anxiety: 1-Mildly Anxious Agitation: 0-Normal Activity Paroxysmal Sweats: 1-Minimal Palms Moist Orientation: 0-Oriented Tacttile Disturbances: 0-None Auditory Disturbances: 0-None Visual Disturbances: 0-None Headache: 0-None Present CIWA-Ar Total Score: 3 BHS Progress Note (SOAP) Subjective: feeling better little sweats Objective: 08/17/19 10:39 Vital Signs Temperature 97.9 F 08/17/19 09:26 Pulse Rate 82 08/17/19 09:26 Respiratory Rate 16 08/17/19 09:26 Blood Pressure 123/80 08/17/19 09:26 O2 Sat by Pulse Oximetry (%) Laboratory Tests 08/15/19 08/15/19 08/15/19 07:50 07:50 07:50 WBC 4.3 RBC 4.09 Hgb 14.3 Hct 41.6 MCV 101.9 H MCH 34.9 H MCHC 34.2 RDW 13.7 Plt Count 192 MPV 8.7 Sodium 143 Potassium 4.1 Chloride 109 H Carbon Dioxide 29 Anion Gap 5 L BUN 14.0 Creatinine 0.8 Est GFR (CKD-EPI)AfAm 118.20 Est GFR (CKD-EPI)NonAf 101.99 Random Glucose 82 Calcium 8.4 L Total Bilirubin 0.9 AST 26 ALT 27 Alkaline Phosphatase 101 Total Protein 6.1 L Albumin 3.4 HIV 1&2 Antibody Screen Negative HIV P24 Antigen Negative aaox3 ambulating no acute distress Assessment: 08/17/19 10:39 mild withdrawals Plan: continue detox d/c in am
[2019-08-17] MEDS: THIAMINE HCL 100 MG TABLET (FP) PO SCH (22:10)
[2019-08-17] MEDS: OLANZapine 10 MG TABLET PO SCH (22:10)
[2019-08-17] MEDS: MELATONIN 5 MG TABLETS PO PRN (22:10)
[2019-08-18] MEDS ORDERED: LORazepam 0.5 MG TABLET PO ONE (05:00)
--- NOTE | 2019-08-18 08:53 | DS ---
[facility] Detox Discharge Summary Admission Date: 08/14/19 Discharge Date: 08/18/19 - History Present History: Alcohol Dependence, Cocaine Dependence - Physical Exam Results Vital Signs: Vital Signs Temperature 97.9 F 08/18/19 07:00 Pulse Rate 73 08/18/19 07:00 Respiratory Rate 18 08/18/19 07:00 Blood Pressure 102/68 08/18/19 07:00 O2 Sat by Pulse Oximetry (%) Pertinent Admission Physical Exam Findings: pt - Treatment Hospital Course: Detox Protocol Followed, Detoxed Safely, Responded well, Discharged Condition Good, Rehab Referral Accepted Patient has Accepted a Rehab Referral to: pt referred to [facility] inpatient rehab - Medication Discharge Medications: Ambulatory Orders Albuterol Sulfate Inhaler - [Ventolin HFA Inhaler -] 2 inh IH Q4H PRN #1 inhaler 08/31/18 Escitalopram Oxalate [Lexapro -] 20 mg PO DAILY #30 tablet 03/01/19 Olanzapine [Zyprexa] 20 mg PO HS #30 tablet 03/01/19 traZODone HCL [Desyrel -] 50 mg PO HS #30 tablet 03/01/19 - Diagnosis (1) Alcohol dependence with uncomplicated withdrawal Current Visit: Yes Status: Acute (2) Cocaine dependence Current Visit: Yes Status: Acute Qualifiers: Substance use status: uncomplicated Qualified Code(s): F14.20 - Cocaine dependence, uncomplicated (3) Substance-induced sleep disorder Current Visit: Yes Status: Acute (4) Schizoaffective disorder Current Visit: Yes Status: Chronic Qualifiers: Schizoaffective disorder type: unspecified Qualified Code(s): F25.9 - Schizoaffective disorder, unspecified (5) Alcohol dependence Current Visit: No Status: Acute (6) Diarrhea Current Visit: No Status: Acute (7) Hypokalemia Current Visit: No Status: Acute (8) Insomnia Current Visit: No Status: Acute Qualifiers: Insomnia type: alcohol-induced Qualified Code(s): F10.982 - Alcohol use, unspecified with alcohol-induced sleep disorder (9) Substance-induced anxiety disorder Current Visit: No Status: Acute (10) Weight loss Current Visit: No Status: Acute (11) Asthma Current Visit: No Status: Chronic Qualifiers: Asthma severity: mild Asthma persistence: intermittent Asthma complication type: unspecified Qualified Code(s): J45.20 - Mild intermittent asthma, uncomplicated (12) Major depressive disorder Current Visit: No Status: Chronic (13) Nicotine dependence Current Visit: No Status: Chronic Qualifiers: Nicotine product type: cigarettes Substance use status: uncomplicated Qualified Code(s): F17.210 - Nicotine dependence, cigarettes, uncomplicated (14) Substance induced mood disorder Current Visit: No Status: Suspected (15) Bipolar disorder Current Visit: No Status: Ruled-out - AMA Did Patient Leave Against Medical Advice: No
[2019-08-18 09:22] VITALS: BP 132/75; PULSE 84; TEMP 98.2
[2019-08-18] MEDS: PRENATAL VITAMINS W/ FOLIC ACID TABLET (FP) PO SCH (10:25)
[2019-08-18] MEDS: NICOTINE 7 MG/24 HOURS TOPICAL PATCH TD SCH (10:25)
== END 2019-08-18 12:21 | disposition home or self-care (01) | DRG 774 ==
LOC: YASAS 09:44 → Y6N 11:44
PROVIDERS: ADMIT Allergy & Immunology; ATTEND Allergy & Immunology
PROC: HZ2ZZZZ Detoxification Services for Substance Abuse Treatment (ICD-10-PCS; principal; 2019-08-14)
DX: F10.230 Alcohol dependence with withdrawal, uncomplicated (principal); F14.20 Cocaine dependence, uncomplicated; F17.210 Nicotine dependence, cigarettes, uncomplicated; F19.280 Other psychoactive substance dependence with psychoactive substance-induced anxiety disorder; F19.282 Other psychoactive substance dependence with psychoactive substance-induced sleep disorder; F19.24 Other psychoactive substance dependence with psychoactive substance-induced mood disorder; F25.9 Schizoaffective disorder, unspecified; F31.9 Bipolar disorder, unspecified; E87.6 Hypokalemia; R19.7 Diarrhea, unspecified; R63.4 Abnormal weight loss; Z68.20 Body mass index [BMI] 20.0-20.9, adult; Z91.5 Personal history of self-harm
CPT/HCPCS: 36415; 80053; 85027; 86593; 87389

== ENCOUNTER 2019-09-25 11:16 | Inpatient (IN) | payer OTHER ==
[2019-09-25 12:14] VITALS: BMI 22.1
--- NOTE | 2019-09-25 12:52 | HP ---
CIWA Score Nausea/Vomitin Muscle Tremors: 2 Anxiety: 2 Agitation: 2 Paroxysmal Sweats: 2 Orientation: 0-Oriented Tacttile Disturbances: 1-Very Mild Itch/Numbness Auditory Disturbances: 1-Very Mild Visual Disturbances: 1-Very Mild Sensitivity Headache: 2-Mild CIWA-Ar Total Score: 15 - Admission Criteria OASAS Guidelines: Admission for Medically Managed Detox: Requires at least one of the followin. CIWA greater than 12 2. Seizures within the past 24 hours 3. Delirium tremens within the past 24 hours 4. Hallucinations within the past 24 hours 5. Acute intervention needed for co occurring medical disorder 6. Acute intervention needed for co occurring psychiatric disorder 7. Severe withdrawal that cannot be handled at a lower level of care (continued vomiting, continued diarrhea, abnormal vital signs) requiring intravenous medication and/or fluids 8. Patient presents the following: CIWA greater than 12 Admission Criteria Met: Admission criteria met Admitting History and Physical - Smoking History Smoking history: Former smoker Have you smoked in the past 12 months: Yes Aproximately how many cigarettes per day: 20 If you are a former smoker, when did you quit?: may - Alcohol/Substance Use Hx Alcohol Use: Yes (2 six packs daily) Admission [facility] Chief Complaint: I need help to get better Allergies/Adverse Reactions: Allergies Allergy/AdvReac Type Severity Reaction Status Date / Time No Known Drug Allergies Allergy Verified 08/14/19 10:17 History of Present Illness: Patient is a 53 year old man who presents for detox from alcohol. His last treatment at [facility] was from 08/14 to 08/18 following which he had another treatment at [facility] in late August. He denies alcohol related seizures but reports blackouts, last episode was in August of 2018. Exam Limitations: No Limitations - Ebola screening Have you traveled outside of the country in the last 21 days: No (N) Have you had contact with anyone from an Ebola affected area: No Have you been sick,other than usual withdrawal symptoms: No Do you have a fever: No - Review of Systems Constitutional: Chills, Loss of Appetite, Changes in sleep, Unexplained wgt Loss EENT: reports: Blurred Vision, Recent change in vision Respiratory: reports: Cough Cardiac: reports: Lightheadedness GI: reports: Diarrhea, Nausea, Poor Appetite, Poor Fluid Intake, Vomiting : reports: No Symptoms Reported Musculoskeletal: reports: Back Pain, Joint Pain, Muscle Pain, Muscle Weakness Integumentary: reports: Sweating Neuro: reports: Headache, Numbness, Tingling, Tremors Endocrine: reports: Unexplained Weight Loss Hematology: reports: No Symptoms Reported Psychiatric: reports: Orientated x3, Anxious, Depressed Other Systems: Reviewed and Negative Patient History - Patient Medical History Hx Anemia: No Hx Asthma: Yes Hx Chronic Obstructive Pulmonary Disease (COPD): No Hx Cancer: No Hx Cardiac Disorders: No Hx Congestive Heart Failure: No Hx Hypertension: No Hx Hypercholesterolemia: No Hx Pacemaker: No HX Cerebrovascular Accident: No Hx Seizures: No Hx Dementia: No Hx Diabetes: No Hx Gastrointestinal Disorders: No Hx Liver Disease: No Hx Genitourinary Disorders: No Hx Sexually Transmitted Disorders: No Hx Renal Disease (ESRD): No Hx Thyroid Disease: No Hx Human Immunodeficiency Virus (HIV): No Hx Hepatitis C: No Hx Depression: Yes Hx Suicide Attempt: Yes (attempted to jump off a roof 2 years ago) Hx Bipolar Disorder: Yes Hx Schizophrenia: Yes - Patient Surgical History Past Surgical History: No - PPD History Previous Implant?: Yes Documented Results: Negative w/proof Implanted On Prior R Admission?: Yes Date: 08/30/18 Results: 0 mm PPD to be Administered?: Yes - Smoking Cessation Smoking history: Current some day smoker Have you smoked in the past 12 months: Yes Aproximately how many cigarettes per day: 3 Cigars Per Day: 0 Hx Chewing Tobacco Use: No Initiated information on smoking cessation: Yes 'Breaking Loose' booklet given: 09/25/19 - Substances abused Alcohol Substance route: Oral Frequency: Daily Amount used: 3 PT vodka, (3)6 PK BEER 16oz Age of first use: 20 Date of last use: 09/25/19 Crack Substance route: Smoking Frequency: Daily Amount used: $100 Age of first use: 20 Date of last use: 02/13/19 Cocaine Substance route: Inhalation Frequency: Daily Amount used: $40 Age of first use: 16 Date of last use: 09/25/19 Admission Physical Exam BHS - Vital Signs Vital Signs: Vital Signs - 24 hr 09/25/19 12:09 Temperature 97.6 F Pulse Rate 102 H Respiratory 16 Rate Blood Pressure 106/58 L - Physical General Appearance: Yes: No Apparent Distress HEENTM: Yes: Hearing grossly Normal, Normocephalic, Normal Voice, Pharynx Normal Respiratory: Yes: Normal Breath Sounds, No Respiratory Distress, No Accessory Muscle Use Breast: Yes: Breast Exam Deferred Cardiology: Yes: Regular Rhythm, Regular Rate, S1, S2 Abdominal: Yes: Normal Bowel Sounds, Non Tender Genitourinary: Yes: Within Normal Limits Back: Yes: Normal Inspection Musculoskeletal: Yes: Back pain, Muscle Pain, Muscle weakness Extremities: Yes: Normal Capillary Refill, Non-Tender, Tremors Neurological: Yes: Fully Oriented, Alert, Motor Strength 5/5, Normal Mood/Affect , Normal Response, Numbness Integumentary: Yes: [place] Lymphatic: Yes: Within Normal Limits - Diagnostic (1) Alcohol dependence with uncomplicated withdrawal Current Visit: Yes Status: Acute (2) Cocaine dependence Current Visit: Yes Status: Acute Qualifiers: Substance use status: uncomplicated Qualified Code(s): F14.20 - Cocaine dependence, uncomplicated (3) Major depressive disorder Current Visit: No Status: Chronic (4) Nicotine dependence Current Visit: Yes Status: Chronic Qualifiers: Nicotine product type: cigarettes Substance use status: uncomplicated Qualified Code(s): F17.210 - Nicotine dependence, cigarettes, uncomplicated Cleared for Admission S - Detox or Rehab [facility] Level of Care: Medically Managed Detox Regimen/Protocol: Librium Claeared for Rehab Admission: No Breathalyzer - Breathalyzer Breathalyzer: 0.097 Urine Drug Screen - Test Device Lot number: [id number] Expiration date: 04/14/21 - Control Is test valid?: Yes - Results Drug screen NEGATIVE: No Urine drug screen results: [facility]ocaine Inpatient Rehab Admission - Rehab Decision to Admit Inpatient rehab admission?: No
[2019-09-25] MEDS ORDERED: MAGNESIUM CITRATE 300 ML BOTTLE PO PRN (12:55)
[2019-09-25] MEDS ORDERED: hydrOXYzine PAMOATE 25 MG CAPSULE (FP) PO PRN (12:55)
[2019-09-25] MEDS ORDERED: MENTHOL/PHENOL 1 EACH UD MM PRN (12:55)
[2019-09-25] MEDS ORDERED: IBUPROFEN 400 MG TABLET (FP) PO PRN (12:55)
[2019-09-25] MEDS ORDERED: MAGNESIUM HYDROX 2400MG/30ML ORAL SUSPENSION 30 ML CUP PO PRN (12:55)
[2019-09-25] MEDS ORDERED: MAG HYDROX/AL HYDROX/SIMETH 30 ML UNIT-DOSE CUP PO PRN (12:55)
[2019-09-25] MEDS ORDERED: chlordiazePOXIDE HCL 10 MG CAPSULE PO PRN (12:55)
[2019-09-25] MEDS ORDERED: METHOCARBAMOL 500 MG TABLET PO PRN (12:55)
[2019-09-25] MEDS ORDERED: BISMUTH SUBSALICYLATE 524 MG/30 ML UD PO PRN (12:55)
[2019-09-25] MEDS ORDERED: NICOTINE POLACRILEX 2 MG GUM BUC PRN (12:55)
[2019-09-25] MEDS ORDERED: ACETAMINOPHEN 325 MG TABLET (FP) PO PRN ×2 (12:55)
[2019-09-25] MEDS ORDERED: chlordiazePOXIDE HCL 25 MG CAPSULE PO ONE (12:55)
[2019-09-25] MEDS ORDERED: MELATONIN 5 MG TABLETS PO PRN (22:00)
[2019-09-25] MEDS: traZODone HCL 50 MG TABLET (FP) PO SCH (22:35)
[2019-09-25] MEDS: chlordiazePOXIDE HCL 25 MG CAPSULE PO SCH (22:35)
[2019-09-25] MEDS: THIAMINE HCL 100 MG TABLET (FP) PO SCH (22:36)
[2019-09-26] MEDS: chlordiazePOXIDE HCL 25 MG CAPSULE PO SCH ×3 (05:11→22:36)
[2019-09-26] MEDS: PRENATAL VITAMINS W/ FOLIC ACID TABLET (FP) PO SCH (10:18)
[2019-09-26 10:51] LABS: HEMATOCRIT 39.1 % (35.4-49); HEMOGLOBIN 13.3 GM/dL (11.7-16.9); MCH 34.6 pg (25.7-33.7); MCHC 34.1 g/dl (32.0-35.9); MEAN CELL VOLUME 101.6 fl (80-96); PLATELET COUNT 223 K/MM3 (134-434); RBC 3.85 M/mm3 (4.00-5.60); RDW 13.3 % (11.9-15.9); WHITE BLOOD COUNT 3.5 K/mm3 (4.0-10.0)
--- NOTE | 2019-09-26 11:01 | PN ---
[facility] CIWA - CIWA Score Nausea/Vomitin-Mild Nausea/No Vomiting Muscle Tremors: 3 Anxiety: 4-Mod. Anxious/Guarded Agitation: 2 Paroxysmal Sweats: 3 Orientation: 0-Oriented Tacttile Disturbances: 0-None Auditory Disturbances: 0-None Visual Disturbances: 0-None Headache: 0-None Present CIWA-Ar Total Score: 13 S Progress Note (SOAP) Subjective: Tremor, chills, diarrhea Objective: 09/26/19 10:58 Last Vital Signs Temp Pulse Resp BP Pulse Ox 97.7 F 74 18 114/72 09/26/19 09:21 09/26/19 09:21 09/26/19 09:21 09/26/19 09:21 Laboratory Tests 09/26/19 07:15 WBC 3.5 L RBC 3.85 L Hgb 13.3 Hct 39.1 MCV 101.6 H MCH 34.6 H MCHC 34.1 RDW 13.3 Plt Count 223 MPV 8.0 CBC reviewed; CMP/RPR pending result Assessment: 09/26/19 11:00 Withdrawal sxs Plan: Continue detox Encouraged PO water intake Follow up on admission lab results (CMP/RPR)
[2019-09-26 11:02] LABS: BILIRUBIN,TOTAL 0.6 mg/dL (0.2-1); BLOOD UREA NITROGEN 15.8 mg/dL (7-18); CALCIUM 8.2 mg/dL (8.5-10.1); CREATININE 0.8 mg/dL (0.55-1.3); POTASSIUM 3.4 mmol/L (3.5-5.1); TOT PROT 5.7 g/dl (6.4-8.2)
--- NOTE | 2019-09-26 13:29 | CONSULT ---
[facility] Psychiatric Consult - Data Date of interview: 09/26/19 Admission source: Self-referred Identifying data: Mr Monsivais is a 53 years old single Black male, father of 2 children, unnemployed on public assistance, domiciled seeking detox treatment for alcohol and cocaine Substance Abuse History: Reports history of alcohol and crack cocaine use. Refer to addiction counselor's summary for further information Medical History: Significant for bronchial asthma. Smokes 3 cigarettes daily Psychiatric History: Patient is known to this facility for multiple admissions. Most recent admission was from 08/14/19 to 08/18/19. He reports that his first psychiatric contact was in 1984 when he was admitted to [facility] for command auditory hallucinations and suicidal ideations. He was diagnosed with Bipolar Schizophrenia and treated with Zyprexa and Lexapro. Reports multiple subsequent admissions to various institutions including [facility] , [facility], [facility], [facility], [facility], [facility], [facility] Most recent one was in 2017 to [facility] for depression and suicidal. Reports that he is not currently receiving outpatent psychiatric treatment. Reports that his most recent outpatient psychiatric treatment was 3 months ago at [facility] and he is prescribed Celexa 20 mg po daily, Zyprexa 20 mg po HS and Trazadone 50 mg po HS. During his most recent admission to this facility, he was seen by NELSON Perez on 08/15/19 and he was prescribed Celexa 20 mg/day, Zyprexa 20 mg/hs and Trazadone 50 mg/hs. Denies history of suicidal attempt. Denies experiencing psychotic, manic symptoms, S/H ideations. However, reports feeling depressed and sleeping poorly Physical/Sexual Abuse/Trauma History: Denies history of verbal, physical or sexual abuse as well as DV relationship. No service Additional Comment: Denies criminal history Mental Status Exam - Mental Status Exam Alert and Oriented to: Time, Place, Person Cognitive Function: Fair Patient Appearance: Well Groomed Mood: Depressed Affect: Appropriate Patient Behavior: Cooperative Speech Pattern: Clear Voice Loudness: Normal Thought Process: Intact, Goal Oriented Thought Disorder: Not Present Hallucinations: Denies Suicidal Ideation: Denies Homicidal Ideation: Denies Insight/Judgement: Poor Sleep: Poorly Appetite: Poor Muscle strength/Tone: Normal Gait/Station: Normal Psychiatric Findings - Problem List ([place] 1, 2,3) (1) Schizoaffective disorder Current Visit: No Status: Chronic Qualifiers: Schizoaffective disorder type: unspecified Qualified Code(s): F25.9 - Schizoaffective disorder, unspecified Comment: As per patient. (2) Substance induced mood disorder Current Visit: Yes Status: Acute (3) Substance-induced sleep disorder Current Visit: No Status: Acute (4) Alcohol dependence with uncomplicated withdrawal Current Visit: Yes Status: Acute (5) Cocaine dependence Current Visit: Yes Status: Acute Qualifiers: Substance use status: uncomplicated Qualified Code(s): F14.20 - Cocaine dependence, uncomplicated (6) Nicotine dependence Current Visit: Yes Status: Chronic Qualifiers: Nicotine product type: cigarettes Substance use status: uncomplicated Qualified Code(s): F17.210 - Nicotine dependence, cigarettes, uncomplicated (7) Asthma Current Visit: No Status: Chronic Qualifiers: Asthma severity: mild Asthma persistence: intermittent Asthma complication type: unspecified Qualified Code(s): J45.20 - Mild intermittent asthma, uncomplicated - Initial Treatment Plan Initial Treatment Plan: 1) Resume Celexa 20 mg po daily, Zyprexa 20 mg po HS and Trazadone 50 mg po HS. 2) Continue inpatient detoxification
[2019-09-26] MEDS: CITALOPRAM HYDROBROMIDE 20 MG TABLET (FP) PO SCH (14:00)
[2019-09-26] MEDS: THIAMINE HCL 100 MG TABLET (FP) PO SCH (22:36)
[2019-09-26] MEDS: OLANZapine 10 MG TABLET PO SCH (22:36)
[2019-09-26] MEDS: traZODone HCL 50 MG TABLET (FP) PO SCH (22:36)
[2019-09-27] MEDS: chlordiazePOXIDE 5 MG CAPSULE PO SCH ×3 (07:02→22:14)
[2019-09-27] MEDS: PRENATAL VITAMINS W/ FOLIC ACID TABLET (FP) PO SCH (10:10)
[2019-09-27] MEDS: CITALOPRAM HYDROBROMIDE 20 MG TABLET (FP) PO SCH (10:11)
--- NOTE | 2019-09-27 11:25 | PN ---
[facility] CIWA - CIWA Score Nausea/Vomitin-Mild Nausea/No Vomiting Muscle Tremors: 2 Anxiety: 2 Agitation: 2 Paroxysmal Sweats: 1-Minimal Palms Moist Orientation: 0-Oriented Tacttile Disturbances: 1-Very Mild Itch/Numbness Auditory Disturbances: 0-None Visual Disturbances: 0-None Headache: 1-Very Mild CIWA-Ar Total Score: 10 S Progress Note (SOAP) Subjective: alert,irritable,anxious,interrupted sleep,pain in the body Objective: 09/27/19 11:24 Vital Signs Temperature 98.1 F 09/27/19 09:58 Pulse Rate 75 09/27/19 09:58 Respiratory Rate 16 09/27/19 09:58 Blood Pressure 99/61 09/27/19 09:58 O2 Sat by Pulse Oximetry (%) 09/27/19 11:24 Laboratory Last Values WBC 3.5 K/mm3 (4.0-10.0) L 09/26/19 07:15 RBC 3.85 M/mm3 (4.00-5.60) L 09/26/19 07:15 Hgb 13.3 GM/dL (11.7-16.9) 09/26/19 07:15 Hct 39.1 % (35.4-49) 09/26/19 07:15 MCV 101.6 fl (80-96) H 09/26/19 07:15 MCH 34.6 pg (25.7-33.7) H 09/26/19 07:15 MCHC 34.1 g/dl (32.0-35.9) 09/26/19 07:15 RDW 13.3 % (11.9-15.9) 09/26/19 07:15 Plt Count 223 K/MM3 (134-434) 09/26/19 07:15 MPV 8.0 fl (7.5-11.1) 09/26/19 07:15 Sodium 142 mmol/L (136-145) 09/26/19 07:15 Potassium 3.4 mmol/L (3.5-5.1) L 09/26/19 07:15 Chloride 109 mmol/L (98-107) H 09/26/19 07:15 Carbon Dioxide 28 mmol/L (21-32) 09/26/19 07:15 Anion Gap 4 MMOL/L (8-16) L 09/26/19 07:15 BUN 15.8 mg/dL (7-18) 09/26/19 07:15 Creatinine 0.8 mg/dL (0.55-1.3) 09/26/19 07:15 Est GFR (CKD-EPI)AfAm 118.20 09/26/19 07:15 Est GFR (CKD-EPI)NonAf 101.99 09/26/19 07:15 Random Glucose 130 mg/dL (74-106) H 09/26/19 07:15 Calcium 8.2 mg/dL (8.5-10.1) L 09/26/19 07:15 Total Bilirubin 0.6 mg/dL (0.2-1) 09/26/19 07:15 AST 28 U/L (15-37) 09/26/19 07:15 ALT 26 U/L (13-61) 09/26/19 07:15 Alkaline Phosphatase 141 U/L (45-117) H 09/26/19 07:15 Total Protein 5.7 g/dl (6.4-8.2) L 09/26/19 07:15 Albumin 3.0 g/dl (3.4-5.0) L 09/26/19 07:15 RPR Titer Nonreactive (NONREACTIVE) 09/26/19 07:15 Assessment: 09/27/19 11:29 withdrawal symptom Plan: continue detox librium regimen,k is 3.4,k dure 20 meq now,glucose 130,fasting glucose in am,repaat k in am, encourage oral fluid,water
[2019-09-27] MEDS ORDERED: POTASSIUM CHLORIDE TABS 20 MEQ TABLET.ER (FP) PO ONE (11:55)
[2019-09-27] MEDS: THIAMINE HCL 100 MG TABLET (FP) PO SCH (22:12)
[2019-09-27] MEDS: OLANZapine 10 MG TABLET PO SCH (22:12)
[2019-09-27] MEDS: traZODone HCL 50 MG TABLET (FP) PO SCH (22:14)
[2019-09-28] MEDS ORDERED: chlordiazePOXIDE HCL 10 MG CAPSULE PO PRN
[2019-09-28] MEDS: chlordiazePOXIDE HCL 10 MG CAPSULE PO SCH ×3 (05:35→22:06)
[2019-09-28 09:49] LABS: POTASSIUM 3.9 mmol/L (3.5-5.1)
--- NOTE | 2019-09-28 10:07 | PN ---
[facility] CIWA - CIWA Score Nausea/Vomitin-Mild Nausea/No Vomiting Muscle Tremors: 1-None Visible, but [place] Anxiety: 1-Mildly Anxious Agitation: 1-Slight > Activity Paroxysmal Sweats: No Perspiration Orientation: 0-Oriented Tacttile Disturbances: 0-None Auditory Disturbances: 0-None Visual Disturbances: 0-None Headache: 1-Very Mild CIWA-Ar Total Score: 5 S Progress Note (SOAP) Subjective: alert,irritable,anxious,interrupted sleep Objective: 09/28/19 10:04 Vital Signs Temperature 97.3 F L 09/28/19 05:00 Pulse Rate 76 09/28/19 05:00 Respiratory Rate 18 09/28/19 05:00 Blood Pressure 123/88 09/28/19 05:00 O2 Sat by Pulse Oximetry (%) 09/28/19 10:05 fasting glucose is 78,k is 3.9 Assessment: 09/28/19 10:06 withdrawal symptom Plan: continue detox librium regimen,discharge in am
[2019-09-28] MEDS: CITALOPRAM HYDROBROMIDE 20 MG TABLET (FP) PO SCH (10:20)
[2019-09-28] MEDS: PRENATAL VITAMINS W/ FOLIC ACID TABLET (FP) PO SCH (10:20)
[2019-09-28] MEDS: traZODone HCL 50 MG TABLET (FP) PO SCH (22:06)
[2019-09-28] MEDS: OLANZapine 10 MG TABLET PO SCH (22:06)
[2019-09-28] MEDS: THIAMINE HCL 100 MG TABLET (FP) PO SCH (22:06)
[2019-09-29] MEDS ORDERED: chlordiazePOXIDE HCL 10 MG CAPSULE PO ONE (05:00)
--- NOTE | 2019-09-29 08:21 | DS ---
[facility] Detox Discharge Summary Admission Date: 09/25/19 Discharge Date: 09/29/19 - History Present History: Alcohol Dependence, Cocaine Dependence - Physical Exam Results Vital Signs: Vital Signs Temperature 98.1 F 09/28/19 21:41 Pulse Rate 83 09/28/19 21:41 Respiratory Rate 18 09/29/19 03:46 Blood Pressure 123/82 09/28/19 21:41 O2 Sat by Pulse Oximetry (%) Pertinent Admission Physical Exam Findings: Vital Signs Temperature 98.1 F 09/28/19 21:41 Pulse Rate 83 09/28/19 21:41 Respiratory Rate 18 09/29/19 03:46 Blood Pressure 123/82 09/28/19 21:41 O2 Sat by Pulse Oximetry (%) Laboratory Tests 09/26/19 09/26/19 09/26/19 07:15 07:15 07:15 WBC 3.5 L RBC 3.85 L Hgb 13.3 Hct 39.1 MCV 101.6 H MCH 34.6 H MCHC 34.1 RDW 13.3 Plt Count 223 MPV 8.0 Sodium 142 Potassium 3.4 L Chloride 109 H Carbon Dioxide 28 Anion Gap 4 L BUN 15.8 Creatinine 0.8 Est GFR (CKD-EPI)AfAm 118.20 Est GFR (CKD-EPI)NonAf 101.99 Random Glucose 130 H Fasting Glucose Calcium 8.2 L Total Bilirubin 0.6 AST 28 ALT 26 Alkaline Phosphatase 141 H Total Protein 5.7 L Albumin 3.0 L RPR Titer Nonreactive 09/28/19 07:20 WBC RBC Hgb Hct MCV MCH MCHC RDW Plt Count MPV Sodium Potassium 3.9 Chloride Carbon Dioxide Anion Gap BUN Creatinine Est GFR (CKD-EPI)AfAm Est GFR (CKD-EPI)NonAf Random Glucose Fasting Glucose 78 Calcium Total Bilirubin AST ALT Alkaline Phosphatase Total Protein Albumin RPR Titer aaox3 ambulating no acute distress - Treatment Hospital Course: Detox Protocol Followed, Detoxed Safely, Responded well, Discharged Condition Good, Rehab Referral Accepted Patient has Accepted a Rehab Referral to: referred to inpatient rehab; [facility] - Medication Discharge Medications: Ambulatory Orders Albuterol Sulfate Inhaler - [Ventolin HFA Inhaler -] 2 inh IH Q4H PRN #1 inhaler 08/31/18 Escitalopram Oxalate [Lexapro -] 20 mg PO DAILY #30 tablet 03/01/19 Olanzapine [Zyprexa] 20 mg PO HS #30 tablet 03/01/19 traZODone HCL [Desyrel -] 50 mg PO HS #30 tablet 03/01/19 - Diagnosis (1) Alcohol dependence with uncomplicated withdrawal Current Visit: Yes Status: Chronic (2) Cocaine dependence Current Visit: Yes Status: Chronic Qualifiers: Substance use status: uncomplicated Qualified Code(s): F14.20 - Cocaine dependence, uncomplicated (3) Substance induced mood disorder Current Visit: Yes Status: Acute (4) Nicotine dependence Current Visit: Yes Status: Chronic Qualifiers: Nicotine product type: cigarettes Substance use status: uncomplicated Qualified Code(s): F17.210 - Nicotine dependence, cigarettes, uncomplicated (5) Insomnia Current Visit: No Status: Acute Qualifiers: Insomnia type: alcohol-induced Qualified Code(s): F10.982 - Alcohol use, unspecified with alcohol-induced sleep disorder (6) Substance-induced anxiety disorder Current Visit: No Status: Acute (7) Substance-induced sleep disorder Current Visit: No Status: Acute (8) Weight loss Current Visit: No Status: Acute (9) Asthma Current Visit: Yes Status: Chronic Qualifiers: Asthma severity: mild Asthma persistence: intermittent Asthma complication type: unspecified Qualified Code(s): J45.20 - Mild intermittent asthma, uncomplicated (10) Major depressive disorder Current Visit: No Status: Chronic (11) Schizoaffective disorder Current Visit: No Status: Chronic Qualifiers: Schizoaffective disorder type: unspecified Qualified Code(s): F25.9 - Schizoaffective disorder, unspecified (12) Substance induced mood disorder Current Visit: No Status: Suspected (13) Bipolar disorder Current Visit: No Status: Ruled-out - AMA Did Patient Leave Against Medical Advice: No
[2019-09-29 08:36] VITALS: BP 125/81; PULSE 66; TEMP 97.3
[2019-09-29] MEDS: PRENATAL VITAMINS W/ FOLIC ACID TABLET (FP) PO SCH (11:29)
[2019-09-29] MEDS: CITALOPRAM HYDROBROMIDE 20 MG TABLET (FP) PO SCH (11:29)
== END 2019-09-29 09:40 | disposition home or self-care (01) | DRG 774 ==
LOC: YASAS 11:16 → Y6N 13:10
PROVIDERS: ADMIT Allergy & Immunology; ATTEND Allergy & Immunology
PROC: HZ2ZZZZ Detoxification Services for Substance Abuse Treatment (ICD-10-PCS; principal; 2019-09-25)
DX: F10.230 Alcohol dependence with withdrawal, uncomplicated (principal); F14.20 Cocaine dependence, uncomplicated; F17.210 Nicotine dependence, cigarettes, uncomplicated; F19.280 Other psychoactive substance dependence with psychoactive substance-induced anxiety disorder; F19.282 Other psychoactive substance dependence with psychoactive substance-induced sleep disorder; F19.24 Other psychoactive substance dependence with psychoactive substance-induced mood disorder; F25.9 Schizoaffective disorder, unspecified; F31.9 Bipolar disorder, unspecified; F33.9 Major depressive disorder, recurrent, unspecified; J45.20 Mild intermittent asthma, uncomplicated; R63.4 Abnormal weight loss; Z68.22 Body mass index [BMI] 22.0-22.9, adult; Z91.5 Personal history of self-harm
CPT/HCPCS: 36415; 80053; 82947; 84132; 85027; 86593

== ENCOUNTER 2023-03-14 09:42 | Inpatient (IN) | payer OTHER ==
[2023-03-14 10:13] VITALS: BMI 20.7
[2023-03-14] MEDS ORDERED: ALBUTEROL SO4 HFA INHALER IH PRN (10:38)
[2023-03-14] MEDS ORDERED: ACETAMINOPHEN 325 MG TABLET (FP) PO PRN (10:39)
[2023-03-14] MEDS ORDERED: ONDANSETRON *ODT* 4 MG TABLET SL PRN (10:39)
[2023-03-14] MEDS ORDERED: BENZOCAINE/MENTHOL (CHLORASEPTIC ) LOZENGE MM PRN (10:39)
[2023-03-14] MEDS ORDERED: P-EPHED 60MG/TRIPROLIDI 2.5MG TABLET PO PRN (10:39)
[2023-03-14] MEDS ORDERED: BISMUTH SUBSALICYLATE 524 MG/30 ML PO PRN (10:39)
[2023-03-14] MEDS ORDERED: IBUPROFEN 400 MG TABLET (FP) PO PRN (10:39)
[2023-03-14] MEDS ORDERED: POLYETHYLENE GLYCOL (HEALTHYLAX) 3350 17 GM PACKET PO PRN (10:39)
[2023-03-14] MEDS ORDERED: BENZONATATE 200 MG CAPSULE PO PRN (10:39)
[2023-03-14] MEDS ORDERED: NICOTINE POLACRILEX 2 MG GUM BUC PRN (10:39)
[2023-03-14] MEDS ORDERED: NICOTINE 10 MG CARTRIDGE (INHALER) IH PRN (10:39)
[2023-03-14] MEDS ORDERED: MAG HYDROX/AL HYDROX/SIMETH 30 ML UNIT-DOSE CUP PO PRN (10:39)
[2023-03-14] MEDS ORDERED: guaiFENesin 600 MG TABLET.ER (FP) PO PRN (10:39)
[2023-03-14] MEDS ORDERED: DICYCLOMINE HCL 10 MG CAPSULE PO PRN (10:39)
[2023-03-14] MEDS ORDERED: LOPERAMIDE HCL 2 MG CAPSULE PO PRN (10:39)
[2023-03-14] MEDS ORDERED: MAGNESIUM HYDROX 2400MG/30ML ORAL SUSPENSION 30 ML CUP PO PRN (10:39)
[2023-03-14] MEDS ORDERED: IBUPROFEN 600 MG TABLET (FP) PO ONE (12:08)
[2023-03-14] MEDS: IBUPROFEN 600 MG TABLET (FP) PO PRN (12:10)
[2023-03-14 14:33] LABS: HEMATOCRIT 45.8 % (35.4-49); HEMOGLOBIN 15.2 GM/dL (11.7-16.9); MCH 32.4 pg (25.7-33.7); MCHC 33.1 g/dl (32.0-35.9); MEAN CELL VOLUME 97.8 fl (80-96); MEAN PLT VOLUME 8.1 fl (7.5-11.1); PLATELET COUNT 267 10^3/uL (134-434); RBC 4.68 M/mm3 (4.00-5.60); RDW 13.1 % (11.9-15.9); WHITE BLOOD COUNT 5.7 K/mm3 (4.0-10.0)
[2023-03-14 14:37] LABS: POTASSIUM 3.2 mmol/L (3.5-5.1)
[2023-03-14 14:40] LABS: CALCIUM 9.4 mg/dL (8.5-10.1)
[2023-03-14 14:41] LABS: ALBUMIN 4.6 g/dl (3.4-5.0); BLOOD UREA NITROGEN 10.3 mg/dL (7-18)
[2023-03-14 14:45] LABS: CREATININE 0.9 mg/dL (0.55-1.3)
[2023-03-14 14:46] LABS: BILIRUBIN,TOTAL 1.6 mg/dL (0.2-1)
[2023-03-14 15:32] LABS: HIV INTERPRETATION NEGATIVE (NEGATIVE)
[2023-03-14] MEDS: MELATONIN 5 MG TABLETS PO SCH (22:14)
[2023-03-14] MEDS: THIAMINE HCL 100 MG TABLET (FP) PO SCH (22:14)
[2023-03-14] MEDS: METHOCARBAMOL 500 MG TABLET PO PRN (22:16)
[2023-03-15] MEDS: IBUPROFEN 600 MG TABLET (FP) PO PRN (05:55)
[2023-03-15] MEDS: METHOCARBAMOL 500 MG TABLET PO PRN (05:56)
[2023-03-15] MEDS: PRENATAL VITAMINS W/ FOLIC ACID TABLET (FP) PO SCH (10:27)
[2023-03-15] MEDS ORDERED: diazePAM 5 MG TABLET PO PRN (10:30)
[2023-03-15] MEDS: diazePAM 5 MG TABLET PO SCH ×3 (11:02→22:35)
[2023-03-15] MEDS: POTASSIUM CHLORIDE ORAL LIQUID 20 MEQ/15 ML PO SCH ×2 (11:02→22:35)
[2023-03-15] MEDS ORDERED: PNEUMOC 20-VAL CONJ-DIP CRM/PF 0.5 ML SYRINGE IM ONE (12:00)
[2023-03-15] MEDS: THIAMINE HCL 100 MG TABLET (FP) PO SCH (22:35)
[2023-03-15] MEDS: MELATONIN 5 MG TABLETS PO SCH (22:35)
[2023-03-16] MEDS: IBUPROFEN 600 MG TABLET (FP) PO PRN (05:51)
[2023-03-16] MEDS: METHOCARBAMOL 500 MG TABLET PO PRN ×2 (05:51→17:31)
[2023-03-16] MEDS: diazePAM 5 MG TABLET PO SCH ×4 (05:52→22:41)
[2023-03-16] MEDS: PRENATAL VITAMINS W/ FOLIC ACID TABLET (FP) PO SCH (10:27)
[2023-03-16] MEDS: POTASSIUM CHLORIDE ORAL LIQUID 20 MEQ/15 ML PO SCH ×2 (10:27→22:40)
[2023-03-16] MEDS: MELATONIN 5 MG TABLETS PO SCH (22:40)
[2023-03-16] MEDS: THIAMINE HCL 100 MG TABLET (FP) PO SCH (22:40)
[2023-03-17] MEDS: IBUPROFEN 600 MG TABLET (FP) PO PRN ×2 (05:44→14:15)
[2023-03-17] MEDS: diazePAM 5 MG TABLET PO SCH ×2 (05:44→13:54)
[2023-03-17] MEDS: METHOCARBAMOL 500 MG TABLET PO PRN (05:44)
[2023-03-17] MEDS: PRENATAL VITAMINS W/ FOLIC ACID TABLET (FP) PO SCH (09:55)
[2023-03-17] MEDS: POTASSIUM CHLORIDE ORAL LIQUID 20 MEQ/15 ML PO SCH (09:55)
[2023-03-17 13:13] VITALS: BP 138/85; PULSE 71; RESP 18; TEMP 97.7
[2023-03-17] MEDS ORDERED: LIDOCAINE 5% TOPICAL PATCH TP SCH (13:45)
[2023-03-17] MEDS ORDERED: LIDOCAINE PATCH REMOVAL MC SCH (22:00)
[2023-03-18] MEDS ORDERED: diazePAM 5 MG TABLET PO SCH (06:00)
[2023-03-19] MEDS ORDERED: diazePAM 5 MG TABLET PO ONE (06:00)
== END 2023-03-17 16:05 | disposition left against medical advice (07) | DRG 770 ==
LOC: YASAS 09:42 → Y3N 11:31
PROVIDERS: ADMIT Allergy & Immunology; ATTEND Surgery
PROC: HZ2ZZZZ Detoxification Services for Substance Abuse Treatment (ICD-10-PCS; principal; 2023-03-14)
DX: F10.230 Alcohol dependence with withdrawal, uncomplicated (principal); F14.20 Cocaine dependence, uncomplicated; F17.210 Nicotine dependence, cigarettes, uncomplicated; F25.0 Schizoaffective disorder, bipolar type; E87.6 Hypokalemia; M16.11 Unilateral primary osteoarthritis, right hip; M54.50 Low back pain, unspecified; G89.29 Other chronic pain; Z91.199 Patient's noncompliance with other medical treatment and regimen due to unspecified reason
CPT/HCPCS: 36415; 80053; 85027; 86780; 87389; 87635

== ENCOUNTER 2023-07-29 23:27 | Inpatient (IN) | payer OTHER ==
[2023-07-30 00:19] VITALS: BMI 21.1
[2023-07-30] MEDS ORDERED: NALOXONE HCL (KLOXXADO) 8 MG SPRAY NS PRN (01:16)
[2023-07-30] MEDS ORDERED: DICYCLOMINE HCL 10 MG CAPSULE PO PRN (01:16)
[2023-07-30] MEDS ORDERED: BISMUTH SUBSALICYLATE 524 MG/30 ML PO PRN (01:16)
[2023-07-30] MEDS ORDERED: IBUPROFEN 400 MG TABLET (FP) PO PRN (01:16)
[2023-07-30] MEDS ORDERED: MAGNESIUM HYDROX 2400MG/30ML ORAL SUSPENSION 30 ML CUP PO PRN (01:16)
[2023-07-30] MEDS ORDERED: hydrOXYzine PAMOATE 25 MG CAPSULE (FP) PO PRN (01:16)
[2023-07-30] MEDS ORDERED: guaiFENesin 600 MG TABLET.ER (FP) PO PRN (01:16)
[2023-07-30] MEDS ORDERED: MAG HYDROX/AL HYDROX/SIMETH 30 ML UNIT-DOSE CUP PO PRN (01:16)
[2023-07-30] MEDS ORDERED: BENZONATATE 200 MG CAPSULE PO PRN (01:16)
[2023-07-30] MEDS ORDERED: ACETAMINOPHEN 325 MG TABLET (FP) PO PRN (01:16)
[2023-07-30] MEDS ORDERED: NALOXONE HCL 0.4 MG/ML VIAL IM PRN (01:16)
[2023-07-30] MEDS ORDERED: NICOTINE POLACRILEX 2 MG GUM BUC PRN (01:16)
[2023-07-30] MEDS ORDERED: LOPERAMIDE HCL 2 MG CAPSULE PO PRN (01:16)
[2023-07-30] MEDS ORDERED: BENZOCAINE/MENTHOL (CHLORASEPTIC ) LOZENGE MM PRN (01:16)
[2023-07-30] MEDS ORDERED: POLYETHYLENE GLYCOL (HEALTHYLAX) 3350 17 GM PACKET PO PRN (01:16)
[2023-07-30] MEDS: IBUPROFEN 600 MG TABLET (FP) PO PRN (09:31)
[2023-07-30] MEDS ORDERED: chlordiazePOXIDE HCL 25 MG CAPSULE PO PRN (10:15)
[2023-07-30] MEDS ORDERED: ALBUTEROL SO4 HFA INHALER IH PRN (10:16)
[2023-07-30] MEDS: PRENATAL VITAMINS W/ FOLIC ACID TABLET (FP) PO SCH (10:29)
[2023-07-30] MEDS: NICOTINE 14 MG/24 HOURS TOPICAL PATCH TD SCH (10:30)
[2023-07-30] MEDS: chlordiazePOXIDE HCL 25 MG CAPSULE PO SCH ×3 (11:07→22:31)
[2023-07-30] MEDS: POTASSIUM CHLORIDE ORAL LIQUID 20 MEQ/15 ML PO SCH ×2 (11:11→14:48)
[2023-07-30] MEDS ORDERED: LIDOCAINE 4% PATCH TP SCH (11:30)
[2023-07-30 13:02] LABS: HEMOGLOBIN 12.2 GM/dL (11.7-16.9); RDW 13.7 % (11.9-15.9)
[2023-07-30 13:05] LABS: HEMATOCRIT 35.7 % (35.4-49); MCH 32.4 pg (25.7-33.7); MCHC 34.3 g/dl (32.0-35.9); MEAN CELL VOLUME 94.6 fl (80-96); MEAN PLT VOLUME 8.1 fl (7.5-11.1); PLATELET COUNT 201 10^3/uL (134-434); RBC 3.77 M/mm3 (4.00-5.60); WHITE BLOOD COUNT 4.3 K/mm3 (4.0-10.0)
[2023-07-30 13:08] LABS: ALBUMIN 3.5 g/dl (3.4-5.0); BLOOD UREA NITROGEN 16.8 mg/dL (7-18); CALCIUM 8.7 mg/dL (8.5-10.1)
[2023-07-30 13:11] LABS: CREATININE 0.8 mg/dL (0.55-1.3)
[2023-07-30 13:13] LABS: BILIRUBIN,TOTAL 0.5 mg/dL (0.2-1); TOT PROT 6.2 g/dl (6.4-8.2)
[2023-07-30] MEDS ORDERED: ESCITALOPRAM OXALATE 10 MG TABLET ONE (14:46)
[2023-07-30] MEDS: ESCITALOPRAM OXALATE 20 MG TABLET PO SCH (14:50)
[2023-07-30] MEDS ORDERED: LIDOCAINE PATCH REMOVAL MC SCH (22:00)
[2023-07-30] MEDS: THIAMINE HCL 100 MG TABLET (FP) PO SCH (22:32)
[2023-07-30] MEDS: traZODone HCL 50 MG TABLET (FP) PO SCH (22:32)
[2023-07-30] MEDS: OLANZapine 10 MG TABLET PO SCH (22:32)
[2023-07-30] MEDS: MELATONIN 5 MG TABLETS PO SCH (22:32)
[2023-07-31] MEDS: chlordiazePOXIDE HCL 25 MG CAPSULE PO SCH ×4 (05:15→22:33)
[2023-07-31] MEDS ORDERED: ESCITALOPRAM OXALATE 10 MG TABLET ONE (09:35)
[2023-07-31] MEDS: NICOTINE 14 MG/24 HOURS TOPICAL PATCH TD SCH (10:39)
[2023-07-31] MEDS: PRENATAL VITAMINS W/ FOLIC ACID TABLET (FP) PO SCH (10:39)
[2023-07-31] MEDS: ESCITALOPRAM OXALATE 20 MG TABLET PO SCH (10:39)
[2023-07-31] MEDS: OLANZapine 10 MG TABLET PO SCH (22:33)
[2023-07-31] MEDS: traZODone HCL 50 MG TABLET (FP) PO SCH (22:33)
[2023-07-31] MEDS: MELATONIN 5 MG TABLETS PO SCH (22:33)
[2023-07-31] MEDS: THIAMINE HCL 100 MG TABLET (FP) PO SCH (22:33)
[2023-08-01] MEDS: chlordiazePOXIDE HCL 25 MG CAPSULE PO SCH ×4 (05:47→22:36)
[2023-08-01] MEDS ORDERED: ESCITALOPRAM OXALATE 10 MG TABLET ONE (09:45)
[2023-08-01] MEDS: NICOTINE 14 MG/24 HOURS TOPICAL PATCH TD SCH (10:50)
[2023-08-01] MEDS: ESCITALOPRAM OXALATE 20 MG TABLET PO SCH (10:50)
[2023-08-01] MEDS: PRENATAL VITAMINS W/ FOLIC ACID TABLET (FP) PO SCH (10:50)
[2023-08-01] MEDS: traZODone HCL 50 MG TABLET (FP) PO SCH (22:35)
[2023-08-01] MEDS: OLANZapine 10 MG TABLET PO SCH (22:35)
[2023-08-01] MEDS: METHOCARBAMOL 500 MG TABLET PO PRN (22:36)
[2023-08-01] MEDS: THIAMINE HCL 100 MG TABLET (FP) PO SCH (22:36)
[2023-08-01] MEDS: MELATONIN 5 MG TABLETS PO SCH (22:36)
[2023-08-01] MEDS: IBUPROFEN 600 MG TABLET (FP) PO PRN (22:37)
[2023-08-02] MEDS ORDERED: chlordiazePOXIDE HCL 10 MG CAPSULE PO PRN
[2023-08-02] MEDS: chlordiazePOXIDE HCL 10 MG CAPSULE PO SCH ×4 (05:48→22:05)
[2023-08-02] MEDS: IBUPROFEN 600 MG TABLET (FP) PO PRN (05:48)
[2023-08-02] MEDS ORDERED: ESCITALOPRAM OXALATE 10 MG TABLET ONE (09:36)
[2023-08-02] MEDS: PRENATAL VITAMINS W/ FOLIC ACID TABLET (FP) PO SCH (10:52)
[2023-08-02] MEDS: NICOTINE 14 MG/24 HOURS TOPICAL PATCH TD SCH (10:54)
[2023-08-02] MEDS: ESCITALOPRAM OXALATE 20 MG TABLET PO SCH (10:54)
[2023-08-02] MEDS: THIAMINE HCL 100 MG TABLET (FP) PO SCH (22:05)
[2023-08-02] MEDS: traZODone HCL 50 MG TABLET (FP) PO SCH (22:05)
[2023-08-02] MEDS: OLANZapine 10 MG TABLET PO SCH (22:05)
[2023-08-02] MEDS: MELATONIN 5 MG TABLETS PO SCH (22:06)
[2023-08-03] MEDS: chlordiazePOXIDE HCL 10 MG CAPSULE PO SCH ×2 (05:57→17:37)
[2023-08-03] MEDS ORDERED: ESCITALOPRAM OXALATE 10 MG TABLET ONE (09:33)
[2023-08-03] MEDS: ESCITALOPRAM OXALATE 20 MG TABLET PO SCH (10:36)
[2023-08-03] MEDS: PRENATAL VITAMINS W/ FOLIC ACID TABLET (FP) PO SCH (10:37)
[2023-08-03] MEDS: NICOTINE 14 MG/24 HOURS TOPICAL PATCH TD SCH (10:40)
[2023-08-03] MEDS: cloNIDine HCL 0.1 MG TABLET PO PRN (10:46)
[2023-08-03] MEDS: IBUPROFEN 600 MG TABLET (FP) PO PRN (11:34)
[2023-08-03] MEDS: METHOCARBAMOL 500 MG TABLET PO PRN (11:34)
[2023-08-03] MEDS: ONDANSETRON *ODT* 4 MG TABLET SL PRN (19:31)
[2023-08-03] MEDS: OLANZapine 10 MG TABLET PO SCH (22:40)
[2023-08-03] MEDS: traZODone HCL 50 MG TABLET (FP) PO SCH (22:40)
[2023-08-03] MEDS: THIAMINE HCL 100 MG TABLET (FP) PO SCH (22:41)
[2023-08-03] MEDS: MELATONIN 5 MG TABLETS PO SCH (22:53)
[2023-08-04] MEDS ORDERED: chlordiazePOXIDE HCL 10 MG CAPSULE PO ONE (05:00)
[2023-08-04] MEDS: ONDANSETRON *ODT* 4 MG TABLET SL PRN (05:13)
[2023-08-04] MEDS: cloNIDine HCL 0.1 MG TABLET PO PRN (05:13)
[2023-08-04 08:55] VITALS: BP 135/84; PULSE 100; RESP 16; TEMP 97.3
[2023-08-04] MEDS ORDERED: ESCITALOPRAM OXALATE 10 MG TABLET ONE (09:26)
[2023-08-04] MEDS: NICOTINE 14 MG/24 HOURS TOPICAL PATCH TD SCH (10:50)
[2023-08-04] MEDS: PRENATAL VITAMINS W/ FOLIC ACID TABLET (FP) PO SCH (10:50)
[2023-08-04] MEDS: ESCITALOPRAM OXALATE 20 MG TABLET PO SCH (10:50)
== END 2023-08-04 11:05 | disposition home or self-care (01) | DRG 774 ==
LOC: YASAS 23:27 → Y6N 07-30 02:19
PROVIDERS: ADMIT Allergy & Immunology; ATTEND Surgery
PROC: HZ2ZZZZ Detoxification Services for Substance Abuse Treatment (ICD-10-PCS; principal; 2023-07-30)
DX: F10.230 Alcohol dependence with withdrawal, uncomplicated (principal); F14.20 Cocaine dependence, uncomplicated; F17.210 Nicotine dependence, cigarettes, uncomplicated; F19.282 Other psychoactive substance dependence with psychoactive substance-induced sleep disorder; F19.24 Other psychoactive substance dependence with psychoactive substance-induced mood disorder; F25.1 Schizoaffective disorder, depressive type; E87.6 Hypokalemia; I10 Essential (primary) hypertension; J45.20 Mild intermittent asthma, uncomplicated; M16.12 Unilateral primary osteoarthritis, left hip; M54.50 Low back pain, unspecified; G89.29 Other chronic pain; R63.4 Abnormal weight loss; Z68.21 Body mass index [BMI] 21.0-21.9, adult; Z99.89 Dependence on other enabling machines and devices
CPT/HCPCS: 36415; 80053; 80307; 84132; 85027; 86780; 87635; 93005; 93010; Q0162

== ENCOUNTER 2024-02-16 17:52 | Inpatient (IN) | payer OTHER ==
[2024-02-16 18:37] VITALS: BMI 25.8
[2024-02-16] MEDS ORDERED: IBUPROFEN 600 MG TABLET (FP) PO PRN (19:09)
[2024-02-16] MEDS ORDERED: P-EPHED 60MG/TRIPROLIDI 2.5MG TABLET PO PRN (19:09)
[2024-02-16] MEDS ORDERED: MAGNESIUM HYDROX 2400MG/30ML ORAL SUSPENSION 30 ML CUP PO PRN (19:09)
[2024-02-16] MEDS ORDERED: BISMUTH SUBSALICYLATE 524 MG/30 ML PO PRN (19:09)
[2024-02-16] MEDS ORDERED: ONDANSETRON *ODT* 4 MG TABLET SL PRN (19:09)
[2024-02-16] MEDS ORDERED: ACETAMINOPHEN 325 MG TABLET (FP) PO PRN (19:09)
[2024-02-16] MEDS ORDERED: NICOTINE POLACRILEX 2 MG LOZENGE BC PRN (19:09)
[2024-02-16] MEDS ORDERED: BENZONATATE 200 MG CAPSULE PO PRN (19:09)
[2024-02-16] MEDS ORDERED: BENZOCAINE/MENTHOL (CHLORASEPTIC ) LOZENGE MM PRN (19:09)
[2024-02-16] MEDS ORDERED: METHOCARBAMOL 500 MG TABLET PO PRN (19:09)
[2024-02-16] MEDS ORDERED: DICYCLOMINE HCL 10 MG CAPSULE PO PRN (19:09)
[2024-02-16] MEDS ORDERED: LOPERAMIDE HCL 2 MG CAPSULE PO PRN (19:09)
[2024-02-16] MEDS ORDERED: MAG HYDROX/AL HYDROX/SIMETH 30 ML UNIT-DOSE CUP PO PRN (19:09)
[2024-02-16] MEDS ORDERED: NICOTINE POLACRILEX 2 MG GUM BUC PRN (19:09)
[2024-02-16] MEDS ORDERED: hydrOXYzine PAMOATE 25 MG CAPSULE (FP) PO PRN (19:09)
[2024-02-16] MEDS ORDERED: POLYETHYLENE GLYCOL (HEALTHYLAX) 3350 17 GM PACKET PO PRN (19:09)
[2024-02-16] MEDS ORDERED: guaiFENesin 600 MG TABLET.ER (FP) PO PRN (19:09)
[2024-02-16] MEDS ORDERED: ALBUTEROL SO4 HFA INHALER IH PRN (19:20)
[2024-02-16] MEDS: MELATONIN 5 MG TABLETS PO SCH (21:41)
[2024-02-16] MEDS: THIAMINE 100 MG TABLET PO SCH (21:41)
[2024-02-17] MEDS: PRENATAL VITAMINS W/ FOLIC ACID TABLET (FP) PO SCH (09:40)
[2024-02-17 11:50] LABS: POTASSIUM 3.6 mmol/L (3.5-5.1)
[2024-02-17 11:53] LABS: HEMATOCRIT 39.6 % (35.4-49); HEMOGLOBIN 13.7 GM/dL (11.7-16.9); MCH 33.2 pg (25.7-33.7); MCHC 34.6 g/dl (32.0-35.9); MEAN CELL VOLUME 95.9 fl (80-96); MEAN PLT VOLUME 8.6 fl (7.5-11.1); PLATELET COUNT 246 10^3/uL (134-434); RBC 4.13 M/mm3 (4.00-5.60); RDW 13.4 % (11.9-15.9)
[2024-02-17 11:54] LABS: ALBUMIN 3.6 g/dl (3.4-5.0); BLOOD UREA NITROGEN 9.5 mg/dL (7-18); CALCIUM 8.4 mg/dL (8.5-10.1)
[2024-02-17 11:57] LABS: TOT PROT 6.9 g/dl (6.4-8.2)
[2024-02-17 12:00] LABS: CREATININE 0.8 mg/dL (0.55-1.3)
[2024-02-17] MEDS: amLODIPine BESYLATE 5 MG TABLET (FP) PO ONE (16:53)
[2024-02-17] MEDS: IBUPROFEN 400 MG TABLET (FP) PO PRN (16:55)
[2024-02-17] MEDS: OLANZapine 5 MG TABLET PO SCH (21:45)
[2024-02-17] MEDS: traZODone HCL 50 MG TABLET (FP) PO SCH (21:45)
[2024-02-18 09:13] VITALS: RESP 18
[2024-02-18] MEDS: ESCITALOPRAM OXALATE 20 MG TABLET PO SCH (09:30)
[2024-02-18 12:56] VITALS: TEMP 98
[2024-02-18 12:57] VITALS: BP 167/118; PULSE 79
== END 2024-02-18 12:50 | disposition other institution (70) | DRG 774 ==
LOC: YASAS 17:52 → Y3N 19:22
PROVIDERS: ADMIT Allergy & Immunology; ATTEND Surgery
PROC: HZ2ZZZZ Detoxification Services for Substance Abuse Treatment (ICD-10-PCS; principal; 2024-02-16)
DX: F10.20 Alcohol dependence, uncomplicated (principal); F14.20 Cocaine dependence, uncomplicated; F12.20 Cannabis dependence, uncomplicated; F17.210 Nicotine dependence, cigarettes, uncomplicated; F25.1 Schizoaffective disorder, depressive type; F31.9 Bipolar disorder, unspecified; M16.12 Unilateral primary osteoarthritis, left hip; M54.50 Low back pain, unspecified; G89.29 Other chronic pain
CPT/HCPCS: 36415; 80053; 85027; 86780; 87811; 93005; 93010

== ENCOUNTER 2024-03-13 02:37 | Inpatient (IN) | payer OTHER ==
[2024-03-13 03:04] VITALS: BMI 22.1
[2024-03-13] MEDS: IBUPROFEN 600 MG TABLET (FP) PO PRN (04:30)
[2024-03-13] MEDS ORDERED: LOPERAMIDE HCL 2 MG CAPSULE PO PRN (04:37)
[2024-03-13] MEDS ORDERED: hydrOXYzine PAMOATE 25 MG CAPSULE (FP) PO PRN (04:37)
[2024-03-13] MEDS ORDERED: NALOXONE HCL 0.4 MG/ML VIAL IM PRN (04:37)
[2024-03-13] MEDS ORDERED: NALOXONE (NARCAN) HCL 4 MG/0.1 ML SPRAY NS PRN (04:37)
[2024-03-13] MEDS ORDERED: DICYCLOMINE HCL 10 MG CAPSULE PO PRN (04:37)
[2024-03-13] MEDS ORDERED: BISMUTH SUBSALICYLATE 524 MG/30 ML PO PRN (04:37)
[2024-03-13] MEDS ORDERED: IBUPROFEN 400 MG TABLET (FP) PO PRN (04:37)
[2024-03-13] MEDS ORDERED: ONDANSETRON *ODT* 4 MG TABLET SL PRN (04:37)
[2024-03-13] MEDS ORDERED: MAGNESIUM HYDROX 2400MG/30ML ORAL SUSPENSION 30 ML CUP PO PRN (04:37)
[2024-03-13] MEDS ORDERED: MAG HYDROX/AL HYDROX/SIMETH 30 ML UNIT-DOSE CUP PO PRN (04:37)
[2024-03-13] MEDS ORDERED: POLYETHYLENE GLYCOL (HEALTHYLAX) 3350 17 GM PACKET PO PRN (04:37)
[2024-03-13] MEDS ORDERED: BENZONATATE 200 MG CAPSULE PO PRN (04:37)
[2024-03-13] MEDS ORDERED: guaiFENesin 600 MG TABLET.ER (FP) PO PRN (04:37)
[2024-03-13] MEDS ORDERED: BENZOCAINE/MENTHOL (CHLORASEPTIC ) LOZENGE MM PRN (04:37)
[2024-03-13] MEDS ORDERED: PRENATAL VITAMINS W/ FOLIC ACID TABLET (FP) PO ONE (10:41)
[2024-03-13] MEDS: PRENATAL VITAMINS W/ FOLIC ACID TABLET (FP) PO SCH (10:42)
[2024-03-13] MEDS ORDERED: diazePAM 5 MG TABLET PO PRN (11:11)
[2024-03-13] MEDS ORDERED: ALBUTEROL SO4 HFA INHALER IH PRN (11:24)
[2024-03-13] MEDS: LIDOCAINE 5% TOPICAL PATCH TP SCH (12:20)
[2024-03-13] MEDS: ESCITALOPRAM OXALATE 20 MG TABLET PO SCH (15:36)
[2024-03-13] MEDS: diazePAM 5 MG TABLET PO SCH (17:32)
[2024-03-13] MEDS: ACETAMINOPHEN 325 MG TABLET (FP) PO PRN (17:32)
[2024-03-13] MEDS: LIDOCAINE PATCH REMOVAL MC SCH ×2 (22:38)
[2024-03-13] MEDS: traZODone HCL 50 MG TABLET (FP) PO SCH (22:40)
[2024-03-13] MEDS: THIAMINE 100 MG TABLET PO SCH (22:40)
[2024-03-13] MEDS: MELATONIN 5 MG TABLETS PO SCH (22:40)
[2024-03-13] MEDS: OLANZapine 10 MG TABLET PO SCH (22:40)
[2024-03-14] MEDS: METHOCARBAMOL 500 MG TABLET PO PRN (05:51)
[2024-03-14 11:12] LABS: HEMATOCRIT 35.6 % (35.4-49); HEMOGLOBIN 12.1 GM/dL (11.7-16.9); MCH 33.3 pg (25.7-33.7); MCHC 34.1 g/dl (32.0-35.9); MEAN CELL VOLUME 97.4 fl (80-96); PLATELET COUNT 215 10^3/uL (134-434); RBC 3.65 M/mm3 (4.00-5.60); RDW 14.2 % (11.9-15.9); WHITE BLOOD COUNT 4.3 K/mm3 (4.0-10.0)
[2024-03-14 11:19] LABS: CHLORIDE 106 mmol/L (98-107); POTASSIUM 3.3 mmol/L (3.5-5.1); SODIUM 141 mmol/L (136-145)
[2024-03-14 11:24] LABS: CALCIUM 8.6 mg/dL (8.5-10.1)
[2024-03-14 11:25] LABS: ALBUMIN 3.3 g/dl (3.4-5.0); ANION GAP 7 mmol/L (4-13); BLOOD UREA NITROGEN 15.4 mg/dL (7-18); CO2 28 mmol/L (21-32); GLUCOSE,RANDOM 116 mg/dL (74-106)
[2024-03-14 11:28] LABS: CREATININE 0.8 mg/dL (0.55-1.3); SGOT/AST 27 U/L (15-37); SGPT/ALT 38 U/L (13-61)
[2024-03-14 11:29] LABS: BILIRUBIN,TOTAL 0.9 mg/dL (0.2-1)
[2024-03-14 11:31] LABS: ALK PHOS 74 U/L (45-117)
[2024-03-15] MEDS: diazePAM 5 MG TABLET PO SCH (06:00)
[2024-03-15 06:06] VITALS: BP 120/88; PULSE 79; RESP 16; TEMP 97.7
[2024-03-15] MEDS: POTASSIUM CHLORIDE ORAL LIQUID 20 MEQ/15 ML PO ONE (09:00)
[2024-03-16] MEDS ORDERED: diazePAM 5 MG TABLET PO SCH (06:00)
[2024-03-17] MEDS ORDERED: diazePAM 5 MG TABLET PO ONE (06:00)
== END 2024-03-15 08:59 | disposition home or self-care (01) | DRG 774 ==
LOC: YASAS 02:37 → Y3N 11:56
PROVIDERS: ADMIT Allergy & Immunology; ATTEND Surgery
PROC: HZ2ZZZZ Detoxification Services for Substance Abuse Treatment (ICD-10-PCS; principal; 2024-03-13)
DX: F10.230 Alcohol dependence with withdrawal, uncomplicated (principal); F14.20 Cocaine dependence, uncomplicated; F17.210 Nicotine dependence, cigarettes, uncomplicated; F25.9 Schizoaffective disorder, unspecified; F31.9 Bipolar disorder, unspecified; E87.6 Hypokalemia; M16.12 Unilateral primary osteoarthritis, left hip; M54.50 Low back pain, unspecified; G89.29 Other chronic pain; Z99.89 Dependence on other enabling machines and devices
CPT/HCPCS: 36415; 80053; 80305; 80307; 85027; 86780; 93005; 93010

== ENCOUNTER 2024-04-04 16:05 | Inpatient (IN) | payer OTHER ==
[2024-04-04] MEDS ORDERED: ALBUTEROL SO4 HFA INHALER IH PRN (16:46)
[2024-04-04 16:47] VITALS: BMI 23.9
[2024-04-04] MEDS ORDERED: MAG HYDROX/AL HYDROX/SIMETH 30 ML UNIT-DOSE CUP PO PRN (16:51)
[2024-04-04] MEDS ORDERED: BENZONATATE 200 MG CAPSULE PO PRN (16:51)
[2024-04-04] MEDS ORDERED: MAGNESIUM HYDROX 2400MG/30ML ORAL SUSPENSION 30 ML CUP PO PRN (16:51)
[2024-04-04] MEDS ORDERED: POLYETHYLENE GLYCOL (HEALTHYLAX) 3350 17 GM PACKET PO PRN (16:51)
[2024-04-04] MEDS ORDERED: DICYCLOMINE HCL 10 MG CAPSULE PO PRN (16:51)
[2024-04-04] MEDS ORDERED: LOPERAMIDE HCL 2 MG CAPSULE PO PRN (16:51)
[2024-04-04] MEDS ORDERED: ACETAMINOPHEN 325 MG TABLET (FP) PO PRN (16:51)
[2024-04-04] MEDS ORDERED: BISMUTH SUBSALICYLATE 524 MG/30 ML PO PRN (16:51)
[2024-04-04] MEDS ORDERED: IBUPROFEN 400 MG TABLET (FP) PO PRN (16:51)
[2024-04-04] MEDS ORDERED: ONDANSETRON *ODT* 4 MG TABLET SL PRN (16:51)
[2024-04-04] MEDS ORDERED: BENZOCAINE/MENTHOL (CHLORASEPTIC ) LOZENGE MM PRN (16:51)
[2024-04-04] MEDS ORDERED: guaiFENesin 600 MG TABLET.ER (FP) PO PRN (16:51)
[2024-04-04] MEDS: THIAMINE 100 MG TABLET PO SCH (21:49)
[2024-04-04] MEDS: MELATONIN 5 MG TABLETS PO SCH (21:49)
[2024-04-04] MEDS: IBUPROFEN 600 MG TABLET (FP) PO PRN (21:49)
[2024-04-05] MEDS: PRENATAL VITAMINS W/ FOLIC ACID TABLET (FP) PO SCH (10:01)
[2024-04-05] MEDS: diazePAM 5 MG TABLET PO SCH (11:58)
[2024-04-05] MEDS: OLANZapine 10 MG TABLET PO SCH (22:17)
[2024-04-05] MEDS: traZODone HCL 50 MG TABLET (FP) PO SCH (22:17)
[2024-04-06] MEDS: ESCITALOPRAM OXALATE 20 MG TABLET PO SCH (10:14)
[2024-04-07] MEDS: diazePAM 5 MG TABLET PO SCH (06:11)
[2024-04-08] MEDS: diazePAM 5 MG TABLET PO SCH (05:47)
[2024-04-08] MEDS: diazePAM 5 MG TABLET PO PRN (09:55)
[2024-04-08] MEDS: METHOCARBAMOL 500 MG TABLET PO PRN (22:54)
[2024-04-09] MEDS: diazePAM 5 MG TABLET PO ONE (06:01)
[2024-04-09 09:29] VITALS: BP 158/87; PULSE 80; RESP 18; TEMP 98.8
== END 2024-04-09 10:11 | disposition home or self-care (01) | DRG 774 ==
LOC: YASAS 16:05 → Y3N 17:00
PROVIDERS: ADMIT Allergy & Immunology; ATTEND Surgery
PROC: HZ2ZZZZ Detoxification Services for Substance Abuse Treatment (ICD-10-PCS; principal; 2024-04-04)
DX: F10.230 Alcohol dependence with withdrawal, uncomplicated (principal); F14.20 Cocaine dependence, uncomplicated; F12.20 Cannabis dependence, uncomplicated; F31.9 Bipolar disorder, unspecified; F25.9 Schizoaffective disorder, unspecified; J45.909 Unspecified asthma, uncomplicated; M16.12 Unilateral primary osteoarthritis, left hip; M54.50 Low back pain, unspecified; G89.29 Other chronic pain; Z99.89 Dependence on other enabling machines and devices; Z72.0 Tobacco use
CPT/HCPCS: 80305; 80307

== ENCOUNTER 2024-05-20 13:45 | Inpatient (IN) | payer OTHER ==
[2024-05-20 14:53] VITALS: BMI 20.8
[2024-05-20] MEDS ORDERED: NALOXONE (NARCAN) HCL 4 MG/0.1 ML SPRAY NS PRN (15:53)
[2024-05-20] MEDS ORDERED: MAGNESIUM HYDROX 2400MG/30ML ORAL SUSPENSION 30 ML CUP PO PRN (15:53)
[2024-05-20] MEDS ORDERED: DICYCLOMINE HCL 10 MG CAPSULE PO PRN (15:53)
[2024-05-20] MEDS ORDERED: MAG HYDROX/AL HYDROX/SIMETH 30 ML UNIT-DOSE CUP PO PRN (15:53)
[2024-05-20] MEDS ORDERED: IBUPROFEN 600 MG TABLET (FP) PO PRN (15:53)
[2024-05-20] MEDS ORDERED: guaiFENesin 600 MG TABLET.ER (FP) PO PRN (15:53)
[2024-05-20] MEDS ORDERED: ONDANSETRON *ODT* 4 MG TABLET SL PRN (15:53)
[2024-05-20] MEDS ORDERED: LOPERAMIDE HCL 2 MG CAPSULE PO PRN (15:53)
[2024-05-20] MEDS ORDERED: POLYETHYLENE GLYCOL (HEALTHYLAX) 3350 17 GM PACKET PO PRN (15:53)
[2024-05-20] MEDS ORDERED: ACETAMINOPHEN 325 MG TABLET (FP) PO PRN (15:53)
[2024-05-20] MEDS ORDERED: chlordiazePOXIDE HCL 25 MG CAPSULE PO PRN (15:53)
[2024-05-20] MEDS ORDERED: BENZONATATE 200 MG CAPSULE PO PRN (15:53)
[2024-05-20] MEDS ORDERED: BENZOCAINE/MENTHOL (CHLORASEPTIC ) LOZENGE MM PRN (15:53)
[2024-05-20] MEDS ORDERED: BISMUTH SUBSALICYLATE 524 MG/30 ML PO PRN (15:53)
[2024-05-20] MEDS ORDERED: NALOXONE HCL 0.4 MG/ML VIAL IM PRN (15:53)
[2024-05-20] MEDS ORDERED: hydrOXYzine PAMOATE 25 MG CAPSULE (FP) PO PRN (15:53)
[2024-05-20] MEDS: PRENATAL VITAMINS W/ FOLIC ACID TABLET (FP) PO SCH (17:42)
[2024-05-20] MEDS: METHOCARBAMOL 500 MG TABLET PO PRN (17:42)
[2024-05-20] MEDS: chlordiazePOXIDE HCL 25 MG CAPSULE PO SCH (22:06)
[2024-05-20] MEDS: IBUPROFEN 400 MG TABLET (FP) PO PRN (22:07)
[2024-05-20] MEDS: THIAMINE 100 MG TABLET PO SCH (22:08)
[2024-05-20] MEDS: MELATONIN 5 MG TABLETS PO SCH (22:08)
[2024-05-21] MEDS ORDERED: diphenhydrAMINE HCL 25 MG CAPSULE (FP) PO ONE (10:38)
[2024-05-21] MEDS ORDERED: ALBUTEROL SO4 HFA INHALER IH PRN (10:43)
[2024-05-21] MEDS ORDERED: ESCITALOPRAM OXALATE 10 MG TABLET ONE (11:31)
[2024-05-21] MEDS: ESCITALOPRAM OXALATE 20 MG TABLET PO SCH (11:31)
[2024-05-21] MEDS: diphenhydrAMINE HCL 25 MG CAPSULE (FP) PO ONE (11:31)
[2024-05-21 14:29] LABS: HEMATOCRIT 39.8 % (35.4-49); HEMOGLOBIN 13.5 GM/dL (11.7-16.9); MCH 33.3 pg (25.7-33.7); MCHC 33.9 g/dl (32.0-35.9); MEAN CELL VOLUME 98.2 fl (80-96); MEAN PLT VOLUME 8.1 fl (7.5-11.1); PLATELET COUNT 202 10^3/uL (134-434); RBC 4.05 M/mm3 (4.00-5.60)
[2024-05-21 14:35] LABS: CHLORIDE 106 mmol/L (98-107); SODIUM 140 mmol/L (136-145)
[2024-05-21 14:42] LABS: ALBUMIN 3.2 g/dl (3.4-5.0); CALCIUM 8.7 mg/dL (8.5-10.1)
[2024-05-21 14:43] LABS: ANION GAP 5 mmol/L (4-13); BLOOD UREA NITROGEN 12.6 mg/dL (7-18); CO2 29 mmol/L (21-32); GLUCOSE,RANDOM 86 mg/dL (74-106)
[2024-05-21 14:46] LABS: CREATININE 0.7 mg/dL (0.55-1.3); SGOT/AST 16 U/L (15-37); SGPT/ALT 17 U/L (13-61)
[2024-05-21 14:47] LABS: BILIRUBIN,TOTAL 1.2 mg/dL (0.2-1); TOT PROT 6.1 g/dl (6.4-8.2)
[2024-05-21 14:48] LABS: ALK PHOS 90 U/L (45-117)
[2024-05-21] MEDS: traZODone HCL 50 MG TABLET (FP) PO SCH (22:07)
[2024-05-21] MEDS: OLANZapine 10 MG TABLET PO SCH (22:07)
[2024-05-21] MEDS: DICLOFENAC SODIUM 25 MG TABLET.DR PO SCH (22:09)
[2024-05-22] MEDS: chlordiazePOXIDE HCL 25 MG CAPSULE PO SCH (05:47)
[2024-05-23] MEDS ORDERED: chlordiazePOXIDE HCL 10 MG CAPSULE PO PRN
[2024-05-23] MEDS: chlordiazePOXIDE HCL 10 MG CAPSULE PO SCH (05:31)
[2024-05-23] MEDS ORDERED: ESCITALOPRAM OXALATE 10 MG TABLET ONE (10:02)
[2024-05-24] MEDS: chlordiazePOXIDE HCL 10 MG CAPSULE PO SCH (05:37)
[2024-05-24] MEDS ORDERED: ESCITALOPRAM OXALATE 10 MG TABLET ONE (09:07)
[2024-05-25] MEDS: chlordiazePOXIDE HCL 10 MG CAPSULE PO ONE (05:31)
[2024-05-25 08:59] VITALS: BP 147/98; PULSE 104; RESP 20; TEMP 98.4
== END 2024-05-25 10:09 | disposition home or self-care (01) | DRG 774 ==
LOC: YASAS 13:45 → Y6N 16:49
PROVIDERS: ADMIT Allergy & Immunology; ATTEND Family Medicine Addiction Medicine
PROC: HZ2ZZZZ Detoxification Services for Substance Abuse Treatment (ICD-10-PCS; principal; 2024-05-20)
DX: F10.230 Alcohol dependence with withdrawal, uncomplicated (principal); F14.20 Cocaine dependence, uncomplicated; F13.20 Sedative, hypnotic or anxiolytic dependence, uncomplicated; F12.20 Cannabis dependence, uncomplicated; F17.210 Nicotine dependence, cigarettes, uncomplicated; F25.1 Schizoaffective disorder, depressive type; F10.282 Alcohol dependence with alcohol-induced sleep disorder; F41.9 Anxiety disorder, unspecified; F32.A Depression, unspecified; J45.909 Unspecified asthma, uncomplicated; M16.12 Unilateral primary osteoarthritis, left hip
CPT/HCPCS: 36415; 80053; 80305; 80307; 85027; 93005; 93010

== ENCOUNTER 2024-06-21 16:47 | Inpatient (IN) | payer OTHER ==
[2024-06-21 17:38] VITALS: BMI 21.2
[2024-06-21] MEDS ORDERED: LOPERAMIDE HCL 2 MG CAPSULE PO PRN (19:09)
[2024-06-21] MEDS ORDERED: ONDANSETRON *ODT* 4 MG TABLET SL PRN (19:09)
[2024-06-21] MEDS ORDERED: MAGNESIUM HYDROX 2400MG/30ML ORAL SUSPENSION 30 ML CUP PO PRN (19:09)
[2024-06-21] MEDS ORDERED: MAG HYDROX/AL HYDROX/SIMETH 30 ML UNIT-DOSE CUP PO PRN (19:09)
[2024-06-21] MEDS ORDERED: NALOXONE (NARCAN) HCL 4 MG/0.1 ML SPRAY NS PRN (19:09)
[2024-06-21] MEDS ORDERED: BENZOCAINE/MENTHOL (CHLORASEPTIC ) LOZENGE MM PRN (19:09)
[2024-06-21] MEDS ORDERED: NALOXONE (NYS OPIOID OVERDOSE PROGRAM) 4 MG/0.1 ML SPRAY NS PRN (19:09)
[2024-06-21] MEDS ORDERED: guaiFENesin 600 MG TABLET.ER (FP) PO PRN (19:09)
[2024-06-21] MEDS ORDERED: BENZONATATE 200 MG CAPSULE PO PRN (19:09)
[2024-06-21] MEDS ORDERED: POLYETHYLENE GLYCOL (HEALTHYLAX) 3350 17 GM PACKET PO PRN (19:09)
[2024-06-21] MEDS ORDERED: hydrOXYzine PAMOATE 25 MG CAPSULE (FP) PO PRN (19:09)
[2024-06-21] MEDS ORDERED: BISMUTH SUBSALICYLATE 524 MG/30 ML PO PRN (19:09)
[2024-06-21] MEDS ORDERED: chlordiazePOXIDE HCL 25 MG CAPSULE PO PRN (19:09)
[2024-06-21] MEDS ORDERED: ACETAMINOPHEN 325 MG TABLET (FP) PO PRN (19:09)
[2024-06-21] MEDS ORDERED: DICYCLOMINE HCL 10 MG CAPSULE PO PRN (19:09)
[2024-06-21] MEDS ORDERED: IBUPROFEN 400 MG TABLET (FP) PO PRN (19:09)
[2024-06-22] MEDS: MELATONIN 5 MG TABLETS PO SCH (00:01)
[2024-06-22] MEDS: THIAMINE 100 MG TABLET PO SCH (00:01)
[2024-06-22] MEDS: chlordiazePOXIDE HCL 25 MG CAPSULE PO SCH (00:02)
[2024-06-22] MEDS ORDERED: ESCITALOPRAM OXALATE 10 MG TABLET ONE (10:31)
[2024-06-22] MEDS ORDERED: ALBUTEROL SO4 HFA INHALER IH PRN (10:40)
[2024-06-22] MEDS: PRENATAL VITAMINS W/ FOLIC ACID TABLET (FP) PO SCH (10:41)
[2024-06-22] MEDS: ESCITALOPRAM OXALATE 20 MG TABLET PO SCH (10:42)
[2024-06-22 14:33] LABS: HEMATOCRIT 42.1 % (35.4-49); HEMOGLOBIN 13.9 GM/dL (11.7-16.9); MCH 32.9 pg (25.7-33.7); MCHC 32.9 g/dl (32.0-35.9); MEAN PLT VOLUME 8.7 fl (7.5-11.1); PLATELET COUNT 213 10^3/uL (134-434); RBC 4.21 M/mm3 (4.00-5.60); WHITE BLOOD COUNT 4.8 K/mm3 (4.0-10.0)
[2024-06-22 14:37] LABS: CHLORIDE 106 mmol/L (98-107); POTASSIUM 3.5 mmol/L (3.5-5.1); SODIUM 143 mmol/L (136-145)
[2024-06-22 14:40] LABS: ALBUMIN 3.3 g/dl (3.4-5.0); ANION GAP 6 mmol/L (4-13); BLOOD UREA NITROGEN 21.1 mg/dL (7-18); CALCIUM 8.8 mg/dL (8.5-10.1); CO2 31 mmol/L (21-32)
[2024-06-22 14:41] LABS: GLUCOSE,RANDOM 129 mg/dL (74-106)
[2024-06-22 14:43] LABS: CREATININE 0.9 mg/dL (0.55-1.3); SGOT/AST 20 U/L (15-37); SGPT/ALT 27 U/L (13-61)
[2024-06-22 14:44] LABS: TOT PROT 6.1 g/dl (6.4-8.2)
[2024-06-22 14:45] LABS: BILIRUBIN,TOTAL 1.1 mg/dL (0.2-1)
[2024-06-22 14:46] LABS: ALK PHOS 98 U/L (45-117)
[2024-06-22] MEDS: METHOCARBAMOL 500 MG TABLET PO PRN (17:52)
[2024-06-22] MEDS: OLANZapine 10 MG TABLET PO SCH (23:03)
[2024-06-22] MEDS: traZODone HCL 50 MG TABLET (FP) PO SCH (23:05)
[2024-06-23] MEDS: chlordiazePOXIDE HCL 25 MG CAPSULE PO SCH (05:45)
[2024-06-23] MEDS ORDERED: ESCITALOPRAM OXALATE 10 MG TABLET ONE (10:18)
[2024-06-23] MEDS: IBUPROFEN 600 MG TABLET (FP) PO PRN (17:35)
[2024-06-24] MEDS ORDERED: chlordiazePOXIDE HCL 10 MG CAPSULE PO PRN
[2024-06-24] MEDS: chlordiazePOXIDE HCL 10 MG CAPSULE PO SCH (05:50)
[2024-06-25] MEDS: chlordiazePOXIDE HCL 10 MG CAPSULE PO SCH (05:55)
[2024-06-25 11:34] VITALS: BP 130/84; PULSE 95; RESP 16; TEMP 98.7
[2024-06-26] MEDS ORDERED: chlordiazePOXIDE HCL 10 MG CAPSULE PO ONE (05:00)
== END 2024-06-25 10:00 | disposition home or self-care (01) | DRG 774 ==
LOC: YASAS 16:47 → Y6N 21:15
PROVIDERS: ADMIT Allergy & Immunology; ATTEND Allergy & Immunology
PROC: HZ2ZZZZ Detoxification Services for Substance Abuse Treatment (ICD-10-PCS; principal; 2024-06-21)
DX: F10.230 Alcohol dependence with withdrawal, uncomplicated (principal); F14.20 Cocaine dependence, uncomplicated; F12.20 Cannabis dependence, uncomplicated; F17.210 Nicotine dependence, cigarettes, uncomplicated; F25.1 Schizoaffective disorder, depressive type; F19.282 Other psychoactive substance dependence with psychoactive substance-induced sleep disorder; J45.909 Unspecified asthma, uncomplicated; M16.12 Unilateral primary osteoarthritis, left hip; M54.50 Low back pain, unspecified; G89.29 Other chronic pain; Z99.89 Dependence on other enabling machines and devices
CPT/HCPCS: 36415; 80053; 80305; 80307; 85027; 86780; 87811; 93005; 93010

== ENCOUNTER 2024-07-26 11:38 | Inpatient (IN) | payer OTHER ==
[2024-07-26 12:03] VITALS: BMI 21.9
[2024-07-26] MEDS ORDERED: BENZONATATE 200 MG CAPSULE PO PRN (13:02)
[2024-07-26] MEDS ORDERED: guaiFENesin 600 MG TABLET.ER (FP) PO PRN (13:02)
[2024-07-26] MEDS ORDERED: MAG HYDROX/AL HYDROX/SIMETH 30 ML UNIT-DOSE CUP PO PRN (13:02)
[2024-07-26] MEDS ORDERED: DICYCLOMINE HCL 10 MG CAPSULE PO PRN (13:02)
[2024-07-26] MEDS ORDERED: IBUPROFEN 400 MG TABLET (FP) PO PRN (13:02)
[2024-07-26] MEDS ORDERED: POLYETHYLENE GLYCOL (HEALTHYLAX) 3350 17 GM PACKET PO PRN (13:02)
[2024-07-26] MEDS ORDERED: MAGNESIUM HYDROX 2400MG/30ML ORAL SUSPENSION 30 ML CUP PO PRN (13:02)
[2024-07-26] MEDS ORDERED: chlordiazePOXIDE HCL 25 MG CAPSULE PO PRN (13:02)
[2024-07-26] MEDS ORDERED: hydrOXYzine PAMOATE 25 MG CAPSULE (FP) PO PRN (13:02)
[2024-07-26] MEDS ORDERED: LOPERAMIDE HCL 2 MG CAPSULE PO PRN (13:02)
[2024-07-26] MEDS ORDERED: ONDANSETRON *ODT* 4 MG TABLET SL PRN (13:02)
[2024-07-26] MEDS ORDERED: BISMUTH SUBSALICYLATE 262 MG/15 ML BTL PO PRN (13:02)
[2024-07-26] MEDS ORDERED: BENZOCAINE/MENTHOL (CHLORASEPTIC ) LOZENGE MM PRN (13:02)
[2024-07-26] MEDS ORDERED: NALOXONE (NARCAN) HCL 4 MG/0.1 ML SPRAY NS PRN (13:02)
[2024-07-26] MEDS ORDERED: ACETAMINOPHEN 325 MG TABLET (FP) PO PRN (13:02)
[2024-07-26] MEDS ORDERED: ALBUTEROL SO4 HFA INHALER IH PRN (13:06)
[2024-07-26] MEDS: chlordiazePOXIDE HCL 25 MG CAPSULE PO SCH (17:35)
[2024-07-26] MEDS: IBUPROFEN 600 MG TABLET (FP) PO PRN (17:38)
[2024-07-26] MEDS: traZODone HCL 50 MG TABLET (FP) PO SCH (22:06)
[2024-07-26] MEDS: MELATONIN 5 MG TABLETS PO SCH (22:06)
[2024-07-26] MEDS: OLANZapine 10 MG TABLET PO SCH (22:06)
[2024-07-26] MEDS: THIAMINE 100 MG TABLET PO SCH (22:06)
[2024-07-26] MEDS: LIDOCAINE PATCH REMOVAL MC SCH (22:07)
[2024-07-26] MEDS: METHOCARBAMOL 500 MG TABLET PO PRN (22:09)
[2024-07-27] MEDS: PRENATAL VITAMINS W/ FOLIC ACID TABLET (FP) PO SCH (10:10)
[2024-07-27] MEDS: ESCITALOPRAM OXALATE 10 MG TABLET PO SCH (10:10)
[2024-07-27] MEDS: LIDOCAINE 5% TOPICAL PATCH TP SCH (10:11)
[2024-07-27 11:18] LABS: HEMATOCRIT 41.7 % (35.4-49); HEMOGLOBIN 14.3 GM/dL (11.7-16.9); MCH 33.8 pg (25.7-33.7); MCHC 34.2 g/dl (32.0-35.9); MEAN CELL VOLUME 98.8 fl (80-96); MEAN PLT VOLUME 8.9 fl (7.5-11.1); PLATELET COUNT 191 10^3/uL (134-434); RBC 4.22 M/mm3 (4.00-5.60); WHITE BLOOD COUNT 4.8 K/mm3 (4.0-10.0)
[2024-07-27 11:31] LABS: CALCIUM 9.5 mg/dL (8.5-10.1)
[2024-07-27 11:32] LABS: ALBUMIN 4.1 g/dl (3.4-5.0); BLOOD UREA NITROGEN 20.9 mg/dL (7-18)
[2024-07-27 11:36] LABS: BILIRUBIN,TOTAL 1.3 mg/dL (0.2-1)
[2024-07-27 11:37] LABS: TOT PROT 7.6 g/dl (6.4-8.2)
[2024-07-28] MEDS: chlordiazePOXIDE HCL 25 MG CAPSULE PO SCH (05:55)
[2024-07-28] MEDS: NALTREXONE HCL 50 MG TABLET PO SCH (15:30)
[2024-07-29] MEDS ORDERED: chlordiazePOXIDE HCL 10 MG CAPSULE PO PRN
[2024-07-29] MEDS: chlordiazePOXIDE HCL 10 MG CAPSULE PO SCH (05:40)
[2024-07-29] MEDS: NALOXONE (NYS OPIOID OVERDOSE PROGRAM) 4 MG/0.1 ML SPRAY NS SCH (15:42)
[2024-07-29] MEDS: amLODIPine BESYLATE 5 MG TABLET (FP) PO SCH (15:48)
[2024-07-30] MEDS: chlordiazePOXIDE HCL 10 MG CAPSULE PO SCH (05:50)
[2024-07-30 07:02] VITALS: BP 148/95; PULSE 74; RESP 18; TEMP 98
[2024-07-30] MEDS: NALOXONE (NYS OPIOID OVERDOSE PROGRAM) 4 MG/0.1 ML SPRAY NS PRN (08:54)
[2024-07-31] MEDS ORDERED: chlordiazePOXIDE HCL 10 MG CAPSULE PO ONE (05:00)
== END 2024-07-30 08:57 | disposition home or self-care (01) | DRG 774 ==
LOC: YASAS 11:38 → Y6N 13:22
PROVIDERS: ADMIT Allergy & Immunology; ATTEND Surgery
PROC: HZ2ZZZZ Detoxification Services for Substance Abuse Treatment (ICD-10-PCS; principal; 2024-07-26)
DX: F10.230 Alcohol dependence with withdrawal, uncomplicated (principal); F14.20 Cocaine dependence, uncomplicated; F12.20 Cannabis dependence, uncomplicated; F17.210 Nicotine dependence, cigarettes, uncomplicated; F19.282 Other psychoactive substance dependence with psychoactive substance-induced sleep disorder; F25.1 Schizoaffective disorder, depressive type; I10 Essential (primary) hypertension; J45.909 Unspecified asthma, uncomplicated; M16.12 Unilateral primary osteoarthritis, left hip; Z99.89 Dependence on other enabling machines and devices
CPT/HCPCS: 36415; 80053; 80305; 80307; 85027; 86780; 87811; 93005; 93010

== ENCOUNTER 2024-09-05 10:30 | Inpatient (IN) | payer OTHER ==
[2024-09-05 11:13] VITALS: BMI 21.1
[2024-09-05] MEDS ORDERED: DICYCLOMINE HCL 10 MG CAPSULE PO PRN (11:35)
[2024-09-05] MEDS ORDERED: BISMUTH SUBSALICYLATE 524 MG/30 ML PO PRN (11:35)
[2024-09-05] MEDS ORDERED: POLYETHYLENE GLYCOL (HEALTHYLAX) 3350 17 GM PACKET PO PRN (11:35)
[2024-09-05] MEDS ORDERED: MAGNESIUM HYDROX 2400MG/30ML ORAL SUSPENSION 30 ML CUP PO PRN (11:35)
[2024-09-05] MEDS ORDERED: NICOTINE POLACRILEX 2 MG LOZENGE BC PRN (11:35)
[2024-09-05] MEDS ORDERED: BENZOCAINE/MENTHOL (CHLORASEPTIC ) LOZENGE MM PRN (11:35)
[2024-09-05] MEDS ORDERED: ONDANSETRON *ODT* 4 MG TABLET SL PRN (11:35)
[2024-09-05] MEDS ORDERED: LOPERAMIDE HCL 2 MG CAPSULE PO PRN (11:35)
[2024-09-05] MEDS ORDERED: ACETAMINOPHEN 325 MG TABLET (FP) PO PRN (11:35)
[2024-09-05] MEDS ORDERED: P-EPHED 60MG/TRIPROLIDI 2.5MG TABLET PO PRN (11:35)
[2024-09-05] MEDS ORDERED: guaiFENesin 600 MG TABLET.ER (FP) PO PRN (11:35)
[2024-09-05] MEDS ORDERED: MAG HYDROX/AL HYDROX/SIMETH 30 ML UNIT-DOSE CUP PO PRN (11:35)
[2024-09-05] MEDS ORDERED: NICOTINE POLACRILEX 2 MG GUM BUC PRN (11:35)
[2024-09-05] MEDS ORDERED: IBUPROFEN 400 MG TABLET (FP) PO PRN (11:35)
[2024-09-05] MEDS ORDERED: BENZONATATE 200 MG CAPSULE PO PRN (11:35)
[2024-09-05] MEDS ORDERED: IBUPROFEN 600 MG TABLET (FP) PO ONE (15:00)
[2024-09-05] MEDS: IBUPROFEN 600 MG TABLET (FP) PO PRN (15:02)
[2024-09-05] MEDS ORDERED: ALBUTEROL SO4 HFA INHALER IH PRN (17:16)
[2024-09-05] MEDS: hydrOXYzine PAMOATE 25 MG CAPSULE (FP) PO PRN (22:22)
[2024-09-05] MEDS: THIAMINE 100 MG TABLET PO SCH (22:22)
[2024-09-05] MEDS: METHOCARBAMOL 500 MG TABLET PO PRN (22:22)
[2024-09-05] MEDS: MELATONIN 5 MG TABLETS PO SCH (22:22)
[2024-09-06] MEDS ORDERED: ESCITALOPRAM OXALATE 10 MG TABLET ONE ×2 (09:23→09:24)
[2024-09-06] MEDS: LIDOCAINE 4% PATCH TP SCH (09:25)
[2024-09-06] MEDS: amLODIPine BESYLATE 5 MG TABLET (FP) PO SCH (09:25)
[2024-09-06] MEDS: ESCITALOPRAM OXALATE 20 MG TABLET PO SCH (09:25)
[2024-09-06] MEDS: PRENATAL VITAMINS W/ FOLIC ACID TABLET (FP) PO SCH (09:25)
[2024-09-06 11:33] LABS: HEMATOCRIT 40.3 % (35.4-49); HEMOGLOBIN 13.9 GM/dL (11.7-16.9); MCH 34.1 pg (25.7-33.7); MCHC 34.5 g/dl (32.0-35.9); MEAN CELL VOLUME 98.8 fl (80-96); MEAN PLT VOLUME 7.9 fl (7.5-11.1); PLATELET COUNT 257 10^3/uL (134-434); RBC 4.08 M/mm3 (4.00-5.60); RDW 14.5 % (11.9-15.9); WHITE BLOOD COUNT 3.5 K/mm3 (4.0-10.0)
[2024-09-06 12:19] LABS: POTASSIUM 3.9 mmol/L (3.5-5.1)
[2024-09-06 12:22] LABS: CALCIUM 8.9 mg/dL (8.5-10.1)
[2024-09-06 12:23] LABS: ALBUMIN 3.4 g/dl (3.4-5.0); BLOOD UREA NITROGEN 17.7 mg/dL (7-18)
[2024-09-06 12:26] LABS: CREATININE 0.9 mg/dL (0.55-1.3)
[2024-09-06 12:28] LABS: TOT PROT 6.3 g/dl (6.4-8.2)
[2024-09-06] MEDS: NALOXONE (NYS OPIOID OVERDOSE PROGRAM) 4 MG/0.1 ML SPRAY NS SCH (14:51)
[2024-09-06] MEDS: NALTREXONE HCL 50 MG TABLET PO SCH (14:53)
[2024-09-06] MEDS: OLANZapine 10 MG TABLET PO SCH (22:19)
[2024-09-06] MEDS: traZODone HCL 50 MG TABLET (FP) PO SCH (22:19)
[2024-09-06] MEDS: LIDOCAINE PATCH REMOVAL MC SCH (23:09)
[2024-09-07 06:37] VITALS: TEMP 97.7
[2024-09-07] MEDS ORDERED: ESCITALOPRAM OXALATE 10 MG TABLET ONE (09:50)
[2024-09-07 09:56] VITALS: RESP 16
[2024-09-07 13:41] VITALS: BP 115/58; PULSE 85
== END 2024-09-07 13:43 | disposition home or self-care (01) | DRG 774 ==
LOC: YASAS 10:30 → Y6N 14:56
PROVIDERS: ADMIT Neuromusculoskeletal Medicine & OMM; ATTEND Surgery
PROC: HZ2ZZZZ Detoxification Services for Substance Abuse Treatment (ICD-10-PCS; principal; 2024-09-05)
DX: F10.20 Alcohol dependence, uncomplicated (principal); F14.20 Cocaine dependence, uncomplicated; F12.20 Cannabis dependence, uncomplicated; F17.210 Nicotine dependence, cigarettes, uncomplicated; F31.9 Bipolar disorder, unspecified; F25.1 Schizoaffective disorder, depressive type; I10 Essential (primary) hypertension; J45.20 Mild intermittent asthma, uncomplicated; M16.12 Unilateral primary osteoarthritis, left hip; M54.50 Low back pain, unspecified; G89.29 Other chronic pain; R63.4 Abnormal weight loss; Z68.21 Body mass index [BMI] 21.0-21.9, adult; Z99.89 Dependence on other enabling machines and devices
CPT/HCPCS: 36415; 80053; 85027

== ENCOUNTER 2024-11-29 11:28 | Inpatient (IN) | payer OTHER ==
[2024-11-29 11:57] VITALS: BMI 21.2
[2024-11-29] MEDS ORDERED: LOPERAMIDE HCL 2 MG CAPSULE PO PRN (12:26)
[2024-11-29] MEDS ORDERED: ONDANSETRON *ODT* 4 MG TABLET SL PRN (12:26)
[2024-11-29] MEDS ORDERED: guaiFENesin 600 MG TABLET.ER (FP) PO PRN (12:26)
[2024-11-29] MEDS ORDERED: ACETAMINOPHEN 325 MG TABLET (FP) PO PRN (12:26)
[2024-11-29] MEDS ORDERED: BENZONATATE 200 MG CAPSULE PO PRN (12:26)
[2024-11-29] MEDS ORDERED: BISMUTH SUBSALICYLATE 524 MG/30 ML PO PRN (12:26)
[2024-11-29] MEDS ORDERED: MAG HYDROX/AL HYDROX/SIMETH 30 ML UNIT-DOSE CUP PO PRN (12:26)
[2024-11-29] MEDS ORDERED: BENZOCAINE/MENTHOL (CHLORASEPTIC ) LOZENGE MM PRN (12:26)
[2024-11-29] MEDS ORDERED: NALOXONE (NARCAN) HCL 4 MG/0.1 ML SPRAY NS PRN (12:26)
[2024-11-29] MEDS ORDERED: POLYETHYLENE GLYCOL (HEALTHYLAX) 3350 17 GM PACKET PO PRN (12:26)
[2024-11-29] MEDS ORDERED: IBUPROFEN 400 MG TABLET (FP) PO PRN (12:26)
[2024-11-29] MEDS ORDERED: MAGNESIUM HYDROX 2400MG/30ML ORAL SUSPENSION 30 ML CUP PO PRN (12:26)
[2024-11-29] MEDS ORDERED: DICYCLOMINE HCL 10 MG CAPSULE PO PRN (12:26)
[2024-11-29] MEDS ORDERED: ALBUTEROL SO4 HFA INHALER IH PRN (12:30)
[2024-11-29] MEDS: LIDOCAINE 5% TOPICAL PATCH TP SCH (14:29)
[2024-11-29] MEDS: GABAPENTIN 100 MG CAPSULE PO SCH (14:29)
[2024-11-29] MEDS: NALTREXONE HCL 50 MG TABLET PO ONE (15:17)
[2024-11-29] MEDS: chlordiazePOXIDE HCL 25 MG CAPSULE PO PRN (17:20)
[2024-11-29] MEDS: IBUPROFEN 600 MG TABLET (FP) PO PRN (17:21)
[2024-11-29] MEDS: THIAMINE 100 MG TABLET PO SCH (22:21)
[2024-11-29] MEDS: MIRTAZAPINE 15 MG TABLET (FP) PO SCH (22:21)
[2024-11-29] MEDS: HYDROCORTISONE 1% TOPICAL LOTION 118 ML BOTTLE TP SCH (22:22)
[2024-11-29] MEDS: LIDOCAINE PATCH REMOVAL MC SCH (22:23)
[2024-11-29] MEDS: chlordiazePOXIDE HCL 25 MG CAPSULE PO SCH (22:25)
[2024-11-29] MEDS: MELATONIN 5 MG TABLETS PO SCH (22:28)
[2024-11-29] MEDS: METHOCARBAMOL 500 MG TABLET PO PRN (22:29)
[2024-11-30] MEDS: NALTREXONE HCL 50 MG TABLET PO SCH (09:14)
[2024-11-30] MEDS: PRENATAL VITAMINS W/ FOLIC ACID TABLET (FP) PO SCH (09:14)
[2024-11-30] MEDS: hydrOXYzine PAMOATE 25 MG CAPSULE (FP) PO PRN (09:14)
[2024-11-30] MEDS ORDERED: ESCITALOPRAM OXALATE 10 MG TABLET ONE (09:15)
[2024-11-30] MEDS: ESCITALOPRAM OXALATE 20 MG TABLET PO SCH (09:17)
[2024-11-30 11:37] LABS: POTASSIUM 3.3 mmol/L (3.5-5.1)
[2024-11-30 11:48] LABS: CALCIUM 8.6 mg/dL (8.5-10.1)
[2024-11-30 11:49] LABS: ALBUMIN 3.8 g/dl (3.4-5.0); BLOOD UREA NITROGEN 8.5 mg/dL (7-18)
[2024-11-30 11:53] LABS: TOT PROT 6.9 g/dl (6.4-8.2)
[2024-11-30 12:11] LABS: HEMATOCRIT 40.1 % (35.4-49); HEMOGLOBIN 13.5 GM/dL (11.7-16.9); MCHC 33.7 g/dl (32.0-35.9); MEAN CELL VOLUME 97.8 fl (80-96); MEAN PLT VOLUME 8.7 fl (7.5-11.1); PLATELET COUNT 195 10^3/uL (134-434); RDW 14.2 % (11.9-15.9); WHITE BLOOD COUNT 4.2 K/mm3 (4.0-10.0)
[2024-11-30] MEDS: POTASSIUM CHLORIDE ORAL LIQUID 20 MEQ/15 ML PO ONE (17:43)
[2024-11-30] MEDS: OLANZapine 10 MG TABLET PO SCH (22:26)
[2024-11-30] MEDS: traZODone HCL 50 MG TABLET (FP) PO SCH (22:27)
[2024-12-01] MEDS: chlordiazePOXIDE HCL 25 MG CAPSULE PO SCH (06:00)
[2024-12-01] MEDS ORDERED: ESCITALOPRAM OXALATE 10 MG TABLET ONE (09:08)
[2024-12-01] MEDS: POTASSIUM CHLORIDE ORAL LIQUID 20 MEQ/15 ML PO ONE (11:48)
[2024-12-02] MEDS ORDERED: chlordiazePOXIDE HCL 10 MG CAPSULE PO PRN
[2024-12-02] MEDS: chlordiazePOXIDE HCL 10 MG CAPSULE PO SCH (05:46)
[2024-12-02 09:28] VITALS: RESP 18; TEMP 97.6
[2024-12-02] MEDS ORDERED: ESCITALOPRAM OXALATE 10 MG TABLET ONE (09:39)
[2024-12-02] MEDS: POTASSIUM CHLORIDE ORAL LIQUID 20 MEQ/15 ML PO ONE (11:02)
[2024-12-02] MEDS: amLODIPine BESYLATE 10 MG TABLET (FP) PO SCH (12:30)
[2024-12-02 13:26] VITALS: BP 161/90; PULSE 98
[2024-12-03] MEDS ORDERED: chlordiazePOXIDE HCL 10 MG CAPSULE PO SCH (05:00)
[2024-12-04] MEDS ORDERED: chlordiazePOXIDE HCL 10 MG CAPSULE PO ONE (05:00)
== END 2024-12-02 15:40 | disposition left against medical advice (07) | DRG 770 ==
LOC: YASAS 11:28 → Y6N 13:45
PROVIDERS: ADMIT Allergy & Immunology; ATTEND Allergy & Immunology
PROC: HZ2ZZZZ Detoxification Services for Substance Abuse Treatment (ICD-10-PCS; principal; 2024-11-29)
DX: F10.230 Alcohol dependence with withdrawal, uncomplicated (principal); F14.20 Cocaine dependence, uncomplicated; F12.20 Cannabis dependence, uncomplicated; F17.210 Nicotine dependence, cigarettes, uncomplicated; F19.282 Other psychoactive substance dependence with psychoactive substance-induced sleep disorder; I10 Essential (primary) hypertension; J45.909 Unspecified asthma, uncomplicated; M16.12 Unilateral primary osteoarthritis, left hip; M54.50 Low back pain, unspecified; G89.29 Other chronic pain; Z99.89 Dependence on other enabling machines and devices
CPT/HCPCS: 0241U-QW; 36415; 80053; 80305; 80307; 85027; 86780; 93005; 93010